=== PATIENT | female | born 1945 | race Caucasian/White ===

== ENCOUNTER 2023-05-03 13:41 | Outpatient (REF) | payer OTHER, SELFPAY ==
--- NOTE | ~2023-05-03 | XR_ITS ---
EXAMINATION: XR HIP, LEFT CLINICAL INFORMATION: Left hip osteoarthritis. COMPARISON: None available. TECHNIQUE: AP view of the lower pelvis as well as a frog-leg lateral view of the left hip. FINDINGS: Severe bilateral hip joint space narrowing with left femoral acetabular bony remodeling/flattening of the femoral head. Prominent left-sided subchondral sclerosis and subchondral cystic change. Large bilateral marginal osteophytes. No acute fracture or dislocation. No concerning lytic or blastic osseous lesion. Pelvic phleboliths. XR/XR hip LT min 2V IMPRESSION: Severe bilateral hip osteoarthritis, left greater than right with bony remodeling/flattening of the left femoral head.
== END 2023-05-03 13:42 | disposition home or self-care (01) ==
LOC: HO.HOSX 13:41
PROVIDERS: PCP Internal Medicine Pulmonary Disease; Visit Provider Orthopaedic Surgery
DX: M16.12 Unilateral primary osteoarthritis, left hip (principal)
CPT/HCPCS: 73502

== ENCOUNTER 2023-05-03 13:41 | Outpatient (AMB) | payer OTHER, SELFPAY ==
--- NOTE | 2023-05-03 14:10 | MHC.OFFVIS ---
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 Peres back in Sep 2022. Pt state her left hip is very painful. Pt states she was told she has a lot of arthritis in her left hip which is causing left leg pain. Pt states this pain started in Aug 2022. Pt denies any injury to her hip prior to her pain. Pt states she has tried OTC medications, ice,heat with no relief. Pt states she had 2 previous injections, one in her hip (Mar 2023) and one in her back (2021) which helped only for a few weeks. Pt denies any previous surgeries on her hip. The patient describes her pain as sharp and severe in nature, 05/22. Patient has difficulty walking even short distances because of her pain. At this point her left hip pain is interfering with her activities of daily living and her ability to sleep well through the night. The patient does walk with a cane. Allergies lisinopril Allergy (Intermediate, Verified 05/03/23 14:14) Muscle cramps pantoprazole Allergy (Intermediate, Verified 05/03/23 14:14) Rash pravastatin Allergy (Intermediate, Verified 05/03/23 14:14) Muscle Pain Medication List - Last Reconciled 05/03/23 by Jim Peres MD amlodipine 5 mg PO DAILY celecoxib 200 mg PO DAILY PFSH Surgical History (Updated 05/03/23 @ 14:19 by Zeina Ulrich MA) History of total right knee replacement (TKR) History of total left knee replacement (TKR) Family History (Updated 05/03/23 @ 14:16 by Zeina Ulrich MA) Mother Breast cancer Sister Dementia Leukemia Father Emphysema of lung Social History (Updated 05/03/23 @ 14:15 by Zeina Ulrich MA) Household Members: Significant Other Housing: Condominium Alcohol intake: current Alcohol intake frequency: holidays/special occasions only Patient Tobacco Use Status: Never used Tobacco Use of substances other than those prescribed or required for medical reasons: No Current occupational status: retired Physical Exam Const Other: Well-nourished well-developed very friendly female awake alert and oriented x3 in no acute distress Extrem Other: Bilateral lower extremity examination shows good capillary refill, no skin lesions noted, normal sensation light touch Left hip examination shows decreased range of motion when compared to her right hip, pain with range of motion, no tenderness over her bursa Results Reviewed Results Reviewed: X-rays of the patient's left hip show severe joint space narrowing with grade 4 [id number] arthritis, subchondral sclerosis, osteophyte formation, no acute bony abnormalities Assessment & Plan Assessment & Plan (1) Arthritis of left hip: Code(s): M16.12 - Unilateral primary osteoarthritis, left hip Plan: Ms. Cormier presents with progressively worsening left hip pain due to end-stage degenerative joint disease. I had a lengthy discussion with the patient regarding the treatment options. At this point she has failed continued non operative treatments. The risks and benefits of left total hip replacement surgery were discussed at length with the patient. The patient wishes to proceed. I will have my office contact the patient to pick a surgery date. I will see her back 1 week prior to her surgery to answer any final questions that she might have. Feel free to call me at any time should questions regarding her orthopedic management arise. Feel free to call me at any time should questions regarding her orthopedic management arise. I spent 22 minutes in reviewing the patient's records and imaging studies, seeing the patient and documenting in the medical record. Orders: Orders XR hip LT min 2V Today M16.12 - Unilateral primary osteoarthritis, left hip Coding Level of Care Code Est Pt Level 2 (10256) Diagnoses Arthritis of left hip M16.12
== END 2023-05-03 15:00 | disposition home or self-care (01) ==
PROVIDERS: PCP Internal Medicine Pulmonary Disease; Visit Provider Orthopaedic Surgery
DX: M16.12 Unilateral primary osteoarthritis, left hip (principal)
CPT/HCPCS: 99212

== ENCOUNTER → 2023-05-23 12:17 | Outpatient (BNVA) | payer OTHER, SELFPAY | PROVIDERS: PCP Internal Medicine Pulmonary Disease; Visit Provider Orthopaedic Surgery ==

== ENCOUNTER 2023-06-13 10:16 | Outpatient (AMB) | payer OTHER, SELFPAY ==
--- NOTE | 2023-06-13 10:35 | A.OFFVIS_ITS ---
Intake Intake Visit Reasons: Preop LT JERRY 06/18/23 NE Intake Note: Ms. Cormier presents with complaints of progressively worsening left hip pain. She describes her pain as sharp and severe in nature, 05/22. Her pain has gotten worse in spite of continued non operative treatments. Pt denies any injury to her hip prior to her pain. Pt states she has tried OTC medications, ice,heat with no relief. Pt states she had 2 previous injections, one in her hip (Mar 2023) and one in her back (2021) which helped only for a few weeks. Pt denies any previous surgeries on her hip. The patient describes her pain as sharp and severe in nature, 05/22. Patient has difficulty walking even short distances because of her pain. At this point her left hip pain is interfering with her activities of daily living and her ability to sleep well through the night. The patient does walk with a cane. The pain management agreement was reviewed with the patient. Allergies pantoprazole Allergy (Intermediate, Verified 06/13/23 10:53) Rash pravastatin Allergy (Intermediate, Verified 06/13/23 10:53) Muscle Pain Medication List - Last Reconciled 06/13/23 by Thania Terrazas RN amlodipine 5 mg PO DAILY celecoxib 200 mg PO BID hydroxyzine HCl 5 mg PO TID PRN walker Folding front wheeled walker [facility] Medical History (Updated 06/08/23 @ 12:18 by Krystina Zapata RN) Eczema HTN (hypertension) Osteoarthritis Surgical History (Updated 06/08/23 @ 12:13 by Krystina Zapata, BOBBY) History of Hx of colonoscopy History of back surgery History of total right knee replacement (TKR) History of total left knee replacement (TKR) Family History (Updated 05/03/23 @ 14:16 by Zeina Ulrich MA) Mother Breast cancer Sister Dementia Leukemia Father Emphysema of lung Social History (Updated 06/08/23 @ 12:16 by Krystina Zapata, BOBBY) Household Members: Spouse Housing: Condominium Are you a primary career development engineer to a significant other at home: No Do you presently have visiting nurse or other home services: No 75 years or older and lives alone: No Alcohol intake: current Alcohol intake frequency: holidays/special occasions only Patient Tobacco Use Status: Never used Tobacco Use of substances other than those prescribed or required for medical reasons: No Current occupational status: retired Physical Exam Const Other: Well-nourished well-developed very friendly female awake alert and oriented x3 in no acute distress Lungs - clear to auscultation bilaterally with symmetric expansion Cardiovascular exam - regular rate and rhythm Abdominal exam - soft nontender nondistended Extrem Other: Bilateral lower extremity examination shows good capillary refill, no skin lesions noted, normal sensation light touch Left hip examination shows decreased range of motion when compared to her right hip, pain with range of motion, no tenderness over her bursa Results Reviewed Results Reviewed: X-rays of the patient's left hip show end-stage degenerative joint disease with grade 4 xxts-le-vytl arthritis, subchondral sclerosis, osteophyte formation, no bony abnormalities Assessment & Plan Assessment & Plan (1) Arthritis of left hip: Code(s): M16.12 - Unilateral primary osteoarthritis, left hip Plan Ms. Cormier presents with progressively worsening left hip pain due to end-stage degenerative joint disease. I had a lengthy discussion with the patient regarding the treatment options. At this point she has failed continued non operative treatments. The risks and benefits of left total hip replacement surgery were discussed at length with the patient. The patient wishes to proceed with surgery. coordinator of rehabilitation services will the following her surgeries are for home physical therapy and nursing. I will see the patient back 2-3 weeks following her surgery for her 1st postoperative appointment. Patient will follow-up as instructed. Feel free to call me at any time should questions regarding her orthopedic management arise. I spent 22 minutes in reviewing the patient's records and imaging studies, seeing the patient and documenting in the medical record. Coding Level of Care Code Est Pt Level 2 (34814) Diagnoses Arthritis of left hip M16.12
== END 2023-06-13 11:31 | disposition home or self-care (01) ==
PROVIDERS: PCP Internal Medicine Pulmonary Disease; Visit Provider Orthopaedic Surgery
DX: M16.12 Unilateral primary osteoarthritis, left hip (principal)
CPT/HCPCS: 99212

== ENCOUNTER → 2023-06-13 10:16 | Outpatient (BNVA) | payer OTHER, SELFPAY | PROVIDERS: PCP Internal Medicine Pulmonary Disease; Visit Provider Orthopaedic Surgery ==

== ENCOUNTER 2023-06-18 06:34 | Inpatient (IN) | payer MEDICARE, SELFPAY ==
[2023-06-08 12:00] VITALS: BP 141/87; PULSE 79; RESP 16; O2SAT 99; BMI 31.9
[2023-06-08 14:19] LABS: MRSA Nasal PCR NEGATIVE (Negative); SA Nasal PCR NEGATIVE (Negative)
--- NOTE | 2023-06-12 12:48 | HO.ANESPROP2 ---
Documented by User: Concha Vidales NP 06/12/23 12:50 HPI - Anesthesia Eval Consult details Narrative: 78yo F for Left Hip Total Replacement PCP cleared PMFSH Active Problems Active Problems: All Active Problems (Updated 06/08/23 @ 12:18 by Krystina Zapata RN) Arthritis of left hip (Acute) Past Medical History Medical History (Updated 06/08/23 @ 12:18 by Krystina Zapata RN) Eczema HTN (hypertension) Osteoarthritis Family History Family History (Updated 05/03/23 @ 14:16 by Zeina Ulrich MA) Mother Breast cancer Sister Dementia Leukemia Father Emphysema of lung Surgical History Surgical History (Updated 06/08/23 @ 12:13 by Krystina Zapata, BOBBY) History of Hx of colonoscopy History of back surgery History of total right knee replacement (TKR) History of total left knee replacement (TKR) Social History Social History (Updated 06/08/23 @ 12:16 by Krystina Zapata RN) Household Members: Significant Other Housing: [facility] Are you a primary neonatal intensive care nurse to a significant other at home: No Do you presently have visiting nurse or other home services: No Alcohol intake: current Alcohol intake frequency: holidays/special occasions only Patient Tobacco Use Status: Never used Tobacco Use of substances other than those prescribed or required for medical reasons: No Have you been hit, kicked, punched, or otherwise hurt by someone within the past year? If so, by whom?: No Do you feel safe in your current relationship?: Yes Is there a partner from a previous relationship who is making you feel unsafe now?: No Are you made to feel afraid or neglected: No Are you DNR?: No Advance Directives: No Advance Directives Information Provided: Yes Advance Directives on File: No Do you have thoughts of harming others: None Do you have a plan to hurt others: No Plan Recently lost weight without trying: No How much weight loss: 2-13 pounds Eating poorly because of decreased appetite: No Nutrition screen score: 1 Nutrition Risks: No Nutritional Risk Patient : No Current occupational status: retired Meds Allergies Allergy/AdvReac Type Severity Reaction Status Date / Time pantoprazole Allergy Intermediate Rash Verified 06/13/23 10:53 pravastatin Allergy Intermediate Muscle Pain Verified 06/13/23 10:53 Home Medications Medication Instructions Recorded Confirmed Last Taken Type amlodipine 5 mg tablet 5 mg PO DAILY 05/03/23 06/13/23 06/18/23 History celecoxib 200 mg capsule 200 mg PO BID 05/03/23 06/13/23 Unknown History hydroxyzine HCl 10 mg tablet 5 mg PO TID PRN Itching 06/08/23 06/13/23 06/18/23 History Exam Exam Date and Time: June 12, 2023 1248 Height,Weight and Vital Signs: Height 5 ft 2 in Weight 79.2 kg Last Vital Signs Pulse 79 06/08/23 12:00 Resp 16 06/08/23 12:00 BP 141/87 H 06/08/23 12:00 Pulse Ox 99 06/08/23 12:00 O2 Del Method Room Air 06/08/23 12:00 Pertinent Lab Results Pertinent Lab Results: Laboratory Tests 06/08/23 06/08/23 12:30 13:08 Nasal Screen MRSA (PCR) NEGATIVE Nasal S. aureus Screen NEGATIVE Nasal MRSA/S.aureus Interp SEE NOTE Blood Type A Positive Antibody Screen NEGATIVE CBC and BMP from outside facility 05/2023 WNL Narrative Narrative: EKG 05/2023 SR @ 72 (WNL per PCP interpret) Assessment and Plan Assessment Anesthesia Assessment: Chart Reviewed Documented by User: Arpit Reilly MD 06/18/23 17:48 HPI - Anesthesia Eval Consult details Narrative: 78yo F for Left Hip Total Replacement PCP cleared Obesity , HTN PMFSH Past Medical History Medical History (Updated 06/08/23 @ 12:18 by Krystina Zapata, BOBBY) Eczema HTN (hypertension) Osteoarthritis Functional capacity: independent ambulation Family History Family History (Updated 05/03/23 @ 14:16 by Zeina Ulrich MA) Mother Breast cancer Sister Dementia Leukemia Father Emphysema of lung Family history of problems with anesthesia: No Surgical History Surgical History (Updated 06/08/23 @ 12:13 by Krystina Zapata, BOBBY) History of Hx of colonoscopy History of back surgery History of total right knee replacement (TKR) History of total left knee replacement (TKR) History of Problems with Anesthesia: No Social History Social History (Updated 06/08/23 @ 12:16 by Krystina Zapata RN) Household Members: Significant Other [facility] Are you a primary neonatal intensive care nurse to a significant other at home: No Do you presently have visiting nurse or other home services: No Alcohol intake: current Alcohol intake frequency: holidays/special occasions only Patient Tobacco Use Status: Never used Tobacco Use of substances other than those prescribed or required for medical reasons: No Have you been hit, kicked, punched, or otherwise hurt by someone within the past year? If so, by whom?: No Do you feel safe in your current relationship?: Yes Is there a partner from a previous relationship who is making you feel unsafe now?: No Are you made to feel afraid or neglected: No Are you DNR?: No Advance Directives: No Advance Directives Information Provided: Yes Advance Directives on File: No Do you have thoughts of harming others: None Do you have a plan to hurt others: No Plan Recently lost weight without trying: No How much weight loss: 2-13 pounds Eating poorly because of decreased appetite: No Nutrition screen score: 1 Nutrition Risks: No Nutritional Risk Patient : No Current occupational status: retired Meds Allergies Allergy/AdvReac Type Severity Reaction Status Date / Time pantoprazole Allergy Intermediate Rash Verified 06/13/23 10:53 pravastatin Allergy Intermediate Muscle Pain Verified 06/13/23 10:53 Home Medications Medication Instructions Recorded Confirmed Last Taken Type amlodipine 5 mg tablet 5 mg PO DAILY 05/03/23 06/13/23 06/18/23 History celecoxib 200 mg capsule 200 mg PO BID 05/03/23 06/13/23 Unknown History hydroxyzine HCl 10 mg tablet 5 mg PO TID PRN Itching 06/08/23 06/13/23 06/18/23 History Exam Airway Mallampati Class: III Partial: Upper Loose/Missing/Broken Teeth: Yes (chipped upper teeth . Poor dentition globally ) Assessment and Plan Assessment Anesthesia Assessment: Anesthesia Plan Discussed Final Anesthetic Review Family History of Problems with Anesthesia: No History of Problems with Anesthesia: No NPO: Yes ASA Class: III Final Preanesthetic Review: Meds/Allgs Chart Reviewed, Consent Obtained/Reviewed and Anes Risks/Benef Reviewed Patient Risk: Intermediate Procedure Risk: Intermediate Anesthetic Plan Anesthetic Plan: GA and Agree w/ Assess. and Plan Disposition: Standard PACU
[2023-06-18] VITALS (16 sets, daily range): BP systolic 121–173; BP diastolic 59–84; PULSE 66–88; RESP 14–24; TEMP 36.1–36.6; O2SAT 92–100; BMI 35.0
--- NOTE | ~2023-06-18 | XR_ITS ---
EXAMINATION: XR PELVIS CLINICAL INFORMATION: Post left hip replacement COMPARISON: Previous x-ray April 2023 TECHNIQUE: AP view of the pelvis. FINDINGS: There is a new left hip replacement in satisfactory position. No fracture or dislocation. There is arthritis at the right hip joint with joint space narrowing and osteophyte formation. Bones of the visualized pelvis are unremarkable. Soft tissues are unremarkable. XR/XR pelvis 1-2V IMPRESSION: Satisfactory appearance of left hip replacement.
--- OUTSIDE RECORDS SUMMARY | 2023-06-18 06:37 | XMS_ITS | Continuity of Care Document ---
Author Name Unknown Organization [facility] Adult Address [address] [place] [address]- Care Team Providers Care German Instructor Name Role Phone Rosalina COLEMAN, Brodie Liu Primary Care Physician [place] [facility] [place]18/19 [facility] [address] [place] [address]- [facility] Encounter Diagnosis Posterior left knee pain(Discharge Diagnosis) - 08/11/19 Hypertension(Discharge Diagnosis) - 08/11/19 Attending Physician: Rudolph COLEMAN, Rosibel Allergies, Adverse Reactions, Alerts Substance Reaction Severity Status pravastatin Myalgia, unspecified site Ac tive lisinopril Headache Active pantoprazole Rash Active Immunizations Given and Recorded Vaccine Date Status Refusal Reason influenza virus vaccine, inactivated 1 06/18/19 Gi teena influenza virus vaccine, inactivated 2 05/29/18 Gi teena influenza virus vaccine, inactivated 06/11/14 Give n influenza virus vaccine, inactivated 05/13/10 Give n pneumococcal 13-valent vaccine 05/17/15 Given tetanus/diphtheria/pertussis, acel(Tdap) 03/24/13 Given pneumococcal 23-valent vaccine 03/24/13 Given Diphth-Tetanus Toxoids Adsorbed(oldterm) 10/26/06 Given Not Given Vaccine Date Status Refusal Reason influenza virus vaccine, inactivated 09/13/13 Not Given Patient Refuses influenza virus vaccine, inactivated 3 09/09/13 No t Given Patient Refuses 1Result Comment: Flu High Dose [facility] [place] [id number] 2Result Comment: [facility] [place] [id number] 3Result Note: pt refused Medications amLODIPine 5 mg oral tablet 5 mg, 1, tablet, By Mouth, Daily, TAKE IN THE MORNING, # 90 tablet, Refills 1, Tot. Refills 1, Maintenance, 04/02/19 8:13:35 EDT, Route to Pharmacy Electronically, [id number], [id number] Start Date: 04/02/19 Stop Date: 09/29/19 Status: Ordered Calcium (as carbonate)-vitamin D 500 mg-400 intl units oral tablet, chewable 1 tablet, Chew, 3 times a day, # 60 tablet, 0 Refills, Maintenance, Chew Tablet Start Date: 11/09/09 Status: Ordered hydrOXYzine hydrochloride 10 mg oral tablet 1 tablet = 10 mg, By Mouth, 3 times a day, PRN as needed for itching, 0 Refills, Maintenance, 06/18/19 11:30:17 EST Start Date: 06/18/19 Status: Ordered MiraLax Powder = 17 Gm, By Mouth, Daily, PRN Constipation, 0 Refills, Maintenance, 09/13/13 11:08:13, Powder Start Date: 09/13/13 Status: Ordered Multivitamin Tablet 1 tablet, By Mouth, Daily, # 30, 0 Refills, Maintenance Start Date: 11/09/09 Status: Ordered Problem List Condition Effective Dates Status Health Status Inform ant Esophageal reflux(Confirmed) Active Hypertension(Confirmed) Active Hyperlipidemia(Confirmed) Active Itching(Confirmed) Active Low back pain(Confirmed) Active Lumbar disc prolapse with radiculopathy(Confirmed) Active Overweight(Confirmed) Active Spondylosis(Confirmed) 1 Active 1lumbar region Diagnosis Diagnosis Type Effective Dates Health Status Clinical Service Informant Posterior left knee pain Discharge Diagnosis 08/11/19 Hypertension Discharge Diagnosis 08/11/19 Vital Signs Most recent to oldest [Reference Range]: 1 2 Height 163 cm (08/11/19 2:00 PM) 163 cm (08/11/19 1:38 PM) Weight 78.3 kg (08/11/19 1:38 PM) Body Mass Index [18.5-24.99] 29.47 *H* (08/11/19 1:38 PM) Blood Pressure [90-138/55-84 mm Hg] 134/ 86mm Hg (08/11/19 2:00 PM) 142/92mm Hg *H* (08/11/19 1:38 PM) Temperature [96.8-100.4 DegF] 98.6 DegF (08/11/19 1:38 PM) Blood pressure sites Arm, left (08/11/19 1:38 PM) Temperature Route Oral (08/11/19 1:38 PM) Social History Social History Type Response Smoking Status Never smoker entered on: 05/17/15 Sex
--- OUTSIDE RECORDS SUMMARY | 2023-06-18 06:37 | XMS_ITS | Continuity of Care Document ---
Author Name Unknown Organization [facility] Adult Address [address] [place] [address]- Care Team Providers Care Railway Equipment Operator Name Role Phone Rosalina COLEMAN, Brodie Liu Primary Care Physician Encounter [facility] Date(s): 06/24/20 - 07/24/20 [facility] Adult [address] [place] [address]- Allergies, Adverse Reactions, Alerts Substance Reaction Severity Status pravastatin Myalgia, unspecified site Ac tive lisinopril Headache Active pantoprazole Rash Active Immunizations Given and Recorded Vaccine Date Status Refusal Reason Influenza Virus Vaccine (oldterm) 05/13/20 Recorde d influenza virus vaccine, inactivated 1 06/18/19 Gi [...] Patient Refuses 1Result Comment: Flu High Dose [facility] [id number] 2Result Comment: [facility] [id number] 3Result Note: pt refused Medications amLODIPine 5 mg oral tablet 5 mg, 1, tablet, By Mouth, Daily, TAKE IN THE MORNING, # 90 tablet, Refills 0, Tot. Refills 0, Maintenance, 06/23/20 13:30:00 EST, Route to Pharmacy Electronically, [id number], 163, cm, 06/23/20 13:27:00 EST, Height Start Date: 06/23/20 Stop Date: 09/21/20 Status: Ordered biotin 10 mg oral tablet 1 tablet = 10 mg, By Mouth, Daily, # 30 tablet, 0 Refills, Maintenance, 06/23/20 13:30:00 EST, Tablet Start Date: 06/23/20 Status: Ordered Calcium (as carbonate)-vitamin D 500 mg-400 intl units oral tablet, chewable 1 tablet, Chew, 3 times a day, # 60 tablet, 0 Refills, Maintenance, Chew Tablet Start Date: 11/09/09 Status: Ordered High Potency Probiotic By Mouth, Daily, 0 Refills, Maintenance, 06/23/20 13:31:00 EST Start Date: 06/23/20 Status: Ordered hydrOXYzine hydrochloride 10 mg oral tablet 1 tablet = 10 mg, By Mouth, 3 times a day, PRN as needed for itching, # 90 tablet, 3 Refills, Maintenance, 06/23/20 13:30:00 EST, Tablet, [facility][id number], 163, cm, 06/23/20 13:27:00 EST, Height Start Date: 06/23/20 Status: Ordered Metamucil 3.4 gm/5.2 gm oral powder for reconstitution = 1.7 Gm, By Mouth, 3 times a day, PRN as needed for constipation, # 283 Gm, 0 Refills, Maintenance, 06/23/20 13:31:00 EST, REC Powder Start Date: 06/23/20 Status: Ordered Multivitamin Tablet 1 tablet, By Mouth, Daily, # 30, 0 Refills, Maintenance Start Date: 11/09/09 Status: Ordered Problem List Condition Effective Dates Status Health Status Inform ant Esophageal reflux(Confirmed) Active Hypertension(Confirmed) Active Hyperlipidemia(Confirmed) Active Itching(Confirmed) Active Low back pain(Confirmed) Active Lumbar disc prolapse with radiculopathy(Confirmed) Active Overweight(Confirmed) Active Spondylosis(Confirmed) 1 Active 1lumbar region Social History Social History Type Response Smoking Status Never smoker entered on: 05/17/15 Sex
--- OUTSIDE RECORDS SUMMARY | 2023-06-18 06:37 | XMS_ITS | Continuity of Care Document ---
Author Name Unknown Organization [facility] Adult Address [address] [place] [address]- Care Team Providers Care Manager Wound Care Name Role Phone Yobany COLEMAN, Moses Hunt Primary Care Physician Encounter [facility] [place] Date(s): 10/06/20 - 11/05/20 [facility] Adult [address] [place] [address]- Allergies, Adverse Reactions, Alerts Substance Reaction Severity [...] Patient Refuses 1Result Comment: Flu High Dose [facility] [id number] 2Result Comment: [facility] [id number] 3Result Note: pt refused Medications amLODIPine 5 mg oral tablet 5 mg, 1, tablet, By Mouth, Daily, TAKE IN THE MORNING, # 90 tablet, Refills 1, Tot. Refills 1, Maintenance, 09/21/20 13:30:00 EST, Route to Pharmacy Electronically, [facility] #[id number], 163, cm, 06/23/20 13:27:00 EST, Height Start Date: 09/21/20 Stop Date: 03/20/21 Status: Ordered biotin 10 mg oral tablet [...] 3 Refills, Maintenance, 06/23/20 13:30:00 EST, Tablet, [facility]/pharm[facility] #[id number], 163, cm, 06/23/20 13:27:00 EST, Height [...]
--- OUTSIDE RECORDS SUMMARY | 2023-06-18 06:37 | XMS_ITS | Continuity of Care Document ---
Author Name Unknown Organization [facility] Adult Address [address] [place] [address]- Care Team Providers Care Pot Pusher Name Role Phone Yobany COLEMAN, Moses F Primary Care Physician Encounter [facility] Date(s): 06/27/21 - 07/27/21 [facility] Adult [address], [place] [address] Attending Physician: Admtr, Ar8 Allergies, Adverse Reactions, Alerts Substance Reaction Severity [...] Refuses 1Result Comment: Flu High Dose [facility] [id number] 2Result Comment: [facility] [phone] 3Result Note: pt refused Medications amLODIPine 5 mg oral tablet 5 mg, 1, tablet, By Mouth, Daily, TAKE IN THE MORNING, # 90 tablet, Refills 1, Tot. Refills 1, Maintenance, 09/21/20 13:30:00 EST, Route to Pharmacy Electronically, [facility]/pharmacy #[id number], 163, cm, 06/23/20 13:27:00 EST, Height [...] 3 Refills, Maintenance, 06/23/20 13:30:00 EST, Tablet, [facility]/pharmacy #[id number], 163, cm, 06/23/20 13:27:00 EST, Height [...]
--- OUTSIDE RECORDS SUMMARY | 2023-06-18 06:37 | XMS_ITS | Continuity of Care Document ---
Author Name Unknown Organization [facility] ter Address [address] [place] [address]- Care Team Providers Care Fur Finisher Name Role Phone Brodie Romano MD Primary Care Physician [id number] Date(s): 07/13/20 - 09/03/[address] [address] Attending Physician: Brodie Romano MD Admitting Physician: Brodie Romano MD Referring Physician: Brodie Romano MD Allergies, Adverse Reactions, Alerts Substance Reaction Severity [...] Patient Refuses 1Result Comment: Flu High Dose [facility] [phone] 2Result Comment: [facility] [phone] 3Result Note: pt refused Medications amLODIPine 5 mg oral tablet 5 mg, 1, tablet, By Mouth, Daily, TAKE IN THE MORNING, # 90 tablet, Refills 0, Tot. Refills 0, Maintenance, 06/23/20 13:30:00 EST, Route to Pharmacy Electronically, [facility]/pharmacy #[id number], 163, cm, 06/23/20 13:27:00 EST, Height [...] 3 Refills, Maintenance, 06/23/20 13:30:00 EST, Tablet, [facility]/pharmacy #[id number], 163, cm, 06/23/20 13:27:00 EST, Height [...]
--- OUTSIDE RECORDS SUMMARY | 2023-06-18 06:37 | XMS_ITS | Continuity of Care Document ---
Author Name Unknown Organization [facility] ter Address [address] [place] [address]- Care Team Providers Care Assistive Technology Trainer Name Role Phone Rosalina COLEMAN, Brodie Liu Primary Care Physician Encounter [facility] Date(s): 08/25/19 - 09/01/[address] [address]- [facility] Attending Physician: Cheikh Bhakta Allergies, Adverse Reactions, Alerts Substance Reaction Severity [...] Refuses 1Result Comment: Flu High Dose [facility] [phone] 2Result Comment: [facility] 44260-099-41 3Result Note: pt refused Medications amLODIPine 5 mg oral tablet 5 mg, 1, tablet, By Mouth, Daily, TAKE IN THE MORNING, # 90 tablet, Refills 1, Tot. Refills 1, Maintenance, 04/02/19 8:13:35 EDT, Route to Pharmacy Electronically, [id number], [facility] # [id number] Start Date: 04/02/19 Stop [...]
--- OUTSIDE RECORDS SUMMARY | 2023-06-18 06:37 | XMS_ITS | Continuity of Care Document ---
Author Name Unknown Organization [facility] Adult Address [address] [place] [address]- Care Team Providers Care Concrete Mixing Plant Superintendent Name Role Phone Rosalina COLEMAN, Brodie Liu Primary Care Physician [place] [facility] [place] 08/19/20 - 09/18/20 [facility] Adult [address] [place] [address]- Allergies, Adverse Reactions, Alerts Substance Reaction Severity [...] Patient Refuses 1Result Comment: Flu High Dose [facility] [phone] 2Result Comment: [facility] [phone] 3Result Note: pt refused Medications amLODIPine 5 mg oral tablet 5 mg, 1, tablet, By Mouth, Daily, TAKE IN THE MORNING, # 90 tablet, Refills 1, Tot. Refills 1, Maintenance, 09/21/20 13:30:00 EST, [id number], cm, 06/23/20 13:27:00 EST, Height Start Date: 09/21/20 Stop Date: 03/20/21 Status: Ordered amLODIPine 5 mg oral tablet 5 mg, 1, tablet, By Mouth, Daily, for 90 days, TAKE IN THE MORNING, # 90 tablet, Refills 0, Tot. Refills 0, Hard Stop 09/21/20 13:30:00 EST, 06/23/20 13:30:00 EST, [id number], cm, 06/23/20 13:27:00 EST, H... Start Date: 06/23/20 Stop Date: 09/21/20 Status: [...] 3 Refills, Maintenance, 06/23/20 13:30:00 EST, Tablet, [facility]/pharmacy #[id number], 163, cm, 06/23/20 13:27:00 [...]
--- OUTSIDE RECORDS SUMMARY | 2023-06-18 06:37 | XMS_ITS | Continuity of Care Document ---
Author Name Unknown Organization [facility] Adult Address [address] [place] [address]- Care Team Providers Care Fur Dresser Name Role Phone Yobany COLEMAN, Moses Hunt Primary Care Physician [place] [facility] [place] 03/29/21 - 07/27/21 [facility] Adult [address] [place] [address]- Attending Physician: Brodie Romano MD Allergies, Adverse Reactions, [...] Patient Refuses 1Result Comment: Flu High Dose [facility] [phone] 2Result Comment: [facility] [phone] 3Result Note: pt refused Medications amLODIPine 5 mg oral tablet 5 mg, 1, tablet, By Mouth, Daily, TAKE IN THE MORNING, # 90 tablet, Refills 1, Tot. Refills 1, Maintenance, 09/21/20 13:30:00 EST, Route to Pharmacy Electronically, [facility]/pharmacy #[id number], 163, cm, 06/23/20 13:27:00 EST, Height [...] 3 Refills, Maintenance, 06/23/20 13:30:00 EST, Tablet, [facility]/pharmacy #[id number], 163, cm, 06/23/20 13:27:00 EST, Height [...]
--- OUTSIDE RECORDS SUMMARY | 2023-06-18 06:37 | XMS_ITS | Continuity of Care Document ---
Author Name Unknown Organization [facility] Adult Address [address] [place] [address]- Care Team Providers Care Harp Action Assembler Name Role Phone Rosalina COLEMAN, Brodie Liu Primary Care Physician [place] [facility] [place] 03/29/20 - 05/06/20 [facility] Adult [address] [place] [address]- [facility] Attending Physician: Luís COLEMAN, [facility] Allergies, Adverse Reactions, Alerts Substance Reaction Severity [...] Patient Refuses 1Result Comment: Flu High Dose [facility] [phone] 2Result Comment: [facility] 93208-900-22 3Result Note: pt refused Medications amLODIPine 5 mg oral tablet 5 mg, 1, tablet, By Mouth, Daily, TAKE IN THE MORNING, # 90 tablet, Refills 0, Tot. Refills 0, Maintenance, 03/04/20 11:11:00 EDT, Route to Pharmacy Electronically, [facility] # [id number], 163, cm, 08/11/19 14:00:00 EST, Height Start Date: 03/04/20 Stop Date: 06/02/20 Status: Ordered Calcium (as carbonate)-vitamin D 500 [...]
--- OUTSIDE RECORDS SUMMARY | 2023-06-18 06:37 | XMS_ITS | Continuity of Care Document ---
Author Name Unknown Organization [facility] Adult Address [address] [place] [address]- Care Team Providers Care Business Executive Name Role Phone Rosalina COLEMAN, Brodie Liu Primary Care Physician Encounter [facility] Date(s): 06/24/20 - 07/24/20 [facility] Adult [address] [place] [address]- Allergies, Adverse Reactions, Alerts Substance Reaction Severity [...] Patient Refuses 1Result Comment: Flu High Dose [facility] [id number] 2Result Comment: [facility] [phone] 3Result Note: pt refused Medications amLODIPine 5 [...] 3 Refills, Maintenance, 06/23/20 13:30:00 EST, Tablet, [facility]/pharmacy #[id number], 163, cm, 06/23/20 13:27:00 EST, Height [...]
--- OUTSIDE RECORDS SUMMARY | 2023-06-18 06:37 | XMS_ITS | Continuity of Care Document ---
Author Name Unknown Organization [facility] Adult Address [address] [place] [address]- Care Team Providers Care Show Host/Hostess Name Role Phone Rosalina COLEMAN, Brodie Liu Primary Care Physician Encounter [facility] Date(s): 07/05/20 - 08/04/20 [facility] Adult [address] [place] [address]- Allergies, Adverse Reactions, Alerts Substance Reaction Severity [...] Patient Refuses 1Result Comment: Flu High Dose [facility] [id number] 2Result Comment: [facility] [phone] 3Result Note: pt refused Medications amLODIPine 5 [...] 3 Refills, Maintenance, 06/23/20 13:30:00 EST, Tablet, [facility]/pharmacy #[id number], 163, cm, 06/23/20 13:27:00 EST, Height [...]
--- OUTSIDE RECORDS SUMMARY | 2023-06-18 06:37 | XMS_ITS | Continuity of Care Document ---
Author Name Unknown Organization [facility] Adult Address [address] [place] [address]- Care Team Providers Care Physician Chief Of Pathology Name Role Phone Rosalina COLEMAN, Brodie Liu Primary Care Physician Encounter [facility] [place] Date(s): 08/11/19 - 08/21/19 [facility] Adult [address] [place] [address]- [facility] Attending Physician: Admtr, Ar8 Allergies, Adverse Reactions, [...] Patient Refuses 1Result Comment: Flu High Dose [facility] [phone] 2Result Comment: [facility] [phone] 3Result Note: pt refused Medications amLODIPine 5 mg oral tablet 5 mg, 1, tablet, By Mouth, Daily, TAKE IN THE MORNING, # 90 tablet, Refills 1, Tot. Refills 1, Maintenance, 04/02/19 8:13:35 EDT, Route to Pharmacy Electronically, [id number], [id number] Start Date: 04/02/19 Stop [...]
--- OUTSIDE RECORDS SUMMARY | 2023-06-18 06:37 | XMS_ITS | Continuity of Care Document ---
Author Name Unknown Organization [facility] Adult Address [address] [place] [address]- Care Team Providers Care Engineering Designer Name Role Phone Rosalina COLEMAN, Brodie Liu Primary Care Physician Encounter [facility] Date(s): 07/13/20 - 08/12/20 [facility] Adult [address] [place] [address]- Allergies, Adverse Reactions, Alerts Substance Reaction Severity [...] Patient Refuses 1Result Comment: Flu High Dose [facility] [phone] 2Result Comment: [facility] 96383-327-25 3Result Note: pt refused Medications amLODIPine 5 mg oral tablet 5 mg, 1, tablet, By Mouth, Daily, TAKE IN THE MORNING, # 90 tablet, Refills 0, Tot. Refills 0, Maintenance, 06/23/20 13:30:00 EST, Route to Pharmacy Electronically, [facility]/pharmacy #[id number], 163, cm, 06/23/20 13:27:00 [...] Refills, Maintenance, 06/23/20 13:30:00 EST, Tablet, [facility]/pharmacy #[id number], 163, cm, 06/23/20 13:27:00 [...]
--- OUTSIDE RECORDS SUMMARY | 2023-06-18 06:37 | XMS_ITS | Continuity of Care Document ---
Author Name Unknown Organization [facility] Adult Address [address] [place] [address]- Care Team Providers Care Marine Surveyor Name Role Phone Rosalina COLEMAN, Brodie Liu Primary Care Physician En[place] [facility] [place] Date(s): 03/04/20 - 04/03/20 [facility] Adult [address] [place] [address]- [facility] Allergies, Adverse Reactions, Alerts Substance Reaction Severity [...] Comment: Flu High Dose [facility] [phone] 2Result Comment: [facility] [phone] 3Result Note: pt refused Medications amLODIPine 5 mg oral tablet 5 mg, 1, tablet, By Mouth, Daily, TAKE IN THE MORNING, # 90 tablet, Refills 0, Tot. Refills 0, Maintenance, 03/04/20 11:11:00 EDT, Route to Pharmacy Electronically, [facility] # [id number], 163, cm, 08/11/19 14:00:00 [...]
[2023-06-18] MEDS: Lactated Ringers 1,000 ML 100 ML IVCONT ×2 (06:46→14:56)
[2023-06-18] MEDS: oxyCODONE HCl ER 10 MG TAB.ER.12H PO ×2 (06:46→19:31)
--- NOTE | 2023-06-18 10:25 | PM.OP ---
Brief Operative Note Date of Service: 06/18/23 Pre-op diagnosis: Left hip degenerative joint disease Post-op diagnosis: same Procedure: Left total hip arthroplasty Implants: Tyndall Triathlon press-fit total hip arthroplasty with an Accolade II femoral stem size 4 with a 127 degree neck-shaft angle, a Trident II Tritanium acetabular component with cluster hole size 50, a Biolox ceramic femoral head size 36 with a-5 mm neck, polyethylene liner size 36D with no lip, 1 Khadijah-Devin cable Surgeon: Jim Peres MD Anesthesia: GETA Was an Game Artist used for this Procedure?: Yes Game Artist: Lisbeth Thurston Estimated blood loss (mL): 200 Pathology: other (Left femoral head) Condition: stable Disposition: PACU
--- NOTE | 2023-06-18 10:28 | P.OP_ITS ---
Operative Note Operative Note Date of Service: 06/18/23 Narrative: After the patient was identified as Rosibel Cormier and their left hip was initialed by myself the patient was brought to the operating room where general anesthesia via endotracheal tube was induced by the anesthesiologist in routine fashion. The patient was given 2 g of IV Ancef for infection prophylaxis. The patient was then gently rolled into the lateral position. An axillary roll was put into place. All bony prominences were well padded. The patient's pelvis was held securely with hip bolsters. The patient's left hip region and lower extremity were prepped and draped in sterile fashion. A #10 scalpel blade was then used to make a curvilinear incision centered over the greater trochanter. The subcutaneous tissues were dissected using electrocautery down to the fascia pippa. The fascia pippa was then split in line with the skin incision using electrocautery. The split in the fascia pippa was curved posteriorly along its cephalad aspect to help prevent injury to the innervation of the tensor fascia pippa muscle. The patient's leg was gently externally rotated. A lateral Moser approach was then taken down to the anterior joint capsule. The anterior half of the vastus lateralis was split 1 cm from its insertion and tagged with #2 Ethibond suture. The anterior 1/3 of the gluteus medius incision was then split using electrocautery and tagged with #2 Ethibond suture. An anterior capsulectomy was then performed using electrocautery. The patient's femoral head was then dislocated anteriorly using a hook and gentle traction. Soft tissues were retracted around the femoral neck. The femoral neck cut was then made using a sagittal saw 1 cm proximal to the lesser trochanter. Our attention was then directed to the acetabulum. The labrum was removed using electrocautery. Soft tissue within the cotyloid notch was removed using electrocautery and a rongeur. The femoral head measured to be a size 44 mm. Thus, reaming was begun with a 44 mm reamer. Reaming was performed at 45 degrees of abduction and 20 degrees of anteversion. Reaming was increased incrementally up to a size 50 reamer. At this point we had reached the medial wall of the acetabulum. The acetabulum was irrigated with copious amounts of normal saline solution via pulse lavage. The final size 50 acetabular component was then impacted into place with 45 degrees of abduction and 20 degrees of anteversion. Two cancellous screws were then placed into the superior position. The anterior screw measured 25 mm in length and the posterior screw measured 20 mm in length. The acetabular component was irrigated with copious amounts of normal saline solution via pulse lavage. The polyethylene liner was then impacted into place with the lip in the posterior-superior position. A small sponge was placed into the acetabular component to protect it during preparation of the proximal femur. Our attention was then directed to the proximal femur. A Dall-Miles cable was placed just distal to the lesser trochanter to help prevent periprosthetic fracture. The patient's leg was then placed into a sterile pouch along the anterior aspect of the surgical suite table. Soft tissues were retracted around the proximal femur. A box cutting osteotome was used to make a groove in the medial aspect of the greater trochanter. Broaching was begun with a size 1 broach. Broaching was increased up to a size 4 broach. The size 4 broach fit well. There was both linear and rotational stability. The broach was removed. The intramedullary canal was irrigated with copious amounts of normal saline solution via pulse lavage. The final implant was impacted into place. There was both rotational and linear stability. The Dall- Miles cable was tightened and cut in routine fashion. A trial size 36 head with -5 mm neck was put into place. The hip was reduced. Leg lengths were clinically equal. The hip was taken through a full range of motion. There was no instability. The hip was once again dislocated and the patient's leg was placed into the sterile pouch. The trial head was removed. The wound was irrigated with copious amounts of normal saline solution via pulse lavage. The final head was impacted in the place. Leg lengths were clinically equal. Hip was taken through a full range of motion. There was no instability. The patient's leg was then placed onto a well-padded Duran stand. The wound was once again irrigated. The vastus lateralis and tensor fascia pippa tendons were repaired with #2 Ethibond [id number] interrupted suture. The wound was once again irrigated. The fascia pippa was closed with #2 Ethibond [id number] interrupted suture as well as #1 Vicryl [id number]-[id number]-uured interrupted suture. The wound was once again irrigated. The subcutaneous tissues were closed with 0 Vicryl and 2-0 Vicryl interrupted suture. The skin was closed with skin tank. Dry sterile dressing was placed over the incision. The patient was gently rolled into the supine position. The patient was awoken and extubated in the operating room. The patient was transferred to the recovery room in stable condition.
[2023-06-18] MEDS: oxyCODONE HCl Immed Release 5 MG TABLET PO (11:15)
[2023-06-18] MEDS: HYDROmorphone HCl 0.5 MG/0.5 ML SYRINGE 0.25 MG IVPUSH ×4 (11:15→11:40)
--- NOTE | 2023-06-18 12:54 | PHA.MEDREC ---
Pharmacy Consult ? Medication Reconciliation Pharmacy has completed the medication reconciliation. Reviewed med rec done by nursing
[2023-06-18] MEDS: oxyCODONE HCl Immed Release 5 MG TABLET 10 MG PO ×2 (14:55→19:31)
[2023-06-18] MEDS: ceFAZolin Sodium/Dextrose,Iso 2 GM/50 ML PIGGYBACK IV (14:56)
--- NOTE | 2023-06-18 16:54 | P.CONHOSP_ITS ---
History of Present Illness Data of Consult Service Date: 06/18/23 <Sapphire Buckley NP - Last Filed: 06/18/23 17:04> Primary Care Provider: Moses Haywood MD <Sapphire Buckley NP - Last Filed: 06/18/23 17:04> HPI 78-year-old woman with history of hypertension admitted for orthopedic surgery, total left hip arthroplasty. Surgery was unremarkable. Patient has been able to eat and drink without any nausea or vomiting. She does have a moderate amount of pain at this time. Her vital signs are stable and she is hemodynamically stable. She has no acute medical complaints at this time. < Sapphire Buckley NP - Last Filed: 06/18/23 17:04> 78-year-old woman with history of hypertension admitted for orthopedic surgery, total left hip arthroplasty. Surgery was unremarkable. Patient has been able to eat and drink without any nausea or vomiting. She does have a moderate amount of pain at this time. Her vital signs are stable and she is hemodynamically stable. She has no acute medical complaints at this time. < Chaz Márquez MD - Last Filed: 07/26/23 11:45> Review of Systems 2 Review of Systems: Denies any recent fever chills or decrease in appetite respiratory denies any shortness of breath coverage production cardiovascular is adjustment of any PND or edema gastrointestinal denies any dysphagia abdominal pain nausea vomiting or diarrhea genitourinary denies any dysuria frequency or hematuria musculoskeletal denies any joint pain or swelling neuropsych denies any weakness or seizures all other systems reviewed are negative <Sapphire Buckley NP - Last Filed: 06/18/23 17:04> [facility] Medical History: Medical History (Updated 06/21/23 @ 00:02 by Silke Vargas) Arthritis of left hip Eczema HTN (hypertension) Osteoarthritis <Sapphire Buckley NP - Last Filed: 06/18/23 17:04> Functional capacity: independent ambulation <Sapphire Buckley NP - Last Filed: 06/18/23 17:04> Family History: Family History (Updated 05/03/23 @ 14:16 by Zeina Ulrich MA) Mother Breast cancer Sister Dementia Leukemia Father Emphysema of lung <Sapphire Buckley NP - Last Filed: 06/18/23 17:04> Surgical History: Surgical History History of Hx of colonoscopy History of back surgery History of total right knee replacement (TKR) History of total left knee replacement (TKR) <Sapphire Buckley NP - Last Filed: 06/18/23 17:04> Social History: Social History Household Members: Significant [facility] Are you a primary manager care to a significant other at home: No Do you presently have visiting nurse or other home services: No 75 years or older and lives alone: No Alcohol intake: current Alcohol intake frequency: holidays/special occasions only Comment: all counts correct Patient Tobacco Use Status: Never used Tobacco service: No Current occupational status: retired <Sapphire Buckley NP - Last Filed: 06/18/23 17:04> Meds Allergies/Adverse reactions: Allergies Allergy/AdvReac Type Severity Reaction Status Date / Time pantoprazole Allergy Intermediate Rash Verified 07/04/23 11:44 pravastatin Allergy Intermediate Muscle Pain Verified 07/04/23 11:44 <Sapphire Buckley NP - Last Filed: 06/18/23 17:04> Active Medications: Current Medications Acetaminophen (Acetaminophen 325 Mg Tablet) 650 mg PO Q6H PRN PRN Reason: Pain, Mild (Pain Scale 1-3) Amlodipine Besylate (Amlodipine Besylate 5 Mg Tablet) 5 mg PO DAILY [facility]; Protocol Aspirin (Aspirin 325 Mg Tablet) 325 mg PO Q12H [facility] Celecoxib (Celecoxib 200 Mg Capsule) 200 mg PO BID [facility] Last Admin: 06/18/23 15:03 Dose: Not Given Docusate Sodium (Docusate Sodium 100 Mg Capsule) 100 mg PO BID [facility] Last Admin: 06/18/23 15:03 Dose: Not Given Hydromorphone HCl (Hydromorphone Hcl 0.5 Mg/0.5 Ml Syringe) 0.25 mg IVPUSH Q4H PRN; Protocol PRN Reason: Pain, Severe (Pain Scale 7-10) Hydromorphone HCl (Hydromorphone Hcl 0.5 Mg/0.5 Ml Syringe) 0.5 mg IVPUSH Q4H PRN; Protocol PRN Reason: Pain, Severe (Pain Scale 7-10) Hydroxyzine HCl (Hydroxyzine Hcl 10 Mg Tablet) 5 mg PO TID PRN PRN Reason: Itching Lactated Ringer's (Lr) 1,000 mls @ 100 mls/hr IVCONT .Q10H [facility] Last Admin: 06/18/23 14:56 Dose: 100 mls/hr Lactated Ringer's (Lr) 1,000 mls @ 100 mls/hr IVCONT .Q10H [facility] Promethazine HCl 6.25 mg/ (Sodium Chloride) 50.25 mls @ 201 mls/hr IV ONCE PRN PRN Reason: Nausea and Vomiting Ondansetron HCl (Ondansetron Hcl 4 Mg/2 Ml Vial) 4 mg IVPUSH Q8H PRN PRN Reason: Nausea and Vomiting Oxycodone HCl (Oxycodone Hcl Immed Release 5 Mg Tablet) 5 mg PO Q4H PRN PRN Reason: Pain, Moderate(Pain Scale 4-6) Last Admin: 06/18/23 11:15 Dose: 5 mg Oxycodone HCl (Oxycodone Hcl Er 10 Mg Tab.Er.12h) 10 mg PO BID [facility] Last Admin: 06/18/23 15:04 Dose: Not Given Oxycodone HCl (Oxycodone Hcl Immed Release 5 Mg Tablet) 10 mg PO Q4H PRN PRN Reason: Pain, Moderate(Pain Scale 4-6) Last Admin: 06/18/23 14:55 Dose: 10 mg Sodium Chloride (0.9 % Sodium Chloride Flush 3 Ml Syringe) 3 ml IVFLUSH QSHIFT [facility] Last Admin: 06/18/23 14:48 Dose: Not Given <Sapphire Buckley NP - Last Filed: 06/18/23 17:04> Home medications: Home Medications Medication Instructions Recorded Confirmed Last Taken Type amlodipine 5 mg tablet 5 mg PO DAILY 05/03/23 06/13/23 06/18/23 History celecoxib 200 mg capsule 200 mg PO BID 05/03/23 06/13/23 Unknown History hydroxyzine HCl 10 mg tablet 5 mg PO TID PRN Itching 06/08/23 06/13/23 06/18/23 History <Sapphire Buckley NP - Last Filed: 06/18/23 17:04> Physical Exam 2 Vital Signs and Narrative: Vital Signs: Last Vital Signs Temp 98 F 06/18/23 16:06 Pulse 85 06/18/23 16:06 Resp 20 06/18/23 16:06 BP 147/77 H 06/18/23 16:06 Pulse Ox 98 06/18/23 16:06 O2 Del Method Room Air 06/18/23 16:06 O2 Flow Rate 2 06/18/23 12:00 BMI result Body Mass Index 35.0 <Sapphire Buckley NP - Last Filed: 06/18/23 17:04> Appearing in no acute distress head is normocephalic atraumatic eyes pupils are PERRLA sclera is anicteric mouth throat mucous membranes are intact and moist neck is supple no lymphadenopathy, no JVD noted lung sounds are clear to auscultation heart regular rate rhythm, clear S1, S2 positive bowel sounds, abdomen is soft, nontender neuro patient is alert x3, no focal deficits <Sapphire Buckley NP - Last Filed: 06/18/23 17:04> Results Labs CBC and Chem 7: 06/20/23 05:20 06/20/23 05:20 <Sapphire Buckley NP - Last Filed: 06/18/23 17:04> Imaging Radiologist's Impressions: Impressions Pelvis X-Ray 06/18/23 15:24 IMPRESSION: Satisfactory appearance of left hip replacement. <Sapphire Buckley NP - Last Filed: 06/18/23 17:04> Assessment and Plan (1) Arthritis of left hip: Status: Inactive <Sapphire Buckley NP - Last Filed: 06/18/23 17:04> 78-year-old woman with history of hypertension status post total left knee arthroplasty Total left hip arthroplasty Management as per surgical team Pain management Hypertension stable blood pressure Continue amlodipine DVT prophylaxis with full-dose aspirin Full code Medical consultation complete. Please contact the hospitalist team further assistance with acute medical issues. Will sign off <Sapphire Buckley NP - Last Filed: 06/18/23 17:04>
[2023-06-18] MEDS: Acetaminophen 325 MG TABLET 650 MG PO (19:31)
[2023-06-18] MEDS: Aspirin 325 MG TABLET PO (19:31)
[2023-06-18] MEDS: Celecoxib 200 MG CAPSULE PO (19:32)
[2023-06-18] MEDS: Docusate Sodium 100 MG CAPSULE PO (19:32)
[2023-06-19] VITALS (7 sets, daily range): BP systolic 134–147; BP diastolic 70–83; PULSE 88–101; RESP 16–20; TEMP 36.4–36.8; O2SAT 94–99
[2023-06-19] MEDS: Lactated Ringers 1,000 ML 100 ML IVCONT (01:33)
[2023-06-19 05:35] LABS: MANUAL DIFF FLAG NO
[2023-06-19 05:45] LABS: Basophils Percent Auto 0.3 % (0-2); Eosinophils Percent Auto 0.1 % (0-4); Hematocrit 32.4 % (37.0-47.0); Hemoglobin 10.8 g/dl (12.0-16.0); Imm Gran Abs Auto 0.06 X10*3/uL (0.00-0.03); Imm Gran Pct Auto 0.4 % (0.0-0.4); Lymphocytes Percent Auto 21.6 % (20-40); Mean Corpuscular HGB Conc 33.3 g/dl (31.0-35.0); Mean Corpuscular Hemoglobin 30.2 pg (27.0-33.0); Mean Corpuscular Volume 90.5 fL (80.0-98.0); Mean Platelet Volume 9.7 fL (9.4-12.3); Monocytes Absolute Auto 0.9 X10*3/uL (0.1-1.2); Monocytes Percent Auto 6.4 % (2-11); Neutrophils Absolute Auto 9.8 x10*3/uL (2.0-8.3); Neutrophils Percent Auto 71.2 % (45-73); Platelet Count 227 X10*3/uL (160-400); Red Blood Count 3.58 X10*6/uL (4.20-5.50); Red Cell Distribution Width 12.9 % (11.0-16.0); White Blood Count 13.7 X10*3/uL (4.8-10.8)
[2023-06-19] MEDS: oxyCODONE HCl Immed Release 5 MG TABLET PO (05:50)
[2023-06-19 06:00] LABS: Anion Gap 11 (12-20); Blood Urea Nitrogen 15 mg/dL (9-16); Calcium 9.2 mg/dL (8.4-10.2); Carbon Dioxide 26 mmol/L (22-29); Chloride 106 mmol/L (96-108); Creatinine Clr Calc Pharmacy 71.9; Estimated Glomerular Filt Rate > 60; Glucose Fasting 127 mg/dL (60-99); Potassium 3.8 mmol/L (3.3-5.1); Sodium 139 mmol/L (135-145)
[2023-06-19] MEDS: Aspirin 325 MG TABLET PO ×2 (09:32→20:03)
[2023-06-19] MEDS: Docusate Sodium 100 MG CAPSULE PO ×2 (09:33→20:03)
[2023-06-19] MEDS: amLODIPine Besylate 5 MG TABLET PO (09:33)
[2023-06-19] MEDS: Celecoxib 200 MG CAPSULE PO ×2 (09:34→20:03)
[2023-06-19] MEDS: oxyCODONE HCl ER 10 MG TAB.ER.12H PO ×2 (09:36→20:04)
--- NOTE | 2023-06-19 09:49 | P.DS_ITS ---
DS: Providers Provider Date of Service: 06/20/23 Date of admission: 06/18/23 06:34 Primary care physician: Moses Haywood MD Consults: 06/18/23 07:24 Consult to Hospitalist Routine Comment: Consulting Provider: Hospitalist Reason For Exam: routine medical management DS: Diagnosis Discharge Diagnosis (1) Arthritis of left hip: Status: Acute DS: Summary Hospital Course Hospital Course: The patient underwent a successful left total hip arthroplasty, they were transferred to PACU and then to the floor to recover. During their stay, their vitals were stable, afebrile at 98.0. Labs were unremarkable, H/H 10.3/31.4. POD 1 they were started on Aspirin 325mg po bid for DVT ppx, they also received Physical Therapy services twice a day. Prior to discharge, their dressing was changed, incision clean dry and intact, new Aquacel dressing applied and the plan was to be discharged home with VNA services. Time Attestation Discharge coordination time: Less than 30 minutes Quality: Safe Use of Opioids Does Pt have an Active Cancer Diagnosis on the Problem List?: No Quality: Stroke Does the patient have a stroke diagnosis?: No Physical Exam Vital Signs: Vital Signs: Last Vital Signs Temp 97.6 F 06/19/23 08:00 Pulse 88 06/19/23 08:13 Resp 16 06/19/23 08:00 BP 147/70 H 06/19/23 08:13 Pulse Ox 97 06/19/23 08:13 O2 Del Method Room Air 06/19/23 08:00 O2 Flow Rate 2 06/18/23 12:00 BMI result Body Mass Index 35.0 Extrem: Other: Left hip dressing is c/d/i. Able to dorsi/plantar flex. Calf is supple and nontender. Sensation intact. Pedal pulse intact. DS: Data Data Completed and Pending Pending studies at discharge: Pending at discharge 06/18/23 08:41 Surgical [PTH] Routine Labs on day of discharge: Laboratory Results - last 24 hr 06/19/23 05:05 WBC 13.7 H RBC 3.58 L Hgb 10.8 L Hct 32.4 L MCV 90.5 MCH 30.2 MCHC 33.3 RDW 12.9 Plt Count 227 MPV 9.7 Immature Gran % (Auto) 0.4 Neut % (Auto) 71.2 Lymph % (Auto) 21.6 Cherry % (Auto) 6.4 Eos % (Auto) 0.1 Baso % (Auto) 0.3 Lymph # (Auto) 3.0 Cherry # (Auto) 0.9 Eos # (Auto) 0.0 Baso # (Auto) 0.0 Abs Immat Gran (auto) 0.06 H Absolute Neuts (auto) 9.8 H Absolute Nucleated RBC 0.000 Nucleated RBC % (auto) 0.0 Sodium 139 Potassium 3.8 Chloride 106 Carbon Dioxide 26 Anion Gap 11 L BUN 15 Creatinine 0.67 Estim Creat Clear Calc 71.9 Estimated GFR > 60 Fasting Glucose 127 H Calcium 9.2 Discharge Plan Discharge Anticipated Discharge Date/Time: 06/20/23 15:00 Patient Disposition: Home Health Service Discharge Diagnosis: s/p LTHA Referrals: Lisbeth Thurston PA-C [Physician [employer]] - 1 Week Lisha Ko PA-C [Physician [employer]] - 07/04/23 11:30 am Discharge Medications: New acetaminophen 325 mg Tablet 650 mg PO Q6H PRN (Reason: Pain, Mild (Pain Scale 1-3)) 30 Days Qty: 240 0RF aspirin 325 mg Tablet 325 mg PO Q12H 30 Days Qty: 60 0RF celecoxib 200 mg Capsule 200 mg PO BID 30 Days Qty: 60 0RF docusate sodium 100 mg Capsule 100 mg PO BID 30 Days Qty: 60 0RF oxycodone 5 mg Tablet 5 mg PO Q4H PRN (Reason: Pain, Moderate(Pain Scale 4-6)) 7 Days Qty: 42 0RF Rx Instructions: Partial Fill upon patient request. Continued (DME) walker Misc See Rx Instructions .ROUTE .MEDSUPPLY Qty: 1 0RF Rx Instructions: Folding front wheeled walker hydroxyzine HCl 10 mg Tablet 5 mg PO TID PRN (Reason: Itching) amlodipine 5 mg tablet 5 mg PO DAILY celecoxib 200 mg capsule 200 mg PO BID Discharge Orders: Discharge Order (Routine); Ordered 06/20/23 Ordered By: Lisbeth Thurston Diet: Advance to usual diet Activity on Discharge: Use cane or walker Stand Alone Forms: Patient Portal Discharge page Care Plan Goals: Restore fxn to left hip Health Concerns: None Plan of Treatment: Physical Therapy for total hip arthroplasty: no precautions, gait training, ROM, strength Limit stair climbing No showering, no tub bath-keep dressing clean, dry and intact No driving x6 weeks Continue Aspirin 325mg tabs twice a day x 4 weeks Follow up with [facility] Orthopedics in 2 weeks Assessment: Stable for d/c
--- NOTE | 2023-06-19 09:50 | P.F2F_ITS ---
Service Date Service Date: 06/19/23 Encounter Date of encounter: 06/19/23 Reasons for Services Signs and symptoms assessed: s/p LTHA. Pt. is considered homebound due to recent surgery. Unable to drive, poor balance, poor gait mechanics. Reason for physical therapy: home safety and mobility, therapeutic exercises, restore joint function, gait/transfer training, assess need for DME and ADL training Reason for occupational therapy: home safety and mobility, therapeutic exercises, restore joint function, gait/transfer training, assess need for DME and ADL training Homebound: Leaving the home is medically contraindicated at this time without the asist of a device and/or another person due th the listed conditions above and below. Reason homebound: unsteady gait / fall risk, leg weakness, pain with ambulation, pain with transfers, poor balance / fall risk and unable to drive Certification: Based on the above findings, I certify that this patient is confined to the home and needs intermittent penitentiary care, physical therapy and/or speech therapy, or continues to need occupational therapy. The patient is under my care, and I have initiated the establishment of the plan of care. The patient will be followed by a physician who will periodically review the plan of care. Time Spent With Patient Time: Total time managing care of this patient today ____ minutes.
--- NOTE | 2023-06-19 10:21 | MHC.CM.PN ---
Addendum entered by Joanna Arevalo 06/19/23 10:29: [employer]ILY [employer] PROVIDED TO THE PATIENT. sHE DECLINED A REFERRAL TO [facility]. Original Note: IMM 06/19/23 s/p LTHA. She lives with her S.O. She used a cane prior to admit. PT recommends home with services. Preferences obtained. A referral has been sent to [facility]. DP NA S.O. will transport home.
--- NOTE | 2023-06-19 12:57 | HO.POSTANES ---
Post Anesthesia Evaluation Post Anesthesia Evaluation Date of Service: 06/19/23 Vital Signs: Vital Signs Temp Pulse Resp BP Pulse Ox O2 Del Method 06/19/23 10:44 96 Room Air 06/19/23 08:13 88 147/70 H 97 06/19/23 08:00 97.6 F 88 16 147/70 H 97 Room Air 06/19/23 03:25 98.1 F 89 18 147/83 H 97 Room Air Anesthesia: General Mental Status: Awake Pain Control: Satisfactory Nausea/Vomiting: None Hydration: Adequate Anesthesia-Related Issues: No Anes. Related Issues
--- NOTE | 2023-06-19 14:27 | P.PNOP_ITS ---
Subjective Subjective Date of Service: 06/19/23 Interval history: POD 1 s/p LT JERRY no overnight events resting in bed Physical Exam Vital Signs: Vital Signs: Last Vital Signs Temp 97.6 F 06/19/23 08:00 Pulse 88 06/19/23 08:13 Resp 16 06/19/23 08:00 BP 147/70 H 06/19/23 08:13 Pulse Ox 96 06/19/23 13:28 O2 Del Method Room Air 06/19/23 10:44 O2 Flow Rate 2 06/18/23 12:00 BMI result Body Mass Index 35.0 Const: General: cooperative, healthy appearing and no acute distress Resp: Effort & Inspection: normal respiratory effort and able to speak in complete sentences Cardio: Rate: regular rate Peripheral pulses: Peripheral pulses 2+ throughout GI: Palpation (GI): Soft to palpation Skin: General skin exam: no rashes or lesions noted Extrem: Other: bandage clean dry and intact. [place] intact. No erythema or effusion. Calf supple nontender. Neurovascularly intact. Procedures Date of Service Date of Service: 06/19/23 Progress Note: A&P Assessment and plan (1) History of total left hip arthroplasty: Status: Acute Assessment and Plan: * Continue pain mgmnt * Begin Aspirin for dvt ppx * begin PT/ OT for LT JERRY * Dispo planning-Pending PT eval, pain mgmnt Need for continued inpatient stay: uncontrolled pain, need for therapy Time Spent With Patient Time: Total time managing care of this patient today ____ minutes. Quality Stroke Does the patient have a stroke diagnosis?: No VTE Prior VTE?: No VTE Risk Level:: Surgical - very high VTE Device Contraindication: N/A - Device Ordered VTE Drug Contraindication: N/A - Med Ordered
[2023-06-19] MEDS: 0.9 % Sodium Chloride Flush 3 ML SYRINGE IVFLUSH (20:04)
[2023-06-20 03:43] VITALS: BP 125/70; PULSE 90; RESP 18; TEMP 36.7; O2SAT 96
[2023-06-20 06:25] LABS: MANUAL DIFF FLAG NO
[2023-06-20 06:37] LABS: Basophils Percent Auto 0.2 % (0-2); Eosinophils Absolute Auto 0.1 X10*3/uL (0.0-0.4); Eosinophils Percent Auto 0.7 % (0-4); Hematocrit 31.4 % (37.0-47.0); Hemoglobin 10.3 g/dl (12.0-16.0); Imm Gran Abs Auto 0.11 X10*3/uL (0.00-0.03); Imm Gran Pct Auto 0.8 % (0.0-0.4); Lymphocytes Absolute Auto 2.5 X10*3/uL (1.2-4.9); Lymphocytes Percent Auto 18.4 % (20-40); Mean Corpuscular HGB Conc 32.8 g/dl (31.0-35.0); Mean Corpuscular Hemoglobin 29.8 pg (27.0-33.0); Mean Corpuscular Volume 90.8 fL (80.0-98.0); Mean Platelet Volume 9.8 fL (9.4-12.3); Monocytes Absolute Auto 0.9 X10*3/uL (0.1-1.2); Monocytes Percent Auto 6.9 % (2-11); Neutrophils Absolute Auto 9.9 x10*3/uL (2.0-8.3); Platelet Count 191 X10*3/uL (160-400); Red Blood Count 3.46 X10*6/uL (4.20-5.50); Red Cell Distribution Width 13.1 % (11.0-16.0); White Blood Count 13.6 X10*3/uL (4.8-10.8)
[2023-06-20 06:53] LABS: Anion Gap 11 (12-20); Blood Urea Nitrogen 12 mg/dL (9-16); Carbon Dioxide 28 mmol/L (22-29); Chloride 104 mmol/L (96-108); Creatinine Clr Calc Pharmacy 80.3; Estimated Glomerular Filt Rate > 60; Glucose Fasting 99 mg/dL (60-99); Potassium 3.9 mmol/L (3.3-5.1); Sodium 139 mmol/L (135-145)
[2023-06-20 07:08] VITALS: BP 122/67; PULSE 85; RESP 18; TEMP 36.6; O2SAT 96
[2023-06-20] MEDS: oxyCODONE HCl Immed Release 5 MG TABLET PO (07:15)
[2023-06-20] MEDS: Acetaminophen 325 MG TABLET 650 MG PO (07:15)
[2023-06-20 07:41] VITALS: BP 122/67; PULSE 85; O2SAT 96
[2023-06-20] MEDS: Aspirin 325 MG TABLET PO (08:35)
[2023-06-20] MEDS: oxyCODONE HCl ER 10 MG TAB.ER.12H PO (08:35)
[2023-06-20] MEDS: amLODIPine Besylate 5 MG TABLET PO (08:36)
[2023-06-20] MEDS: Docusate Sodium 100 MG CAPSULE PO (08:36)
[2023-06-20] MEDS: Celecoxib 200 MG CAPSULE PO (08:36)
[2023-06-20] MEDS: 0.9 % Sodium Chloride Flush 3 ML SYRINGE IVFLUSH (08:37)
[2023-06-20 10:00] VITALS: O2SAT 96
== END 2023-06-20 11:45 | disposition home health service (06) | DRG 470 ==
LOC: HO.SSSA 06:36 → HO.S3 09:42
PROVIDERS: Physician Assistant; Admitting Provider Orthopaedic Surgery; PCP Internal Medicine Pulmonary Disease; Visit Provider Orthopaedic Surgery
PROC: 0SRB049 Replacement of Left Hip Joint with Ceramic on Polyethylene Synthetic Substitute, Cemented, Open Approach (ICD-10-PCS; CPT 27130; principal; 2023-06-18 07:30)
DX: M16.12 Unilateral primary osteoarthritis, left hip (principal); Z23 Encounter for immunization; I10 Essential (primary) hypertension; Z79.899 Other long term (current) drug therapy
CPT/HCPCS: 36415; 72170; 80048; 85025; 86850; 86900; 86901; 87640; 87641; 88305; 88311; 90686; 97110; 97116; 97162; 97165; 97535; C1713; C1776; J0131; J0690; J1100; J1170; J2250; J2405; J3010; J3370

== ENCOUNTER → 2023-06-18 06:34 | Outpatient (BNV) | payer OTHER, SELFPAY | PROVIDERS: Admitting Provider Orthopaedic Surgery; PCP Internal Medicine Pulmonary Disease; Visit Provider Orthopaedic Surgery | DX: Z96.642 Presence of left artificial hip joint (principal) | CPT/HCPCS: 27130; 99024 ==

== ENCOUNTER → 2023-06-18 06:34 | Outpatient (BNV) | payer MEDICARE, SELFPAY | PROVIDERS: Admitting Provider Orthopaedic Surgery; PCP Internal Medicine Pulmonary Disease; Visit Provider Nurse Practitioner Acute Care | DX: M16.12 Unilateral primary osteoarthritis, left hip (principal); I10 Essential (primary) hypertension | CPT/HCPCS: 99222 ==

== ENCOUNTER 2023-07-04 11:17 | Outpatient (AMB) | payer OTHER, SELFPAY ==
--- NOTE | 2023-07-04 11:36 | A.OFFVIS_ITS ---
Intake Intake Visit Reasons: PO-LT JERRY 06/18/23 Intake Note: Rosibel agarwal 78 year old male presents today for a post operative left JERRY, 06/18/23 Patient reports she is doing well, states some soreness which is expected. She has finished at home therapy and would like an order for outpatient therapy. Allergies pantoprazole Allergy (Intermediate, Verified 07/04/23 11:44) Rash pravastatin Allergy (Intermediate, Verified 07/04/23 11:44) Muscle Pain HPI PO-LT JERRY 06/18/23 HPI Details 78-year-old female who returns to the [facility] today for post-op left JERRY, 06/18/[address] Peres. She states she has some soreness but is doing well overall. She completed home therapy and would like to have an order for outpatient therapy. She has no other concerns today. [facility] Medical History (Updated 06/21/23 @ 00:02 by Silke Vargas) Arthritis of left hip Eczema HTN (hypertension) Osteoarthritis Surgical History History of Hx of colonoscopy History of back surgery History of total right knee replacement (TKR) History of total left knee replacement (TKR) Family History (Updated 05/03/23 @ 14:16 by Zeina Ulrich MA) Mother Breast cancer Sister Dementia Leukemia Father Emphysema of lung Household Members: Significant Other [facility] Are you a primary care management associate to a significant other at home: No Do you presently have visiting nurse or other home services: No 75 years or older and lives alone: No Alcohol intake: current Alcohol intake frequency: holidays/special occasions only Patient Tobacco Use Status: Never used Tobacco service: No Current occupational status: retired Review of Systems Const All systems reviewed & are unremarkable except as noted in HPI and below Physical Exam Extrem Other: Left hip: Clean, dry and intact. No erythema or swelling. No pain with hip flexion or ROM. NVI. Assessment & Plan Assessment & Plan (1) History of total left hip arthroplasty: Code(s): Z96.642 - Presence of left artificial hip joint Plan [place] removed, steri strips applied. She will begin to transition to Outpatient PT to continue working on Gait training, ROM and strength. No driving for another 4 weeks. She will require ppx abx for dental procedures. She will f/u in 4 weeks, sooner if needed. Orders: Orders PT Evaluation and Treatment 07/04/23 Z96.642 - Presence of left artificial hip joint Medications: Changed From oxycodone Partial Fill upon patient request. 5 mg PO Q4H 7 days PRN 42 tabs 0RF Pain, Moderate(Pain Scale 4-6) To oxycodone Partial Fill upon patient request. 5 mg PO Q8H PRN 21 tabs 0RF Pain, Moderate(Pain Scale 4-6) 7 days Patient Instructions: Scribed for Lisha Ko PA-C, by Arnoldo Shelby medical dermatologist, on 07/04/2023 at 11:30 AM EST. ILisha PA-C, have personally reviewed and agree w ith the information entered by the scribe. Coding Level of Care Code Global (08734) Diagnoses History of total left hip arthroplasty Z96.642
== END 2023-07-04 12:52 | disposition home or self-care (01) ==
PROVIDERS: PCP Internal Medicine Pulmonary Disease; Visit Provider Physician Assistant
DX: Z96.642 Presence of left artificial hip joint (principal)
CPT/HCPCS: 99024

== ENCOUNTER → 2023-07-04 11:17 | Outpatient (BNVA) | payer OTHER, SELFPAY | PROVIDERS: PCP Internal Medicine Pulmonary Disease; Visit Provider Physician Assistant ==

== ENCOUNTER 2023-08-02 13:59 | Outpatient (AMB) | payer OTHER, SELFPAY ==
--- NOTE | 2023-08-02 14:05 | MHC.OFFVIS ---
Intake Intake Visit Reasons: PO-LT JERRY 06/18/23 Intake Note: The patient presents with complaints of mild intermittent discomfort in her left hip after undergoing left total hip replacement surgery on 06/18/2023. She continues going to physical therapy at [facility] in [facility]. She does walk with a cane when she is out of her home. She denies any fevers or chills. She has no longer taking narcotics for discomfort. Allergies pantoprazole Allergy (Intermediate, Verified 08/02/23 14:05) Rash pravastatin Allergy (Intermediate, Verified 08/02/23 14:05) Muscle Pain Medication List - Last Reconciled 08/03/23 by Jim Peres MD acetaminophen 650 mg (2 x 325 mg) PO Q6H PRN 30 days amlodipine 5 mg PO DAILY celecoxib 200 mg PO BID 30 days celecoxib 200 mg PO BID docusate sodium 100 mg PO BID 30 days hydroxyzine HCl 5 mg PO TID PRN walker Folding front wheeled walker [facility] Medical History Arthritis of left hip Eczema HTN (hypertension) Osteoarthritis Surgical History History of total left hip arthroplasty (06/18/23) History of Hx of colonoscopy History of back surgery History of total right knee replacement (TKR) History of total left knee replacement (TKR) Family History Mother Breast cancer Sister Dementia Leukemia Father Emphysema of lung Social History Household Members: Significant [facility] Are you a primary complex care nurse practitioner to a significant other at home: No Do you presently have visiting nurse or other home services: No 75 years or older and lives alone: No Alcohol intake: current Alcohol intake frequency: holidays/special occasions only Comment: all counts correct Patient Tobacco Use Status: Never used Tobacco service: No Current occupational status: retired Physical Exam Extrem Other: Left hip examination shows that the surgical incision is well healed, no erythema, minimal discomfort with range of motion Assessment & Plan Assessment & Plan (1) History of total left hip arthroplasty: Onset Date: 06/18/23 Code(s): Z96.642 - Presence of left artificial hip joint Plan Ms. Cormier continues to do very well after undergoing left total hip replacement surgery on 06/18/2023. She will continue going to formal physical therapy for now. She will gradually transition to a home exercise program. She does know to take antibiotics before any dental work. She will contact me prior to her follow-up appointment in 2 months should any questions or concerns arise. Feel free to call me at any time should questions regarding her orthopedic management arise. Medications: New amoxicillin Take four capsules (2,000 mg) one hour before any dental work 2,000 mg (4 x 500 mg) PO ONCE 20 caps 2RF Coding Level of Care Code Global (78047) Diagnoses History of total left hip arthroplasty Z96.642
== END 2023-08-02 14:41 | disposition home or self-care (01) ==
PROVIDERS: PCP Internal Medicine Pulmonary Disease; Visit Provider Orthopaedic Surgery
DX: Z96.642 Presence of left artificial hip joint (principal)
CPT/HCPCS: 99024

== ENCOUNTER → 2023-08-02 13:59 | Outpatient (BNVA) | payer OTHER, SELFPAY | PROVIDERS: PCP Internal Medicine Pulmonary Disease; Visit Provider Orthopaedic Surgery ==

== ENCOUNTER 2023-08-23 11:06 | Emergency (ER) | payer OTHER, SELFPAY ==
--- NOTE | ~2023-08-23 | CT_ITS ---
CT HEAD WITHOUT IV CONTRAST CT CERVICAL SPINE WITHOUT IV CONTRAST INDICATION: Fall with head strike. COMPARISON: None available. TECHNIQUE: Multidetector CT acquisitions of the head and cervical spine were obtained without IV contrast. Multiplanar reformats were acquired and utilized for image interpretation. This CT examination was performed using dose optimization techniques as appropriate, variously including the following: *Automated exposure control *Adjustment of mA and/or kV according to patient size (this includes techniques or standardized protocols for targeted exams where dose is matched to indication/reason for exam; i.e. 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 There is no intracranial hemorrhage, hydrocephalus, extra-axial surface collection, midline shift, or other herniation pattern. Guerrero to white matter differentiation is diffusely maintained without evidence of an evolved acute territorial infarct. The basilar cisterns are preserved. No significant soft tissue abnormality. No acute osseous abnormality. The paranasal sinuses and the mastoid air cells are well aerated. CERVICAL SPINE: No acute fractures and no acute subluxations. There is diffuse osteopenia. There is mild anterior subluxation of C6 on C7 and C7 on T1. Hypertrophic degenerative changes involving the atlantodental interval. There is advanced multilevel hypertrophic facet arthropathy. There is vacuum phenomenon associated with the severely degenerative left C2-C3 and C3-C4 facets. There is multilevel degenerative disc disease. There is no prevertebral soft tissue swelling. Atherosclerotic calcification involving the carotid bifurcations bilaterally. Imaged lung apices are clear. CT/CT cervical spine wo IV con IMPRESSION: - No acute intracranial abnormality. 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 - No acute osseous abnormality within the cervical spine. Cervical spondylosis.
--- NOTE | ~2023-08-23 | XR_ITS ---
EXAMINATION: XR HIP, LEFT CLINICAL INFORMATION: Pain fall COMPARISON: Pelvis radiograph from 06/18/2023 TECHNIQUE: Single view the pelvis 3 views of the left hip FINDINGS: Mildly displaced fracture involving the medial aspect of the left superior pubic ramus. Status post left hip arthroplasty, grossly intact. 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 Degenerative changes of the lumbosacral spine. Joint spaces and alignment are otherwise maintained. Phleboliths are noted. Soft tissues are unremarkable. XR/XR hip LT w PEL1V IMPRESSION: 1. Mildly displaced fracture involving the medial aspect of the left superior pubic ramus. 2. Status post left hip arthroplasty, grossly intact. 3. 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
--- NOTE | ~2023-08-23 | XR_ITS ---
EXAMINATION: XR ELBOW, LEFT CLINICAL INFORMATION: Pain COMPARISON: None available. TECHNIQUE: Four views of the left elbow. FINDINGS: No acute visible fracture or dislocation. Joint spaces and alignment are maintained. No large elbow joint effusion. Slight soft tissue prominence along the olecranon. XR/XR elbow LT min 3V IMPRESSION: 1. No acute visible fracture or dislocation. 2. Slight soft tissue prominence along the olecranon.
--- NOTE | 2023-08-23 11:08 | ED_ITS ---
HPI - General Adult General Chief complaint: Fall Stated complaint: L HIP PAIN S/P FALL LAST NIGHT,HIP REPL IN NOV Time Seen by Provider: 08/23/23 11:08 Source: patient, family (Patient's son) and EMS Mode of arrival: EMS Limitations: no limitations History of Present Illness HPI narrative: 78 year-old female with a history of hypertension and total left hip arthroplasty on 06/18/2023 arrives to the emergency department via EMS after a fall on the left hip the night of 08/22/2023. She states she was trying to plug in her phone last night when she lost her balance and fell on her left elbow and left hip. The patient reports that she was down for 15 minutes while her assisted her off the ground. The patient states she has left hip pain and left groin pain that worsens with ambulation. The patient endorses 9/10 pain. The patient denies fever, chills, night sweats, chest pain, palpitations, shortness of breath, dyspnea, lightheadedness, dizziness, changes in vision, loss of vision, double vision, abdominal pain, nausea, vomiting, changes in bowel movements, and changes in urination. Onset (ago): day(s) (1) Location: upper extremity (left elbow) and lower extremity (left hip) Severity scale (1-10): 2 (at rest) Pain Consistency: intermittent (worsens with ambulation) Relieving factors: immobilization and rest Exacerbating factors: movement Associated symptoms: denies other symptoms Treatments prior to arrival: NSAID (600 mg ibuprofen via EMS) Related Data Home Medications Medication Instructions Recorded Confirmed amlodipine 5 mg tablet 5 mg PO DAILY 05/03/23 08/03/23 celecoxib 200 mg capsule 200 mg PO BID 05/03/23 08/03/23 hydroxyzine HCl 10 mg tablet 5 mg PO TID PRN Itching 06/08/23 08/03/23 Previous Rx's Medication Instructions Recorded walker #1 ea 05/29/23 acetaminophen 325 mg tablet 650 mg (2 x 325 mg) PO Q6H PRN 06/19/23 Pain, Mild (Pain Scale 1-3) 30 days #240 tabs celecoxib 200 mg capsule 200 mg PO BID 30 days #60 caps 06/19/23 docusate sodium 100 mg capsule 100 mg PO BID 30 days #60 caps 11/07/23 amoxicillin 500 mg capsule 2,000 mg (4 x 500 mg) PO ONCE #20 08/03/23 caps Allergies Allergy/AdvReac Type Severity Reaction Status Date / Time pantoprazole Allergy Intermediate Rash Verified 08/02/23 14:05 pravastatin Allergy Intermediate Muscle Pain Verified 08/02/23 14:05 Review of Systems Constitutional: Constitutional: Reports no additional constitutional complaints, Denies chills, Denies fever(s) and Denies night sweats Eyes: Eyes: Reports no additional eye complaints, Denies blurry vision, Denies change in vision, Denies diplopia, Denies eye discharge, Denies loss of vision and Denies eye pain ENT: Denies dizziness Cardiovascular: Cardiovascular: Reports no additional cardiovascular complaints, Denies chest pain, Denies lightheadedness, Denies Loss of Consciousness and Denies dyspnea Respiratory: Respiratory: Reports no additional respiratory complaints and Denies dyspnea Gastrointestinal: Gastrointestinal: Reports no additional gastrointestinal complaints, Denies abdominal pain, Denies melena, Denies hematochezia, Denies change in bowel habits and Denies change in stool character Genitourinary: Genitourinary: Denies hematuria, Denies urinary frequency, Denies dysuria, Denies urinary incontinence, Denies urinary hesitancy and Denies urinary urgency Musculoskeletal: Musculoskeletal: Reports no additional musculoskeletal complaints, Denies numbness and Denies tingling Comments: left hip and left elbow pain Neurologic: Denies dizziness, Denies loss of vision, Denies numbness and Denies tingling Psychiatric: Psychiatric: Reports no additional psychiatric complaints Endocrine: Endocrine: Reports no additional endocrine complaints Hematologic/Lymphatic: Hematologic/Lymphatic: Reports no additional hematologic/lymphatic complaints Allergic/Immunologic: Allergic/Immunologic: Reports no additional allergic/immunologic complaints [facility] Past Medical History Attestation statement: The following information was validated with the patient. (patient's son validated all information) Source: old records reviewed, obtained from family (patient's son provided additional history and confirmed the history provided by the patient.) and [facility] notes reviewed Onset Date is defined in the Problem List Problems that require an onset date and time if occurred within 24 hrs of arrival to the ED Aortic Dissection and Rupture; Neurologic impairment; Cardiopulmonary Arrest; Endotracheal Intubation; Insertion or Replacement of Mechanical Circulatory Assist Device Medical History Arthritis of left hip Eczema HTN (hypertension) Osteoarthritis Surgical History History of total left hip arthroplasty (06/18/23) History of Hx of colonoscopy History of back surgery History of total right knee replacement (TKR) History of total left knee replacement (TKR) Family History Family History Mother Breast cancer Sister Dementia Leukemia Father Emphysema of lung Social History Social History Household Members: Significant Other Housing: Condominium Are you a primary animal caretaker to a significant other at home: No Do you presently have visiting nurse or other home services: No Alcohol intake: current Alcohol intake frequency: holidays/special occasions only Comment: all counts correct Patient Tobacco Use Status: Never used Tobacco Advance Directives: No Advance Directives Information Provided: Yes service: No Current occupational status: retired Physical Exam ED Vital Signs: Vital Signs - 24 hr 08/23/23 11:14 08/23/23 13:20 Temperature 98.3 F 98.3 F Pulse Rate 75 77 Respiratory Rate 18 16 Blood Pressure 153/82 H 146/71 H Pulse Oximetry 100 96 Oxygen Delivery Method Room Air Room Air BMI result Body Mass Index 31.1 Const General: cooperative, no acute distress, alert and awake Nutritional Appearance: well nourished Orientation/consciousness: patient oriented x3 Limitations: no limitations HENMT Head: Yes normal to inspection and Yes atraumatic Ears: hearing grossly normal bilaterally and external ears normal General nose exam: Normal external nose present, no nasal discharge noted and no epistaxis Face and sinus: Yes normal facial exam, No abrasion and No laceration Mouth: Normal oral and palatal mucosa present, no drooling and no muffled voice Eyes General: appearance normal, both eyes and all related structures Periorbital: periorbital findings normal Eyelids: Yes eyelids normal Conjunctivae: conjunctivae normal Pupils: Equal, round and reactive pupils present EOM: EOMs intact bilaterally Neck Neck: Yes normal visual inspection, Yes full ROM and Yes no lymphadenopathy Chest Chest palpation & inspection: normal inspection of the chest Resp Effort & Inspection: normal respiratory effort and able to speak in complete sentences GI Inspection: Yes normal to inspection General: Yes no CVA tenderness Back/Spine/Pelvis Back: no CVA tenderness Cervical Spine: normal cervical lordosis and cervical ROM normal Thoracic/Lumbar Spine: thoracic and lumbar spine normal to inspection and thoraco-lumbar ROM normal Pelvis: Other pelvic findings (pain on the left with lateral compression and AP compression) Coccyx: Other pelvic findings (pain on the left with lateral compression and AP compression) Neuro General: patient oriented x3 and moves all extremities Cranial nerves: Yes Equal, round and reactive pupils present Cognition (Neuro): normal cognition Motor exam (neuro): 5/5 motor strength present throughout Sensory Exam: Normal double simultaneous stimulation for sensation Coordination: [id number] test normal Extrem Other: pain with left hip ROM General: Yes normal to inspection and Yes capillary refill normal Psych Appearance: grossly normal Mental Status: mental status grossly normal Affect: normal affect Attitude: cooperative Thought process: Normal thought process present Thought content: Normal thought content present Insight: Good insight present (Psych) Medical Decision Making Medical Decision Making MDM Narrative: Patient is a 78 year old assigned female at with a history of HTN and left hip replacement presenting to the emergency department today with left hip and elbow pain after a fall. Patient's physical exam was as noted in the physical exam portion of this note. Patient's hip / pelvis x-ray showed a mildly displaced fracture involving the medial aspect of the left superior pubic ramus. Patient's left elbow x-ray showed no acute process. Patient's head and c-spine CTs were negative. I spoke to the orthopedist who recommended 50% weight bearing with a walker and follow up in the office. I explained my physical exam findings as well as all test results to the patient and the patient's son. I answered all questions asked by the patient and the patient's son. I stressed the importance of the patient taking her medication as prescribed. I stressed the importance of the patient following up with her primary care provider and an orthopedic provider. I stressed the importance of the patient returning to the emergency department immediately if her symptoms were to worsen or if she were to develop any dizziness, shortness of breath, difficulty breathing, chest pain, blurry vision, loss of vision, nausea, vomiting, abdominal pain, fever, chills, back pain, or any other complaints. Patient and the patient's son verbalized agreement and understanding with this treatment plan and discharge. Differential Diagnosis Differential Diagnoses: The differential diagnosis associated with the presentation includes Hip pain Elbow pain Hip injury Pelvic fracture Hip fracture Admission/Observation Consideration of admission/observation: Escalation of care including admission/observation considered Patient would have been admitted to the hospital had his work up had any findings where hospital admission was appropriate and his clinical presentation warranted hospital admission. Independent Interpretation I performed an independent interpretation of an: Plain X-Ray and CT Scan Interpretation: My interpretation is in agreement with the radiologist's impression of these imaging studies. EXAMINATION: XR ELBOW, LEFT CLINICAL INFORMATION: Pain COMPARISON: None available. TECHNIQUE: Four views of the left elbow. FINDINGS: No acute visible fracture or dislocation. Joint spaces and alignment are maintained. No large elbow joint effusion. Slight soft tissue prominence along the olecranon. XR/XR elbow LT min 3V IMPRESSION: 1. No acute visible fracture or dislocation. 2. Slight soft tissue prominence along the olecranon. Dictated By: Carin Moreno MD Signed By: Electronically signed by Carin Moreno MD 08/23/23 1336 EXAMINATION: XR HIP, LEFT CLINICAL INFORMATION: Pain fall COMPARISON: Pelvis radiograph from 06/18/2023 TECHNIQUE: Single view the pelvis 3 views of the left hip FINDINGS: Mildly displaced fracture involving the medial aspect of the left superior pubic ramus. Status post left hip arthroplasty, grossly intact. 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 Degenerative changes of the lumbosacral spine. Joint spaces and alignment are otherwise maintained. Phleboliths are noted. Soft tissues are unremarkable. XR/XR hip LT w PEL1V IMPRESSION: 1. Mildly displaced fracture involving the medial aspect of the left superior pubic ramus. 2. Status post left hip arthroplasty, grossly intact. 3. 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 Dictated By: Carin Moreno MD Signed By: Electronically signed by Carin Moreno MD 08/23/[address] HEAD WITHOUT IV CONTRAST CT CERVICAL SPINE WITHOUT IV CONTRAST INDICATION: Fall with head strike. COMPARISON: None available. TECHNIQUE: Multidetector CT acquisitions of the head and cervical spine were obtained without IV contrast. Multiplanar reformats were acquired and utilized for image interpretation. This CT examination was performed using dose optimization techniques as appropriate, variously including the following: *Automated exposure control *Adjustment of mA and/or kV according to patient size (this includes techniques or standardized protocols for targeted exams where dose is matched to indication/reason for exam; i.e. 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 There is no intracranial hemorrhage, hydrocephalus, extra-axial surface collection, midline shift, or other herniation pattern. Guerrero to white matter differentiation is diffusely maintained without evidence of an evolved acute territorial infarct. The basilar cisterns are preserved. No significant soft tissue abnormality. No acute osseous abnormality. The paranasal sinuses and the mastoid air cells are well aerated. CERVICAL SPINE: No acute fractures and no acute subluxations. There is diffuse osteopenia. There is mild anterior subluxation of C6 on C7 and C7 on T1. Hypertrophic degenerative changes involving the atlantodental interval. There is advanced multilevel hypertrophic facet arthropathy. There is vacuum phenomenon associated with the severely degenerative left C2-C3 and C3-C4 facets. There is multilevel degenerative disc disease. There is no prevertebral soft tissue swelling. Atherosclerotic calcification involving the carotid bifurcations bilaterally. Imaged lung apices are clear. CT/CT cervical spine wo IV con IMPRESSION: - No acute intracranial abnormality. 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 - No acute osseous abnormality within the cervical spine. Cervical spondylosis. Dictated By: Randolph Medina MD Signed By: Electronically signed by Randolph Medina MD 08/23/23 1313 Radiology Impression Discussion of test interpretation with radiology: I have reviewed the radiologist's reading. Independent Historian Clinical information obtained from an independent historian. History obtained from or confirmed by: EMS (EMS provided additional history and confirmed the history provided by the patient.) and Other (patient's son provided additional history and confirmed the history provided by the patient.) Critical Care Time Critical Care Time Critical Care Time: Yes Total Critical Care Time: 35 Attestation: I spent 35 minutes of Critical Care Time with this patient. This does not include time spent on separately reported billable procedures. Discharge Plan Discharge Clinical Impression: Fractured pelvis Patient Disposition: Home, Self-Care Instructions: Pelvic Fracture (ED) Additional Instructions: You are only to apply 50% weight to the LEFT side and use a walker when ambulating. Follow up with your primary care provider and your orthopedic provider. Return to the emergency department immediately if your symptoms worsen or if you develop any dizziness, shortness of breath, difficulty breathing, chest pain, blurry vision, loss of vision, nausea, vomiting, abdominal pain, fever, chills, back pain, or any other complaints. Prescriptions: No Action (DME) walker Misc See Rx Instructions .ROUTE .MEDSUPPLY Qty: 1 0RF Rx Instructions: Folding front wheeled walker hydroxyzine HCl 10 mg Tablet 5 mg PO TID PRN (Reason: Itching) acetaminophen 325 mg Tablet 650 mg PO Q6H PRN (Reason: Pain, Mild (Pain Scale 1-3)) 30 Days Qty: 240 0RF celecoxib 200 mg Capsule 200 mg PO BID 30 Days Qty: 60 0RF docusate sodium 100 mg Capsule 100 mg PO BID 30 Days Qty: 60 0RF amlodipine 5 mg tablet 5 mg PO DAILY celecoxib 200 mg capsule 200 mg PO BID amoxicillin 500 mg capsule 2,000 mg PO ONCE Qty: 20 2RF Rx Instructions: Take four capsules (2,000 mg) one hour before any dental work Referrals: [facility] Family Medicine [Provider Group] (Call to establish and follow up with a primary care provider. If you already have a primary care provider, please follow up with them.) [facility] Primary Care, [place] [Provider Group] (Call to establish and follow up with a primary care provider. If you already have a primary care provider, please follow up with them.) [facility] Primary Care,[facility] [Provider Group] (Call to establish and follow up with a primary care provider. If you already have a primary care provider, please follow up with them.) [facility] [Provider Group] (Follow up with your orthopedist.) Print Language: Kosovan
[2023-08-23 11:14] VITALS: BP 153/82; PULSE 75; RESP 18; TEMP 36.8; O2SAT 100; BMI 31.1
[2023-08-23 13:20] VITALS: BP 146/71; PULSE 77; RESP 16; TEMP 36.8; O2SAT 96
[2023-08-23 14:09] VITALS: BP 164/92; PULSE 79; RESP 16; O2SAT 96
--- NOTE | 2023-08-23 14:41 | PC.NURSE ---
ambulated to bathroom utilizing walker independently with strong, steady gait.
== END 2023-08-23 19:14 | disposition home or self-care (01) ==
PROVIDERS: Emergency Provider Emergency Medicine
DX: S32.592A Other specified fracture of left pubis, initial encounter for closed fracture (principal); W18.39XA Other fall on same level, initial encounter; Z96.642 Presence of left artificial hip joint; Y93.89 Activity, other specified; Y92.003 Bedroom of unspecified non-institutional (private) residence as the place of occurrence of the external cause; Y99.9 Unspecified external cause status
CPT/HCPCS: 70450; 72125; 73080; 73502; 99283; 99284

== ENCOUNTER 2023-09-20 08:37 | Outpatient (AMB) | payer OTHER, SELFPAY ==
--- NOTE | 2023-09-20 08:40 | A.OFFVIS_ITS ---
Intake Vital Signs 09/20/23 08:43 Height 5 ft 2 in Weight 170 lb BMI 31.1 Intake Visit Reasons: FC - left hip fx, DOI 08/22/23 Intake Note: Rosibel is a 78 year old female who presents today for a evaluation for her left hip fx, DOI 06/18/24. She states she was trying to plug in her phone last night when she lost her balance and fell on her left elbow and left hip. Patient reports she is doing well, however she states that her pelvis feels a bit sore. Her pain is more focused near her groin area per patient. Allergies pantoprazole Allergy (Intermediate, Verified 09/20/23 08:42) Rash pravastatin Allergy (Intermediate, Verified 09/20/23 08:42) Muscle Pain HPI FC - left hip fx, DOI 08/22/23 HPI Details 78-year-old female who presents in the o ffice today for an evaluation of left hip pain. The patient presented to the ED on 08/23/2023 via EMS status post a fall that occurred the night of 08/22/2023. The patient was instructed to remain 50% weight bearing with the assistance of a walker until she follows up with Orthopedics. While in the office the patient reports she was trying to plug her phone in on 08/22/2023 when she lost her balance and fell on her left elbow and left hip. She states she is doing well, however she states her pelvis feels a bit sore. She states the pain is in the groin area. Patient has a history of left hip arthroplasty, which was performed on 06/18/[address] Peres. [facility] Medical History Arthritis of left hip Eczema HTN (hypertension) Osteoarthritis Surgical History History of total left hip arthroplasty (06/18/23) History of Hx of colonoscopy History of back surgery History of total right knee replacement (TKR) History of total left knee replacement (TKR) Family History Mother Breast cancer Sister Dementia Leukemia Father Emphysema of lung Social History Household Members: Significant Other Housing: [facility] Are you a primary care management coordinator to a significant other at home: No Do you presently have visiting nurse or other home services: No 75 years or older and lives alone: No Alcohol intake: current Alcohol intake frequency: holidays/special occasions only Comment: all counts correct Patient Tobacco Use Status: Never used Tobacco service: No Current occupational status: retired Review of Systems Const All systems reviewed & are unremarkable except as noted in HPI and below Physical Exam Vital Signs: BMI result Body Mass Index 31.1 Const General: cooperative, healthy appearing and no acute distress Resp Effort & Inspection: normal respiratory effort and able to speak in complete sentences Cardio Rate: regular rate Peripheral pulses: Peripheral pulses 2+ throughout GI Palpation (GI): Soft to palpation Skin Lesions: no lesions Rashes: no rashes Extrem Other: Left hip pain with passive ROM in the groin. Able to perform flexion, extension with mild pain. NVI. Office Procedures Fracture Care Fracture Billing Code: Fracture Billing Code Assessment & Plan Assessment & Plan (1) History of total left hip arthroplasty: Onset Date: 06/18/23 Comment: Dr. Jim Peres Code(s): Z96.642 - Presence of left artificial hip joint (2) Fracture of left superior pubic ramus: Onset Date: ~08/22/23 Code(s): S32.512A - Fracture of superior rim of left pubis, initial encounter for closed fracture Qualifiers: Encounter type: initial encounter Fracture type: closed Qualified Code(s): S32.512A - Fracture of superior rim of left pubis, initial encounter for closed fracture (3) Fracture of left inferior pubic ramus: Onset Date: ~08/22/23 Code(s): S32.592A - Other specified fracture of left pubis, initial encounter for closed fracture Qualifiers: Encounter type: initial encounter Fracture type: closed Qualified Code(s): S32.592A - Other specified fracture of left pubis, initial encounter for closed fracture Plan Ms. Cormier is a 78-year-old female who presents in the office today for an evaluation of left hip pain. The patient presented to the ED on 08/23/2023 via EMS status post a fall that occurred the night of 08/22/2023. The patient was instructed to remain 50% weight bearing with the assistance of a walker until she follows up with Orthopedics. While in the office the patient reports she was trying to plug her phone in on 08/22/2023 when she lost her balance and fell on her left elbow and left hip. She states she is doing well, however she states her pelvis feels a bit sore. She states the pain is in the groin area. Patient has a history of left hip arthroplasty, which was performed on 06/18/[address] Peres. The patient will continue to toe touch weight bear with a walker. Follow up will be in 3 weeks with repeat x-rays, or sooner if needed. X-rays of the pelvis which were obtained while in the office today and were reviewed by me, Lisbeth Thurston PA-C, redemonstrated superior and inferior pubic rami fractures. X-rays of the left pelvis, obtained on 08/23/2023, revealed: 1. Mildly displaced fracture involving the medial aspect of the left superior pubic ramus. 2. Status post left hip arthroplasty, grossly intact. 3. 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 Orders: Orders XR hip LT w PEL1V Today M25.559 - Pain in unspecified hip Patient Instructions: Scribed by Palmira Yap medical office secretary, for Lisbeth Thurston PA-C on 09/20/2023 at 8:40 am, EST. Coding Level of Care Code Est Pt Level 4 (35160) Diagnoses History of total left hip arthroplasty Z96.642 Closed fracture of superior ramus of left pubis, initial encounter S32.512A Encounter type: initial encounter Fracture type: closed Closed fracture of left inferior pubic ramus, initial encounter S32.592A Encounter type: initial encounter Fracture type: closed CPT Codes Fracture Care - Fracture Billing Code: Fracture Billing Code ([id number])
[2023-09-20 08:43] VITALS: BMI 31.1
== END 2023-09-20 09:19 | disposition home or self-care (01) ==
PROVIDERS: Visit Provider Physician Assistant
DX: S32.512A Fracture of superior rim of left pubis, initial encounter for closed fracture (principal); S32.592A Other specified fracture of left pubis, initial encounter for closed fracture; Z96.642 Presence of left artificial hip joint
CPT/HCPCS: 99213

== ENCOUNTER 2023-09-20 08:37 | Outpatient (REF) | payer OTHER, SELFPAY ==
--- NOTE | ~2023-09-20 | XR_ITS ---
EXAMINATION: XR HIP, LEFT CLINICAL INFORMATION: Pain COMPARISON: Previous x-ray August 2023 TECHNIQUE: Two views of the left hip. One view of the lower pelvis FINDINGS: Fractures of the left superior and inferior pubic rami. Superior pubic rami fracture appears slightly more displaced than August 2023 exam. Left hip replacement with cerclage wire unchanged. Severe arthritis at the right hip joint. Soft tissues are unremarkable. XR/XR hip LT w PEL1V IMPRESSION: Increasing displacement of left superior pubic ramus fracture.
== END 2023-09-20 08:38 | disposition home or self-care (01) ==
LOC: HO.HOSX 08:37
PROVIDERS: Visit Provider Physician Assistant
DX: Z96.642 Presence of left artificial hip joint (principal)
CPT/HCPCS: 73502

== ENCOUNTER 2023-10-19 09:35 | Outpatient (REF) | payer OTHER, SELFPAY ==
--- NOTE | ~2023-10-19 | XR_ITS ---
EXAMINATION: XR PELVIS CLINICAL INFORMATION: Pain COMPARISON: 09/20/2023 TECHNIQUE: 09/20/2023 FINDINGS: No acute fracture or dislocation. Status post left total hip arthroplasty without evidence of hardware complication. Severe degenerative changes of the right hip joint visualized. Redemonstration of displaced left superior pubic ramus fracture. Nondisplaced inferior left pubic ramus fracture with surrounding calcification suggestive of interval healing. XR/XR pelvis 1-2V IMPRESSION: * Redemonstration of displaced left superior pubic ramus fracture. Nondisplaced inferior left pubic ramus fracture with surrounding calcification suggestive of interval healing. * No acute fracture or dislocation.
== END 2023-10-19 09:36 | disposition home or self-care (01) ==
LOC: HO.HOSX 09:35
PROVIDERS: Visit Provider Physician Assistant
DX: Z96.642 Presence of left artificial hip joint (principal)
CPT/HCPCS: 72170

== ENCOUNTER 2023-10-19 13:15 | Outpatient (AMB) | payer OTHER, SELFPAY ==
--- NOTE | 2023-10-19 13:47 | A.OFFVIS_ITS ---
Intake Intake Visit Reasons: OV-LT superior & inferior pubic Jesus FX Intake Note: Rosibel is a 78 year old female who presents today for a follow up for her left inferior pubic ramus fx, DOI 06/18/24. She states most of her pain is in her groin. She states that she has little trouble walking. No other concerns Allergies pantoprazole Allergy (Intermediate, Verified 10/19/23 13:48) Rash pravastatin Allergy (Intermediate, Verified 10/19/23 13:48) Muscle Pain HPI OV-LT superior & inferior pubic Jesus FX HPI Details 78-year-old female who [facility] for a follow up of a left superior and inferior pubic ramus fractures, which occurred on 08/22/2023 status post a fall. I last saw the patient in the office on 09/20/2023 at which time she was instructed to toe touch weight bear with a walker. While in the office today the patient reports pain in her groin. She states she is having a little trouble walking. She reports no other concerns. Patient has a history of left hip arthroplasty, which was performed on 06/18/[address] Peres. [facility] Medical History Arthritis of left hip Eczema HTN (hypertension) Osteoarthritis Surgical History History of total left hip arthroplasty (06/18/23) History of Hx of colonoscopy History of back surgery History of total right knee replacement (TKR) History of total left knee replacement (TKR) Family History Mother Breast cancer Sister Dementia Leukemia Father Emphysema of lung Social History Household Members: Significant Other Housing: Condominium Are you a primary long term care phlebotomist to a significant other at home: No Do you presently have visiting nurse or other home services: No 75 years or older and lives alone: No Alcohol intake: current Alcohol intake frequency: holidays/special occasions only Comment: all counts correct Patient Tobacco Use Status: Never used Tobacco service: No Current occupational status: retired Review of Systems Const All systems reviewed & are unremarkable except as noted in HPI and below Physical Exam Const General: cooperative, healthy appearing and no acute distress Resp Effort & Inspection: normal respiratory effort and able to speak in complete sentences Cardio Rate: regular rate Peripheral pulses: Peripheral pulses 2+ throughout GI Palpation (GI): Soft to palpation Skin Lesions: no lesions Rashes: no rashes Extrem Other: Left hip pain with passive ROM in the groin. Able to perform flexion, extension with mild pain. NVI. Assessment & Plan Assessment & Plan (1) History of total left hip arthroplasty: Onset Date: 06/18/23 Comment: Dr. Jim Peres Code(s): Z96.642 - Presence of left artificial hip joint (2) Fracture of left superior pubic ramus: Onset Date: ~08/22/23 Code(s): S32.512A - Fracture of superior rim of left pubis, initial encounter for closed fracture Qualifiers: Encounter type: initial encounter Fracture type: closed Qualified Code(s): S32.512A - Fracture of superior rim of left pubis, initial encounter for closed fracture (3) Fracture of left inferior pubic ramus: Onset Date: ~08/22/23 Code(s): S32.592A - Other specified fracture of left pubis, initial encounter for closed fracture Qualifiers: Encounter type: initial encounter Fracture type: closed Qualified Code(s): S32.592A - Other specified fracture of left pubis, initial encounter for closed fracture Plan Ms. Cormier is a 78-year-old female who presents in the office today for a follow up of a left superior and inferior pubic ramus fractures, which occurred on 08/22/2023 status post a fall. I last saw the patient in the office on 09/20/2023 at which time she was instructed to toe touch weight bear with a walker. While in the office today the patient reports pain in her groin. She states she is having a little trouble walking. She reports no other concerns. Patient has a history of left hip arthroplasty, which was performed on 06/18/[address] Peres. Patient is going to continue to weight bear as tolerated with the use of a cane. An order of physical therapy was placed while in the office today with instructions to work on glute, quad, and core strengthening, as well as gait training. Follow up will be in 6 weeks with repeat x-rays, or sooner if needed. X-rays of the pelvis which were obtained while in the office today and were reviewed by me, Lisbeth Thurston PA-C, revealed routine healing of a superior and inferior pubic ramus fracture. Orders: Orders PT Evaluation and Treatment Today S32.512A - Fracture of superior rim of left pubis, initial encounter for closed fracture, S32.592A - Other specified fracture of left pubis, initial encounter for closed fracture, Z96.642 - P resence of left artificial hip joint XR pelvis 1-2V Today M25.559 - Pain in unspecified hip Patient Instructions: Scribed by Palmira Yap, medical radiation dosimetrist, for Lisbeth Thurston PA-C on 10/19/2023 at 1:18 pm, EST. Coding Level of Care Code Global (98350) Diagnoses History of total left hip arthroplasty Z96.642 Closed fracture of superior ramus of left pubis, initial encounter S32.512A Encounter type: initial encounter Fracture type: closed Closed fracture of left inferior pubic ramus, initial encounter S32.592A Encounter type: initial encounter Fracture type: closed
== END 2023-10-19 14:03 | disposition home or self-care (01) ==
PROVIDERS: Visit Provider Physician Assistant
DX: S32.512A Fracture of superior rim of left pubis, initial encounter for closed fracture (principal); S32.592A Other specified fracture of left pubis, initial encounter for closed fracture; Z96.642 Presence of left artificial hip joint
CPT/HCPCS: 99213

== ENCOUNTER 2023-10-25 09:02 | Outpatient (AMB) | payer OTHER, SELFPAY ==
[2023-10-25 09:06] VITALS: BMI 26.6
--- NOTE | 2023-10-25 09:06 | MHC.OFFVIS ---
Intake Vital Signs 10/25/23 09:06 Height 5 ft 7 in Weight 170 lb BMI 26.6 Intake Visit Reasons: PO-LT JERRY 06/18/23 , Arthritis of right hip Intake Note: Rosibel is a 78 year old female who presents for a post operative appointment s/p Left JERRY on 06/18/2023 Patient reports she is doing great. She has been doing home exercises and will start physical therapy next week. She state that she is experiencing intermittent pain in her right hip. Most of the pain is in her right groin. She has been taking Tylenol which gives her mild relief. She would also like another prescription for Celebrex. She wishes hold off on right total hip replacement surgery for as long as possible. Allergies pantoprazole Allergy (Intermediate, Verified 10/25/23 09:13) Rash pravastatin Allergy (Intermediate, Verified 10/25/23 09:13) Muscle Pain Medication List - Last Reconciled 10/25/23 by Jim Peres MD acetaminophen 650 mg (2 x 325 mg) PO Q6H PRN 30 days amlodipine 5 mg PO DAILY amoxicillin 2,000 mg (4 x 500 mg) PO ONCE celecoxib 200 mg PO BID 30 days celecoxib (Celebrex) 200 mg PO DAILY PRN celecoxib 200 mg PO BID docusate sodium 100 mg PO BID 30 days hydroxyzine HCl 5 mg PO TID PRN walker Folding front wheeled walker [facility] Medical History Arthritis of left hip Eczema HTN (hypertension) Osteoarthritis Surgical History History of total left hip arthroplasty (06/18/23) History of Hx of colonoscopy History of back surgery History of total right knee replacement (TKR) History of total left knee replacement (TKR) Family History Mother Breast cancer Sister Dementia Leukemia Father Emphysema of lung Social History Household Members: Significant Other Housing: Condominium Are you a primary primary care sales representative to a significant other at home: No Do you presently have visiting nurse or other home services: No 75 years or older and lives alone: No Alcohol intake: current Alcohol intake frequency: holidays/special occasions only Comment: all counts correct Patient Tobacco Use Status: Never used Tobacco service: No Current occupational status: retired Physical Exam Vital Signs: BMI result Body Mass Index 26.6 Const Other: Well-nourished well-developed very friendly female awake alert and oriented x3 in no acute distress Extrem Other: Bilateral lower extremity examination shows good capillary refill, no skin lesions noted, normal sensation light touch Right hip examination shows decreased range of motion when compared to her left hip, pain with range of motion, no tenderness over her bursa Left hip examination shows that the surgical incision is well healed, no erythema, minimal discomfort with range of motion, no tenderness over her bursa Results Reviewed Results Reviewed: X-rays of the patient's right hip taken previously show severe joint space narrowing, subchondral sclerosis, no acute bony abnormalities Assessment & Plan Assessment & Plan (1) Arthritis of right hip: Code(s): M16.11 - Unilateral primary osteoarthritis, right hip Plan Ms. Cormier continues to do very well after undergoing left total hip replacement surgery on 06/18/2023. She will continue with her physical therapy exercises. She does know to take antibiotics before any dental work. The patient does have right hip pain due to degenerative joint disease. At this point her right hip pain is tolerable to her. She wishes to hold off on right total hip replacement surgery for as long as possible. I agree with this plan. The patient will contact me prior to her follow-up appointment this summer should her symptoms worsen in any way. Feel free to call me at any time should questions regarding her orthopedic management arise. I spent 22 minutes in reviewing the patient's records and imaging studies, seeing the patient and documenting in the medical record. Medications: New celecoxib (Celebrex) 200 mg PO DAILY PRN 30 caps 3RF pain Coding Level of Care Code Est Pt Level 2 (64446) Diagnoses Arthritis of right hip M16.11
== END 2023-10-25 09:36 | disposition home or self-care (01) ==
PROVIDERS: PCP Internal Medicine Pulmonary Disease; Visit Provider Orthopaedic Surgery
DX: M16.11 Unilateral primary osteoarthritis, right hip (principal); Z96.642 Presence of left artificial hip joint
CPT/HCPCS: 99213

== ENCOUNTER → 2023-10-25 09:02 | Outpatient (BNVA) | payer OTHER, SELFPAY | PROVIDERS: PCP Internal Medicine Pulmonary Disease; Visit Provider Orthopaedic Surgery ==

== ENCOUNTER 2023-12-07 08:48 | Outpatient (REF) | payer MEDICARE, SELFPAY ==
--- NOTE | ~2023-12-07 | XR_ITS ---
EXAMINATION: XR PELVIS CLINICAL INFORMATION: Pain in the hip. COMPARISON: Prior x-ray of the pelvis October 2023. TECHNIQUE: AP view of the pelvis. FINDINGS: Left total hip arthroplasty is noted with the components in the usual position. Cerclage wires noted in the subtrochanteric region, unchanged. No fracture line identified there. There is a mildly displaced left superior rami fracture redemonstrated with minimal callus formation. There is a fracture of the left inferior ramus with callus formation, unchanged. There is severe osteoarthritis of the right hip. 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 The partially visualized pelvis is otherwise unremarkable. XR/XR pelvis 1-2V IMPRESSION: 1. Left total hip arthroplasty without complication by x-ray. 2. Left superior and inferior rami fractures unchanged. 3. Severe osteoarthritis of the right hip.
== END 2023-12-07 08:49 | disposition home or self-care (01) ==
LOC: HO.HOSX 08:48
PROVIDERS: Visit Provider Physician Assistant
DX: S32.512D Fracture of superior rim of left pubis, subsequent encounter for fracture with routine healing (principal); S32.592D Other specified fracture of left pubis, subsequent encounter for fracture with routine healing; Z96.642 Presence of left artificial hip joint
CPT/HCPCS: 72170

== ENCOUNTER 2023-12-07 09:35 | Outpatient (AMB) | payer OTHER, SELFPAY ==
--- NOTE | 2023-12-07 09:59 | A.OFFVIS_ITS ---
Vital Signs 12/07/23 10:03 Height 5 ft 7 in Weight 170 lb BMI 26.6 Intake Visit Reasons: OV-LT superior & inferior pubic Jesus FX-xray Intake Note: Rosibel is a 78 year old female who presents today for a follow up for her left inferior pubic ramus fx, DOI 06/18/24. She states having shock waves behind her legs for about a couple weeks. Patient reports her hip feels better, and she has been doing her at home exercises which help a little bit. Allergies pantoprazole Allergy (Intermediate, Verified 12/07/23 10:02) Rash pravastatin Allergy (Intermediate, Verified 12/07/23 10:02) Muscle Pain HPI HPI OV-LT superior & inferior pubic Jesus FX-xray: Details: 78-year-old female who presents in the office today for a follow up of a left superior and inferior pubic ramus fractures, which occurred on 08/22/2023 status post a fall. I last saw the patient in the office on 10/19/2023 when she was to continue to weight bear as tolerated with the use of a cane. A referral to PT was made with instructions to work on glute, quad, and core strengthening, as well as gait training. While in the office today the patient reports having ?shock waves? behind her bilateral lower extremities for a couple of weeks. She reports having pain radiating from her lower back down her buttocks to the entire left lower extremity. Reports a history of multiple back fractures. Reports her left hip feels better and she has been doing home exercises which have helped a small amount. [facility] Medical History Arthritis of left hip Eczema HTN (hypertension) Osteoarthritis Surgical History History of total left hip arthroplasty (06/18/23) History of Hx of colonoscopy History of back surgery History of total right knee replacement (TKR) History of total left knee replacement (TKR) Family History Mother Breast cancer Sister Dementia Leukemia Father Emphysema of lung Social History Household Members: Significant Other Housing: Condominium Are you a primary urgent care to a significant other at home: No Do you presently have visiting nurse or other home services: No 75 years or older and lives alone: No Alcohol intake: current Alcohol intake frequency: holidays/special occasions only Comment: all counts correct Patient Tobacco Use Status: Never used Tobacco service: No Current occupational status: retired Review of Systems Const All systems reviewed & are unremarkable except as noted in HPI and below Physical Exam Vital Signs: BMI result Body Mass Index 26.6 Const General: cooperative, healthy appearing and no acute distress Resp Effort & Inspection: normal respiratory effort and able to speak in complete sentences Cardio Rate: regular rate Peripheral pulses: Peripheral pulses 2+ throughout GI Palpation (GI): Soft to palpation Skin Lesions: no lesions Rashes: no rashes Extrem Other: Left hip pain with passive ROM in the groin. Able to perform flexion, extension with mild pain. NVI. Assessment & Plan Assessment & Plan (1) History of total left hip arthroplasty: Onset Date: 06/18/23 Comment: Dr. Jim Peres Code(s): Z96.642 - Presence of left artificial hip joint Category: Surgical (2) Fracture of left superior pubic ramus: Onset Date: ~08/22/23 Code(s): S32.512A - Fracture of superior rim of left pubis, initial encounter for closed fracture Category: Medical Qualifiers: Encounter type: initial encounter Fracture type: closed Qualified Code(s): S32.512A - Fracture of superior rim of left pubis, initial encounter for closed fracture (3) Fracture of left inferior pubic ramus: Onset Date: ~08/22/23 Code(s): S32.592A - Other specified fracture of left pubis, initial encounter for closed fracture Category: Medical Qualifiers: Encounter type: initial encounter Fracture type: closed Qualified Code(s): S32.592A - Other specified fracture of left pubis, initial encounter for closed fracture Plan Ms. Cormier is a 78-year-old female who presents in the office today for a follow up of a left superior and inferior pubic ramus fractures, which occurred on 08/22/2023 status post a fall. I last saw the patient in the office on 10/19/2023 when she was to continue to weight bear as tolerated with the use of a cane. A referral to PT was made with instructions to work on glute, quad, and core strengthening, as well as gait training. While in the office today the patient reports having ?shock waves? behind her bi lateral lower extremities for a couple of weeks. Reports her left hip feels better and she has been doing home exercises which have helped a small amount. Patient will be referred to Physiatry for further evaluation and treatment of her pain radiation from her back down her left leg. As for the left hip she will continue to return to normal activities. Follow up will be PRN, or sooner if needed. Patient will also follow up at her regularly scheduled follow appointment for her left total hip arthroplasty. X-rays of the left hip which were obtained while in the office today and were reviewed by me, Lisbeth Thurston PA-C, revealed routine healing of a pubic ramus fracture. Orders: Orders XR pelvis 1-2V Today M25.559 - Pain in unspecified hip Patient Instructions: Scribed by Palmira Yap medical laboratory technical officer, for Lisbeth Thurston PA-C on 12/07/2023 at 10:09 am, EST. Coding Level of Care Code Global (91125) Diagnoses History of total left hip arthroplasty Z96.642 Closed fracture of superior ramus of left pubis, initial encounter S32.512A Encounter type: initial encounter Fracture type: closed Closed fracture of left inferior pubic ramus, initial encounter S32.592A Encounter type: initial encounter Fracture type: closed
[2023-12-07 10:03] VITALS: BMI 26.6
== END 2023-12-07 10:27 | disposition home or self-care (01) ==
PROVIDERS: Visit Provider Physician Assistant
DX: S32.512A Fracture of superior rim of left pubis, initial encounter for closed fracture (principal); Z96.642 Presence of left artificial hip joint; S32.592A Other specified fracture of left pubis, initial encounter for closed fracture
CPT/HCPCS: 99213

== ENCOUNTER 2024-01-09 12:24 | Outpatient (REF) | payer MEDICARE, SELFPAY | END 2024-01-09 12:25 | disposition home or self-care (01) | LOC: HO.HOSX 12:24 | PROVIDERS: Visit Provider Physical Medicine & Rehabilitation | DX: Z13.89 Encounter for screening for other disorder (principal) ==

== ENCOUNTER 2024-01-24 11:10 | Outpatient (AMB) | payer OTHER, SELFPAY ==
--- NOTE | 2024-01-24 11:15 | MHC.OFFVIS ---
Intake Visit Reasons: OV-LT JERRY 06/18/23 DR-Follow up Intake Note: Rosibel is a 78 year old female who presents to the office today for LT JERRY 06/18/23 follow up. Pt states her hip is doing well. She continues with her home exercise program. She does have intermittent pain in her right hip. She wishes to hold off on right total hip replacement surgery for as long as possible. Allergies pantoprazole Allergy (Intermediate, Verified 01/24/24 11:15) Rash pravastatin Allergy (Intermediate, Verified 01/24/24 11:15) Muscle Pain Medication List - Last Reconciled 01/24/24 by Jim Peres MD acetaminophen 650 mg (2 x 325 mg) PO Q6H PRN 30 days amlodipine 5 mg PO DAILY amoxicillin 2,000 mg (4 x 500 mg) PO ONCE celecoxib (Celebrex) 200 mg PO DAILY PRN docusate sodium 100 mg PO BID 30 days hydroxyzine HCl 5 mg PO TID PRN walker Folding front wheeled walker [facility] Medical History Arthritis of left hip Eczema HTN (hypertension) Osteoarthritis Surgical History History of total left hip arthroplasty (06/18/23) History of Hx of colonoscopy History of back surgery History of total right knee replacement (TKR) History of total left knee replacement (TKR) Family History Mother Breast cancer Sister Dementia Leukemia Father Emphysema of lung Social History Household Members: Significant Other [facility] Are you a primary long term care pharmacist to a significant other at home: No Do you presently have visiting nurse or other home services: No 75 years or older and lives alone: No Alcohol intake: current Alcohol intake frequency: holidays/special occasions only Comment: all counts correct Patient Tobacco Use Status: Never used Tobacco service: No Current occupational status: retired Physical Exam Const Other: Well-nourished well-developed very friendly female awake alert and oriented x3 in no acute distress Extrem Other: Bilateral lower extremity examination shows good capillary refill, no skin lesions noted, normal sensation light touch Left hip examination shows that the surgical incision is well healed, no erythema, minimal discomfort with range of motion, no tenderness over her bursa Assessment & Plan Assessment & Plan (1) Left hip pain: Code(s): M25.552 - Pain in left hip Category: Medical Plan Ms. Cormier continues to do well after undergoing left total hip replacement surgery on 06/18/2023. She will continue with her home exercise program. She does know to take antibiotics before any dental work. I did refill her prescription for Celebrex. She will contact me prior to her follow-up appointment in 3 months questions concerns arise. Feel free to call me at any time should questions regarding her orthopedic management arise. I spent 20 minutes in reviewing the patient's records and imaging studies, seeing the patient and documenting in the medical record. Medications: Refilled celecoxib (Celebrex) 200 mg PO DAILY PRN 30 caps 3RF pain Coding Level of Care Code Est Pt Level 3 (69709) Diagnoses Left hip pain M25.552
== END 2024-01-24 11:47 | disposition home or self-care (01) ==
PROVIDERS: PCP Internal Medicine Pulmonary Disease; Visit Provider Orthopaedic Surgery
DX: M25.552 Pain in left hip (principal); Z96.642 Presence of left artificial hip joint
CPT/HCPCS: 99214

== ENCOUNTER → 2024-01-24 11:10 | Outpatient (BNVA) | payer OTHER, SELFPAY | PROVIDERS: PCP Internal Medicine Pulmonary Disease; Visit Provider Orthopaedic Surgery ==

== ENCOUNTER 2024-02-07 09:13 | Outpatient (AMB) | payer OTHER, SELFPAY ==
--- NOTE | 2024-02-07 09:18 | MHC.OFFVIS ---
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 She was referred by Lisbeth Thurston for pain radiation from her back down her left and left leg. Patient reports when she is sitting for a prolonged period of time and stands for gait initiation she gets a sharp shooting pain down her left and right leg that stops her in place. She expresses this began 3 to 4 months ago. She had a fall in August of 2023 which resulted in a fracture pelvis. She also says she has 4 fractured vertebrae. She has tried PT but resulted in no pain relief. Hx of cortisone injections in her back and her hips. Hx of Left JERRY in June of 2023 Hx of left inferior pubic ramus fx, DOI 08/18/23 Allergies pantoprazole Allergy (Intermediate, Verified 02/07/24 09:25) Rash pravastatin Allergy (Intermediate, Verified 02/07/24 09:25) Muscle Pain Medication List - Last Reconciled 02/07/24 by Zuly Mullins MD acetaminophen 650 mg (2 x 325 mg) PO Q6H PRN 30 days amlodipine 5 mg PO DAILY celecoxib (Celebrex) 200 mg PO DAILY PRN docusate sodium 100 mg PO BID 30 days hydroxyzine HCl 5 mg PO TID PRN walker Folding front wheeled walker HPI Comments Details: LT JERRY 06/18/23, doing well in that aspect, has followed with Dr. Peres recently. Fall mechanical last August, sustaining displaced left superior and inferior pubic ramus fractures, 08/22/2023. Been following Lisbeth Thurston for that. Non surgical, advised that it would eventually heal. Over the years, she's had vertebral fractures, from a bad fall at age 31s and another fall 6 years ago. Remembers L4?L5? levels, no intervention/kyphoplasty. Rested, eventually healed. Also had disc herniation in . Always had back pain that would be across the waist line. New-loreta back pain in the sacrum area, just in the middle, non radicular. No pain higher than that. No numbness No new weakness, but does need cane for prolonged walking. Denies lumbar pain unless she stands for a long time, gets tired . Treatment done so far: finished PT 2 months at least, ended November Celebrex [facility] Medical History (Updated 02/07/24 @ 10:02 by Zuly Mullins MD) History of vertebral fracture Arthritis of left hip Eczema HTN (hypertension) Osteoarthritis Surgical History History of total left hip arthroplasty (06/18/23) History of Hx of colonoscopy History of back surgery History of total right knee replacement (TKR) History of total left knee replacement (TKR) Family History Mother Breast cancer Sister Dementia Leukemia Father Emphysema of lung Social History Household Members: Significant Other [facility] Are you a primary intensive care unit nurse to a significant other at home: No Do you presently have visiting nurse or other home services: No 75 years or older and lives alone: No Alcohol intake: current Alcohol intake frequency: holidays/special occasions only Comment: all counts correct Patient Tobacco Use Status: Never used Tobacco service: No Current occupational status: retired Review of Systems Const All systems reviewed & are unremarkable except as noted in HPI and below Physical Exam Vital Signs: BMI result Body Mass Index 30.2 Constitutional: Patient appears to be in no acute distress, well nourished and well developed. Patient was appropriately conversant and oriented. Good historian. MSK: No specific abnormalities found on inspection of the spine and all extremities. No pain with palpation over the lumbar area. No tenderness on spinous processes or facets. No tenderness on SI joint or GT. Patient indicated that tenderness is over the sacrum. Lumbar ROM was full. Straight-leg raising test deferred but negative slump test. FABERE test deferred. Strength is 5/5 in all muscle groups tested while seated. No increased tone noted. Neurological: No focal weakness. Reflexes symmetric. Salazar?s negative bilaterally. Babinski was down going bilaterally. Clonus was negative. Gait is antalgic without loss of balance, using cane. Results Reviewed Results Reviewed: I independently reviewed the results of the following: Pelvis x-rays from August to November reviewed, displaced left pubic rami fractures. Images shown to patient. Lumbar x-rays done in the office today shows wedging at L1, minimal listhesis L4-5, anterior endplate spurs. Ordering Physician: Lisbeth Thurston PA-C Date of Service: 12/07/23 Procedure(s): XR pelvis 1-2V Accession Number(s): [id number] cc: Lisbeth Thurston PA-C~ EXAMINATION: XR PELVIS CLINICAL INFORMATION: Pain in the hip. COMPARISON: Prior x-ray of the pelvis October 2023. TECHNIQUE: AP view of the pelvis. FINDINGS: Left total hip arthroplasty is noted with the components in the usual position. Cerclage wires noted in the subtrochanteric region, unchanged. No fracture line identified there. There is a mildly displaced left superior rami fracture redemonstrated with minimal callus formation. There is a fracture of the left inferior ramus with callus formation, unchanged. There is severe osteoarthritis of the right hip. 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 The partially visualized pelvis is otherwise unremarkable. XR/XR pelvis 1-2V IMPRESSION: 1. Left total hip arthroplasty without complication by x-ray. 2. Left superior and inferior rami fractures unchanged. 3. Severe osteoarthritis of the right hip. I reviewed records from the following: Reviewed notes from Dr. Oviedo and Lisbeth Thurston, spoke to them about patient's history Assessment & Plan Assessment & Plan (1) Fracture of left inferior pubic ramus: Onset Date: ~08/22/23 Code(s): S32.592A - Other specified fracture of left pubis, initial encounter for closed fracture Category: Medical Qualifiers: Encounter type: initial encounter Fracture type: closed Qualified Code(s): S32.592A - Other specified fracture of left pubis, initial encounter for closed fracture (2) Fracture of left superior pubic ramus: Onset Date: ~08/22/23 Code(s): S32.512A - Fracture of superior rim of left pubis, initial encounter for closed fracture Category: Medical Qualifiers: Encounter type: initial encounter Fracture type: closed Qualified Code(s): S32.512A - Fracture of superior rim of left pubis, initial encounter for closed fracture (3) History of total left hip arthroplasty: Onset Date: 06/18/23 Comment: Dr. Jim Peres Code(s): Z96.642 - Presence of left artificial hip joint Category: Surgical (4) History of vertebral fracture: Code(s): Z87.81 - Personal history of (healed) traumatic fracture Category: Medical Plan Her main complaint is pelvic pain/sacral pain, nonradicular, since the fall. Denies any lumbar pain. No tenderness on spinous processes on exam. Suspect pain is still from the pubic rami fractures. Lumbar x-rays done today did show signs of wedge L1 which could be chronic. Await final reading, if there is any suspicion that this is acute, then we will need an MRI to further investigate. Again she has no tenderness in that level and no complaints of lumbar pain. Patient understands. Discussed that she needs to rest the fracture to heal, do not push through pain, take Tylenol if she has pain, do not scream. This will heal but may take time. Patient reassured. Discussed red flags to watch out for. Patient to call if any red flags. Assessment and plan discussed with patient, and patient was agreeable. All questions were answered thoroughly. Follow up in 3 months. Zuly Mullins MD, JUAN Board Certified, [place] Board of [employer] Medicine and Rehabilitation (ABPMR) Board Certified, [place] Board of Electrodiagnostic Medicine (ABEM) Orders: Orders XR lumbar spine 2-3V Today M54.9 - Dorsalgia, unspecified Coding Level of Care Code New Pt Level 4 (56264) Diagnoses Closed fracture of left inferior pubic ramus, initial encounter S32.592A Encounter type: initial encounter Fracture type: closed Closed fracture of superior ramus of left pubis, initial encounter S32.512A Encounter type: initial encounter Fracture type: closed History of total left hip arthroplasty Z96.642 History of vertebral fracture Z87.81
[2024-02-07 09:23] VITALS: BMI 30.2
== END 2024-02-07 10:03 | disposition home or self-care (01) ==
LOC: HO.HOS 09:13
PROVIDERS: PCP Internal Medicine Pulmonary Disease; Visit Provider Physical Medicine & Rehabilitation
DX: S32.592A Other specified fracture of left pubis, initial encounter for closed fracture (principal); S32.512A Fracture of superior rim of left pubis, initial encounter for closed fracture; Z96.642 Presence of left artificial hip joint; Z87.81 Personal history of (healed) traumatic fracture
CPT/HCPCS: 99203

== ENCOUNTER 2024-02-07 10:04 | Outpatient (REF) | payer OTHER, SELFPAY ==
--- NOTE | ~2024-02-07 | XR_ITS ---
EXAMINATION: XR LUMBOSACRAL SPINE CLINICAL INFORMATION: Dorsalgia COMPARISON: None available. TECHNIQUE: Three views of the lumbosacral spine. FINDINGS: Bones are osteopenic. Mild leftward curvature of the spine. There is severe compression deformity of L1 vertebral body. This of indeterminate age. Grade 1 anterolisthesis of L4 on L5. Multilevel disc degenerative changes, with disc height loss, endplate osteophytes in the visualized lower thoracic and the lumbar spine. Bilateral SI joint arthritis. Left hip arthroplasty is partially imaged. Prominent vascular calcification. Nonobstructive bowel gas pattern. Study is assigned for dictation on February 22, 2024 XR/XR lumbar spine 2-3V IMPRESSION: Severe compression deformity/fracture of the L1 vertebral body. This of indeterminate age. Clinically correlate, correlate with prior imaging. Further evaluation with MRI as clinically indicated. Grade 1 anterolisthesis of L4 on L5. Multilevel moderate spondylosis in the visualized spine. The report will be called to the ordering clinician by a [facility] Physician Laser/Electro Optics Technician.
== END 2024-02-07 10:05 | disposition home or self-care (01) ==
LOC: HO.HOSX 10:04
PROVIDERS: Visit Provider Physical Medicine & Rehabilitation
DX: M54.50 Low back pain, unspecified (principal); M48.56XA Collapsed vertebra, not elsewhere classified, lumbar region, initial encounter for fracture; M46.1 Sacroiliitis, not elsewhere classified; M47.896 Other spondylosis, lumbar region; Z96.642 Presence of left artificial hip joint
CPT/HCPCS: 72100

== ENCOUNTER 2024-03-20 10:19 | Outpatient (AMB) | payer OTHER, SELFPAY ==
--- NOTE | 2024-03-20 10:20 | A.OFFVIS_ITS ---
Intake Visit Reasons: OV - new problem RT Hip Pain Intake Note: Rosibel is a 78 yo female who presents with complaints of progressively worsening right hip pain. She has undergone left total hip replacement surgery in the past. She denies any pain in her left hip. She describes her right hip pain as sharp in nature. Most of the pain is located within her right groin. She has done physical therapy exercises which aggravated her pain. She has also tried Tylenol and Celebrex which gave her minimal relief. She wishes to hold off on right total hip replacement surgery if possible. She has had cortisone injections given into her low back which gave her mild relief of her back pain. Allergies pantoprazole Allergy (Intermediate, Verified 03/20/24 10:21) Rash pravastatin Allergy (Intermediate, Verified 03/20/24 10:21) Muscle Pain Medication List - Last Reconciled 03/20/24 by Jim Peres MD acetaminophen 650 mg (2 x 325 mg) PO Q6H PRN 30 days amlodipine 5 mg PO DAILY celecoxib (Celebrex) 200 mg PO DAILY PRN docusate sodium 100 mg PO BID 30 days hydroxyzine HCl 5 mg PO TID PRN walker Folding front wheeled walker COUNTS INCLUDE 234 BEDS AT THE [facility] Medical History (Updated 03/20/24 @ 10:54 by Jim Peres MD) L1 vertebral fracture History of vertebral fracture Arthritis of left hip Eczema HTN (hypertension) Osteoarthritis Surgical History History of total left hip arthroplasty (06/18/23) History of Hx of colonoscopy History of back surgery History of total right knee replacement (TKR) History of total left knee replacement (TKR) Family History Mother Breast cancer Sister Dementia Leukemia Father Emphysema of lung Social History Household Members: Significant Other Housing: Condominium Are you a primary primary care coordinator to a significant other at home: No Do you presently have visiting nurse or other home services: No 75 years or older and lives alone: No Alcohol intake: current Alcohol intake frequency: holidays/special occasions only Comment: all counts correct Patient Tobacco Use Status: Never used Tobacco service: No Current occupational status: retired Physical Exam Const Other: Well-nourished well-developed very friendly female awake alert and oriented x3 in no acute distress Extrem Other: Bilateral lower extremity examination shows good capillary refill, no skin lesions noted, normal sensation light touch Right hip examination shows decreased range of motion when compared to her left hip, pain with range of motion, no tenderness over her bursa Results Reviewed Results Reviewed: X-rays of the patient's right hip taken previously show joint space narrowing, subchondral sclerosis, osteophyte formation, no acute bony abnormalities Assessment & Plan Assessment & Plan (1) Arthritis of right hip: Code(s): M16.11 - Unilateral primary osteoarthritis, right hip Category: Medical Plan Ms. Cormier presents with right hip pain due to degenerative joint disease. I had a lengthy discussion with the patient regarding the treatment options. She wishes to hold off on right total hip replacement surgery if at all possible. Thus, I will arrange for the patient to have an intra-articular right hip cortisone injection in our pain management clinic here at [facility]. The patient will follow-up as instructed. Feel free to call me at any time should questions regarding her orthopedic management arise. I spent 21 minutes in reviewing the patient's records and imaging studies, seeing the patient and documenting in the medical record. Orders: Referrals Pain Management Referral M16.11 - Unilateral primary osteoarthritis, right hip Coding Level of Care Code Est Pt Level 3 (54921) Diagnoses Arthritis of right hip M16.11
== END 2024-03-20 10:55 | disposition home or self-care (01) ==
PROVIDERS: PCP Internal Medicine Pulmonary Disease; Visit Provider Orthopaedic Surgery
DX: M16.11 Unilateral primary osteoarthritis, right hip (principal)
CPT/HCPCS: 99213

== ENCOUNTER → 2024-03-20 10:19 | Outpatient (BNVA) | payer OTHER, SELFPAY | PROVIDERS: PCP Internal Medicine Pulmonary Disease; Visit Provider Orthopaedic Surgery ==

== ENCOUNTER 2024-04-01 12:44 | Outpatient (AMB) | payer OTHER, SELFPAY ==
--- NOTE | 2024-04-01 13:04 | HO.SPINEOV ---
Intake Visit Reasons: chronic L1 fracture with retropulsion Intake Note: Ms. Cormier is here today c/o right sided back and leg pain. Outside Salesperson Required: No Allergies pantoprazole Allergy (Intermediate, Verified 03/20/24 10:21) Rash pravastatin Allergy (Intermediate, Verified 03/20/24 10:21) Muscle Pain Assessment & Plan Assessment & Plan (1) Lumbar spinal stenosis: Code(s): M48.061 - Spinal stenosis, lumbar region without neurogenic claudication Category: Medical Plan Dear Dr. Hamilton, Thank you for referring Rosibel to our office today. She is a pleasant 78-year-old female who comes in today with a chief complaint of pain in her legs and low back. She reports that she fell 4-5 months ago and fractured 2 spots in her pelvis. She had x-ray imaging completed here at [facility] that showed a chronic L1 burst fracture, prompting an MRI. When discussing her back pain she states it feels the same as it was prior to her fall. She denies any radicular pain down her bilateral legs. She denies any numbness/tingling/burning sensations. She states that she previously had a left-sided hip replacement in 2022, and is due for a right-sided hip replacement this fall. When discussing her ambulation she says she is still able to walk well with the assistance of a cane, but does need to stop and rest after about 10-15 minutes. She is able to continue after a short period of rest. She has been to physical therapy for this issue, but has not attempted any other conservative measures other than Tylenol, Celebrex, and a back brace. PMH: Hypertension, osteoarthritis, osteoporosis. History of 3 previously fractured vertebral bodies when sledding in her mid 20s (unsure which levels). History of previous compression fracture in lumbar spine roughly 7 years ago (unsure of exact level). Social hx: The patient does not smoke, reports no substance use. Medications: Tylenol, amlodipine, Celebrex, docusate, hydroxyzine. Allergies: NKDA. Physical exam: The patient has 5/5 strength in her upper and lower extremities. She has no significant sensational deficits. Her reflexes are 1+ hypoactive diffusely. She is able to climb up to the examination table without issue and rises from a seated position by bracing herself on the chair. She ambulates with the assistance of a cane. (-) Salazar's, (-) clonus, (-) bilateral straight leg raise. Imaging review: MRI of the lumbar spine completed at [place] shows L1 compression fracture with slight retropulsion, causing mild central canal stenosis and mild-moderate bilateral foraminal stenosis at this level. There is complete loss of disc height between T12-L1, with evidence of autofusion between these levels. There varying levels of stenosis seen diffusely throughout the rest of the lumbar spine. Most severe at L3-4, L4-5 where there is severe central canal and bilateral foraminal stenosis. In addition to this there appears to be a slight grade 1 listhesis between L4-5. Impression: Rosibel is a pleasant 78-year-old female who comes in today with a chief complaint of low back pain with some bilateral pains in her legs. She largely attributes the pain in her legs to her continued issues with her hips. She is scheduled to undergo a right-sided total hip replacement this fall. We discussed how she does have a couple of levels of likely chronic degenerative stenosis in her lumbar spine. Her L1 compression fracture appears to be chronic and is auto fused to T12. There is only mild stenosis seen as a result of the retropulsion noted at this level. The severe stenosis seen at L3-4, L4-5 is certainly something that is operable; however the patient would have to be much less functional and ideally would treat the confounding factors (hip) before we attempted a surgical intervention. The patient will reach back out to us in the future if her symptoms worsen, or continue despite treatment of other physical health issues. Thank you for allowing us to care for your patient. The total time spent with this visit with this patient was 45 minutes reviewing history, physical exam, MRI imaging review, and implementation of treatment plan or further diagnostic testing Karl Celaya MD,PhD [facility] Coding Level of Care Code New Pt Level 4 (98608) Diagnoses Lumbar spinal stenosis M48.061
== END 2024-04-01 13:38 | disposition home or self-care (01) ==
PROVIDERS: PCP Internal Medicine Pulmonary Disease; Referring Provider Physical Medicine & Rehabilitation; Visit Provider Physician Assistant
DX: M48.061 Spinal stenosis, lumbar region without neurogenic claudication (principal)
CPT/HCPCS: 99204; 99214

== ENCOUNTER → 2024-04-01 12:44 | Outpatient (BNVA) | payer OTHER, SELFPAY | PROVIDERS: PCP Internal Medicine Pulmonary Disease; Visit Provider Physician Assistant ==

== ENCOUNTER 2024-04-02 07:53 | Outpatient (AMB) | payer OTHER, SELFPAY ==
--- NOTE | 2024-04-02 07:56 | MHC.OFFVIS ---
Vital Signs 04/02/24 07:59 Height 5 ft 2 in Weight 173 lb BMI 31.6 BP 161/69 H Blood Pressure Location Rt brachial Position Sitting Respiration 14 Pulse 70 Pulse Source Pulse Oximeter Pulse Oximetry (%) 99 Oxygen Delivery Method Room Air Intake Visit Reasons: Osteoarthritis of Right Hip/Injection Allergies No Known Allergies Allergy (Verified 04/02/24 08:01) Medication List - Last Reconciled 04/02/24 by Fatoumata Lara LPN acetaminophen 650 mg (2 x 325 mg) PO Q6H PRN 30 days amlodipine 5 mg PO DAILY celecoxib (Celebrex) 200 mg PO DAILY PRN docusate sodium 100 mg PO BID 30 days walker Folding front wheeled walker HPI HPI Osteoarthritis of Right Hip/Injection: Details: 78 year old female presents today for evaluation of osteoarthritis of right hip. She has been having worsening right hip pain with radiating pain down to her legs. She occasionally experiences pain in the hip and legs with movement. She recalls that she had a fall 4-5 months ago, and fractured 2 spots in her pelvis. Previously underwent left total hip replacement surgery in 2022, and currently denies left hip pain. She describes her right hip pain as sharp in nature. She has tried physical therapy but it seemed to be aggravated her pain. She states she is able to walk with the help of a cane, but she needs to stop and rest for 10-15 minutes, and is able to continue after that. She has also tried Tylenol and Celebrex with minimal relief. She has had cortisone injection for low back pain which provided mild relief. Her x-ray imaging at [facility] showed a chronic L1 burst fracture. She had an MRI done. She denies any radicular pain down her bilateral legs or numbness/tingling/burning sensations. She was seen by Dr. Peres on 03/20/24, who recommended right total hip replacement surgery as a possible treatment option. Patient deferred surgery at this time, and would like to proceed with intra-articular right hip cortisone injection. She is due for a right-sided hip replacement this fall. She was seen by human resources benefits specialist on 04/01/24, and was discussed MRI results in detail as well as possible surgery. Denies any recent cough, cold, infection, fever or other significant changes in medical history since last office visit. PFSH Medical History (Updated 03/20/24 @ 10:54 by Jim Peres MD) L1 vertebral fracture History of vertebral fracture Arthritis of left hip Eczema HTN (hypertension) Osteoarthritis Surgical History History of total left hip arthroplasty (06/18/23) History of Hx of colonoscopy History of back surgery History of total right knee replacement (TKR) History of total left knee replacement (TKR) Family History Mother Breast cancer Sister Dementia Leukemia Father Emphysema of lung Social History Household Members: Significant Other Housing: Condominium Are you a primary critical care cns to a significant other at home: No Do you presently have visiting nurse or other home services: No 75 years or older and lives alone: No Alcohol intake: current Alcohol intake frequency: holidays/special occasions only Comment: all counts correct Patient Tobacco Use Status: Never used Tobacco service: No Current occupational status: retired Physical Exam Vital Signs: Last Vital Signs Pulse 70 04/02/24 07:59 Resp 14 04/02/24 07:59 BP 161/69 H 04/02/24 07:59 Pulse Ox 99 04/02/24 07:59 Oxygen Delivery Method Room Air 04/02/24 07:59 BMI result Body Mass Index 31.6 General: Appears afebrile. Alert and oriented. Mood and affect appropriate. Follows and participates in conversation appropriately. Respiratory effort is unlabored. Able to transition from sit to stand unassisted. Ambulates with bilaterally normal heel strike and toe off. Office Procedures Joint Injection/Aspiration Joint Injection/Aspiration Details: Intra-articular hip injection, right, US-guided Prep: site was prepped using sterile technique Injected: 40 mg of, Kenalog and with 1 mL of (ropivacaine 0.5%) Approach Used: anterior Procedure: The patient tolerated the procedure well Coding 15444 - Large joint Procedure code (CPT) selection complete Results Reviewed Results Reviewed: Date: 02/07/24 EXAMINATION: XR LUMBOSACRAL SPINE FINDINGS: Bones are osteopenic. Mild leftward curvature of the spine. There is severe compression deformity of L1 vertebral body. This of indeterminate age. Grade 1 anterolisthesis of L4 on L5. Multilevel disc degenerative changes, with disc height loss, endplate osteophytes in the visualized lower thoracic and the lumbar spine. Bilateral SI joint arthritis. Left hip arthroplasty is partially imaged. Prominent vascular calcification. Nonobstructive bowel gas pattern. Study is assigned for dictation on February 22, 2024 IMPRESSION: Severe compression deformity/fracture of the L1 vertebral body. This of indeterminate age. Clinically correlate, correlate with prior imaging. Further evaluation with MRI as clinically indicated. Grade 1 anterolisthesis of L4 on L5. Multilevel moderate spondylosis in the visualized spine. Assessment & Plan Assessment & Plan (1) Lumbar spinal stenosis: Code(s): M48.061 - Spinal stenosis, lumbar region without neurogenic claudication Category: Medical (2) Arthritis of right hip: Code(s): M16.11 - Unilateral primary osteoarthritis, right hip Category: Medical Plan Patient is status post right hip intra-articular injection, US guidance. Patient tolerated procedure well and was discharged home in stable condition with discharge instructions. All questions were answered. Discussed the multifactorial nature of her symptoms, a lot of which seem to be stemming from her lumbar spine degenerative disc and joint disease. She also has a significant radicular component and I think if the hip injection is not helpful, she may want to reconsider undergoing right hip replacement and instead focus on optimization of her spine issues to help with her radicular symptoms. Patient expressed understanding. Scribed for Dr. Fam by Manuel medical field representative, on 04/02/2024. I, Dr. Fam, have personally reviewed and agree with the information entered by the scribe. Coding Level of Care Code New Pt Level 4 (84527) Diagnoses Lumbar spinal stenosis M48.061 Arthritis of right hip M16.11 CPT Codes Coding - Large joint: 72705 - Large joint ([id number])
[2024-04-02 07:59] VITALS: BP 161/69; PULSE 70; RESP 14; O2SAT 99; BMI 31.6
== END 2024-04-02 08:37 | disposition home or self-care (01) ==
PROVIDERS: PCP Internal Medicine Pulmonary Disease; Visit Provider Internal Medicine
DX: M25.551 Pain in right hip (principal)
CPT/HCPCS: 20611; 99204

== ENCOUNTER → 2024-04-02 07:53 | Outpatient (BNVA) | payer OTHER, SELFPAY | PROVIDERS: PCP Internal Medicine Pulmonary Disease; Visit Provider Internal Medicine | DX: M16.11 Unilateral primary osteoarthritis, right hip (principal); M48.061 Spinal stenosis, lumbar region without neurogenic claudication | CPT/HCPCS: 20611; J2795; J3301 ==

== ENCOUNTER 2024-04-29 10:28 | Outpatient (REF) | payer OTHER, SELFPAY ==
--- NOTE | ~2024-04-29 | XR_ITS ---
EXAMINATION: XR HIP, LEFT CLINICAL INFORMATION: M25.552 - Pain in left hip COMPARISON: 12/07/2023, 10/19/2023, dating back to 05/03/2023. TECHNIQUE: AP and frog-leg lateral views of the left hip. FINDINGS: There is diffuse osteopenia. No acute fracture, dislocation or suspicious focal bone lesion. Old healed fractures of the pubic rami on the left. Total left hip arthroplasty in place, with acetabular femoral components intact and well-positioned anatomically. No periprosthetic lucencies, subsidence, or other abnormalities. Solitary cerclage wire in place. Severe arthritis with complete loss of superior joint space right hip. Degenerative changes lower lumbar spine and bilateral SI joints. No discrete soft tissue abnormalities. XR/XR hip LT min 2V IMPRESSION: 1. No acute findings in the pelvis or left hip. 2. Left total hip arthroplasty in place without complication seen. Stable exam without changes. 3. Severe osteoarthrosis right hip joint. 4. Osteopenia. Electronically signed by: Iván Guardado MD 07/08/2024 12:14 PM JAYA CARRASCO
== END 2024-04-29 10:29 | disposition home or self-care (01) ==
LOC: HO.HOSX 10:28
PROVIDERS: PCP Internal Medicine Pulmonary Disease; Visit Provider Orthopaedic Surgery
DX: M25.552 Pain in left hip (principal)
CPT/HCPCS: 73502

== ENCOUNTER → 2024-04-29 10:35 | Outpatient (BNV) | payer OTHER, SELFPAY | PROVIDERS: PCP Internal Medicine Pulmonary Disease; Visit Provider Radiology Diagnostic Radiology | DX: Z96.642 Presence of left artificial hip joint (principal) | CPT/HCPCS: 73502 ==

== ENCOUNTER 2024-04-29 11:17 | Outpatient (AMB) | payer OTHER, SELFPAY ==
--- NOTE | 2024-04-29 11:18 | A.OFFVIS_ITS ---
Intake Visit Reasons: right hip pain Intake Note: Rosibel is a 79 year old female who presents with complaints of progressively worsening right hip pain. The patient has undergone left total hip replacement surgery in the past. She reports minimal discomfort in her left hip. She describes her right hip pain as sharp and severe in nature. At this point her right hip pain is interfering with her activities of daily living and her ability to sleep well through the night. Allergies No Known Allergies Allergy (Verified 04/29/24 11:25) Medication List - Last Reconciled 04/29/24 by Jim Peres MD acetaminophen 650 mg (2 x 325 mg) PO Q6H PRN 30 days amlodipine 5 mg PO DAILY celecoxib (Celebrex) 200 mg PO DAILY PRN docusate sodium 100 mg PO BID 30 days walker Folding front wheeled walker [facility] Medical History (Updated 03/20/24 @ 10:54 by Jim Peres MD) L1 vertebral fracture History of vertebral fracture Arthritis of left hip Eczema HTN (hypertension) Osteoarthritis Surgical History History of total left hip arthroplasty (06/18/23) History of Hx of colonoscopy History of back surgery History of total right knee replacement (TKR) History of total left knee replacement (TKR) Family History Mother Breast cancer Sister Dementia Leukemia Father Emphysema of lung Social History Household Members: Significant Other Housing: [facility] Are you a primary geriatric care manager to a significant other at home: No Do you presently have visiting nurse or other home services: No 75 years or older and lives alone: No Alcohol intake: current Alcohol intake frequency: holidays/special occasions only Comment: all counts correct Patient Tobacco Use Status: Never used Tobacco service: No Current occupational status: retired Physical Exam Const Other: Well-nourished well-developed very friendly female awake alert and oriented x3 in no acute distress Extrem Other: Bilateral lower extremity examination shows good capillary refill, no skin lesions noted, normal sensation light touch Right hip examination shows decreased range of motion when compared to her left hip, pain with range of motion, no tenderness over her bursa, no overlying Results Reviewed Results Reviewed: X-rays of the patient's right hip show end-stage degenerative joint disease with grade 4 [id number] arthritis, subchondral sclerosis, no acute bony abnormalities Assessment & Plan Assessment & Plan (1) Arthritis of right hip: Code(s): M16.11 - Unilateral primary osteoarthritis, right hip Category: Medical Plan Ms. Cormier presents with right hip pain due to end-stage degenerative joint disease. At this point she has failed continued non operative treatments. She is interested in undergoing right total hip replacement surgery. Thus, I will arrange for her to have an appointment with Dr. Christopher for further information regarding surgery. She will follow-up as instructed. I spent 20 minutes in reviewing the patient's records and imaging studies, seeing the patient and documenting in the medical record. Orders: Orders XR hip LT min 2V Today M25.552 - Pain in left hip Coding Level of Care Code Est Pt Level 3 (95967) Complex EM visit Add On G2211 Diagnoses Arthritis of right hip M16.11
== END 2024-04-29 11:41 | disposition home or self-care (01) ==
PROVIDERS: PCP Internal Medicine Pulmonary Disease; Visit Provider Orthopaedic Surgery
DX: M16.11 Unilateral primary osteoarthritis, right hip (principal); Z96.642 Presence of left artificial hip joint
CPT/HCPCS: 99213

== ENCOUNTER 2024-05-08 10:58 | Outpatient (AMB) | payer OTHER, SELFPAY ==
--- NOTE | 2024-05-08 11:04 | A.OFFVIS_ITS ---
Vital Signs 05/08/24 11:05 Height 5 ft 2 in Weight 173 lb BMI 31.6 Intake Visit Reasons: OV-Lower back pain-follow up Intake Note: Rosibel is a 79 year old female who presents to the office today for Lower back pain-follow up. Lumbar X-ray done 02/07/24. Pt states her right hip pain has not improved since the last visit. She does not think her pain is related to her yoan k but her right hip. She continues to take Tylenol and Celebrex with minimal relief. Allergies No Known Allergies Allergy (Verified 05/08/24 11:05) HPI Comments Details: LT JERRY 06/18/23 with good results/recovery, follows with Dr. Peres recently, being considered for right JERRY. Over the years, she's had vertebral fractures, from a bad fall at age 31s and another fall 6 years ago. Remembers L4?L5? levels, no intervention/kyphoplasty. Rested, eventually healed. Also had disc herniation in . Always had back pain that would be across the waist line. Fall mechanical last August, sustaining displaced left superior and inferior pubic ramus fractures, 08/22/2023. Xray done after I saw her showed possible L1 fracture. MRI done, confirmed severe L1 compression deformity, but without cord compression. I referred her to [facility], seen by them : Her L1 compression fracture appears to be chronic and is auto fused to T12. There is only mild stenosis seen as a result of the retropulsion noted at this level. The severe stenosis seen at L3-4, L4-5 is certainly something that is operable; however the patient would have to be much less functional and ideally would treat the confounding factors (hip) before we attempted a surgical intervention. Treatment done so far: finished PT 2 months at least, ended November Celebrex, tylenol She says to me today that her main complaint is right hip, it does seem to come from right lower back and down to right leg. Hard to walk and get out of bed. Uses cane. Seeing Dr. Christopher 05/23 for consideration of right JERRY. She did have right intraarticular injection by Dr. Fam, which unfortunately did not help. She is aware that neurospine recommends management of the right hip first before considering lumbar surgery for the stenosis. [facility] Medical History (Updated 05/08/24 @ 11:59 by Zuly Mullins MD) L1 vertebral fracture History of vertebral fracture Arthritis of left hip Eczema HTN (hypertension) Osteoarthritis Surgical History History of total left hip arthroplasty (06/18/23) History of Hx of colonoscopy History of back surgery History of total right knee replacement (TKR) History of total left knee replacement (TKR) Family History Mother Breast cancer Sister Dementia Leukemia Father Emphysema of lung Social History Household Members: Significant Other Housing: Condominium Are you a primary customer care professional to a significant other at home: No Do you presently have visiting nurse or other home services: No 75 years or older and lives alone: No Alcohol intake: current Alcohol intake frequency: holidays/special occasions o nly Comment: all counts correct Patient Tobacco Use Status: Never used Tobacco service: No Current occupational status: retired Physical Exam Vital Signs: BMI result Body Mass Index 31.6 Constitutional: Patient appears to be in no acute distress, well nourished and well developed. Patient was appropriately conversant and oriented. Good historian. MSK/Neurological: Give-way weakness bilateral hip flexion due to pain. Reflexes symmetric. Salazar?s negative bilaterally. Babinski was down going bilaterally. Clonus was negative. Gait is antalgic without loss of balance, using cane. Results Reviewed Results Reviewed: EXAMINATION: XR LUMBOSACRAL SPINE CLINICAL INFORMATION: Dorsalgia COMPARISON: None available. TECHNIQUE: Three views of the lumbosacral spine. FINDINGS: Bones are osteopenic. Mild leftward curvature of the spine. There is severe compression deformity of L1 vertebral body. This of indeterminate age. Grade 1 anterolisthesis of L4 on L5. Multilevel disc degenerative changes, with disc height loss, endplate osteophytes in the visualized lower thoracic and the lumbar spine. Bilateral SI joint arthritis. Left hip arthroplasty is partially imaged. Prominent vascular calcification. Nonobstructive bowel gas pattern. Study is assigned for dictation on February 22, 2024 XR/XR lumbar spine 2-3V IMPRESSION: Severe compression deformity/fracture of the L1 vertebral body. This of indeterminate age. Clinically correlate, correlate with prior imaging. Further evaluation with MRI as clinically indicated. Grade 1 anterolisthesis of L4 on L5. Multilevel moderate spondylosis in the visualized spine. The report will be called to the ordering clinician by a [place] Radiology Physician Grinding Mill Operator. Assessment & Plan Assessment & Plan (1) Arthritis of right hip: Code(s): M16.11 - Unilateral primary osteoarthritis, right hip Category: Medical (2) L1 vertebral fracture: Code(s): S32.019A - Unspecified fracture of first lumbar vertebra, initial encounter for closed fracture Category: Medical Qualifiers: Encounter type: subsequent encounter Fracture type: closed Fracture morphology: wedge compression Fracture healing: with routine healing Qualified Code(s): S32.010D - Wedge compression fracture of first lumbar vertebra, subsequent encounter for fracture with routine healing (3) Lumbar spinal stenosis: Code(s): M48.061 - Spinal stenosis, lumbar region without neurogenic claudication Category: Medical Qualifiers: Neurogenic claudication status: with neurogenic claudication Qualified Code(s): M48.062 - Spinal stenosis, lumbar region with neurogenic claudication Plan Anticipating right hip replacement, to see Dr. Christopher in couple of weeks. Please see neurospine note regarding back pain, fracture and spinal stenosis. Patient denies any pinpoint tenderness over T12 or L1. Assessment and plan discussed with patient, and patient was agreeable. All questions were answered thoroughly. Follow up with physiatry as needed. Zuly Mullins MD, JUAN Board Certified, [place] Board [employer] and Rehabilitation (ABPMR) Board Certified, [place] Board [employer] Electrodiagnostic Medicine (ABEM) Coding Level of Care Code Est Pt Level 3 (34472) Diagnoses Arthritis of right hip M16.11 Closed wedge compression fracture of L1 vertebra with routine healing, subsequent encounter S32.010D Encounter type: subsequent encounter Fracture type: closed Fracture morphology: wedge compression Fracture healing: with routine healing Spinal stenosis of lumbar region with neurogenic claudication M48.062 Neurogenic claudication status: with neurogenic claudication
[2024-05-08 11:05] VITALS: BMI 31.6
== END 2024-05-08 11:26 | disposition home or self-care (01) ==
PROVIDERS: PCP Internal Medicine Pulmonary Disease; Visit Provider Physical Medicine & Rehabilitation
DX: M16.11 Unilateral primary osteoarthritis, right hip (principal); S32.010D Wedge compression fracture of first lumbar vertebra, subsequent encounter for fracture with routine healing; M48.062 Spinal stenosis, lumbar region with neurogenic claudication
CPT/HCPCS: 99213

== ENCOUNTER → 2024-05-08 10:58 | Outpatient (BNVA) | payer OTHER, SELFPAY | PROVIDERS: PCP Internal Medicine Pulmonary Disease; Visit Provider Physical Medicine & Rehabilitation ==

== ENCOUNTER 2024-05-23 11:15 | Outpatient (AMB) | payer OTHER, SELFPAY ==
[2024-05-23 11:18] VITALS: BMI 31.6
--- NOTE | 2024-05-23 11:18 | A.OFFVIS_ITS ---
Vital Signs 05/23/24 11:18 Height 5 ft 2 in Weight 173 lb BMI 31.6 Intake Visit Reasons: OV- Discuss Right Hip Replacement Intake Note: Rosibel is a 79 year old female who presents today as she was referred by Dr. Peres to discuss possible Right JERRY. She has had previous Left JERRY at an outside facility. Patient states that she has pain from her hip down to her leg. She has trouble with ambulation. Patient has been taking over the counter pain meds for the pain. Allergies No Known Allergies Allergy (Verified 05/23/24 11:19) HPI HPI OV- Discuss Right Hip Replacement: Details: Rosibel is a 79 year old female who presents today as she was referred by Dr. Peres to discuss possible Right JERRY. She has had previous Left JERRY at an outside facility. Patient states that she has pain from her hip down to her leg. She has trouble with ambulation. Patient has been taking over the counter pain meds for the pain. She limps and feels like the quality of her life is severely compromised. She feels similar to when she had a prior hip arthritis and a left hip replacement. [facility] Medical History (Updated 05/08/24 @ 11:59 by Zuly Mullins MD) L1 vertebral fracture History of vertebral fracture Arthritis of left hip Eczema HTN (hypertension) Osteoarthritis Surgical History History of total left hip arthroplasty (06/18/23) History of Hx of colonoscopy History of back surgery History of total right knee replacement (TKR) History of total left knee replacement (TKR) Family History Mother Breast cancer Sister Dementia Leukemia Father Emphysema of lung Social History Household Members: Significant Other Housing: Condominium Are you a primary managed care provider to a significant other at home: No Do you presently have visiting nurse or other home services: No 75 years or older and lives alone: No Alcohol intake: current Alcohol intake frequency: holidays/special occasions only Comment: all counts correct Patient Tobacco Use Status: Never used Tobacco service: No Current occupational status: retired Physical Exam Vital Signs: BMI result Body Mass Index 31.6 Extrem Other: Right hip with positive impingement test and antalgic gait. Results Reviewed Results Reviewed: I personally reviewed relevant radiographs. Severe right hip osteoarthritis Left total hip in appropriate postoperative position with no hardware complications. Assessment & Plan Assessment & Plan (1) Arthritis of right hip: Code(s): M16.11 - Unilateral primary osteoarthritis, right hip Category: Medical Plan: This is a very pleasant 71-year-old woman with right hip osteoarthritis. She had a left hip replacement several years ago and did very well. Her signs and symptoms of arthritis are similar in her right hip and the quality of her life is diminished. I recommend right hip arthroplasty. I discussed this with her in detail and explained the risks, benefits and alternatives including, but not limited to, the risk of infection, dislocation, fracture, need for additional surgery. She expressed understanding and we will proceed forward accordingly. Coding Level of Care Code Est Pt Level 4 (88821) Diagnoses Arthritis of right hip M16.11
== END 2024-05-23 11:57 | disposition home or self-care (01) ==
PROVIDERS: PCP Internal Medicine Pulmonary Disease; Visit Provider Orthopaedic Surgery
DX: M16.11 Unilateral primary osteoarthritis, right hip (principal)
CPT/HCPCS: 99214

== ENCOUNTER → 2024-05-23 11:15 | Outpatient (BNVA) | payer OTHER, SELFPAY | PROVIDERS: PCP Internal Medicine Pulmonary Disease; Visit Provider Orthopaedic Surgery ==

== ENCOUNTER → 2024-06-30 10:41 | Outpatient (BNVA) | payer OTHER, SELFPAY | PROVIDERS: PCP Internal Medicine Pulmonary Disease | DX: Z01.818 Encounter for other preprocedural examination (principal) ==

== ENCOUNTER 2024-07-08 14:05 | Outpatient (AMB) | payer OTHER, SELFPAY ==
[2024-07-08 14:26] VITALS: BP 146/78; PULSE 71; BMI 30.9
--- NOTE | 2024-07-08 14:26 | A.OFFVIS_ITS ---
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/ nguyen/Jose G pcp refer- abn ekg Aoc Operations Intelligence Chief Required: No Accompanied by: Self / Same As Patient Allergies No Known Allergies Allergy (Verified 06/30/24 11:06) Medication List - Last Reconciled 07/08/24 by Layton Jimenez MD acetaminophen 650 mg (2 x 325 mg) PO Q6H PRN 30 days amlodipine 5 mg PO DAILY celecoxib (Celebrex) 200 mg PO DAILY docusate sodium 100 mg PO Q OTHER DAY polyethylene glycol 3350 (Miralax) 17 grams PO 3XW tramadol 50 mg PO Q8-10H walker Folding front wheeled walker HPI Comments Details: Rosibel is here for consultation regarding preoperative risk stratification for hip surgery. It appears that she had an EKG that was thought to be abnormal and hence she has been referred here. Last year, she had left hip arthroplasty with out any issues. Patient states that she has never had any cardiac issues whatsoever. No history of any coronary disease or myocardial infarction or cardiomyopathy or in fact anything cardiac sounding. She was extremely active apparently. Even this past summer, she states she was doing a lot of yd work without any issues. Prior to that, she could do as much as 2-3 flights of stairs without any cardiac symptoms. [facility] Medical History (Updated 07/08/24 @ 15:02 by Layton Jimenez MD) Bronchitis L1 vertebral fracture History of vertebral fracture Eczema HTN (hypertension) Osteoarthritis Arthritis of left hip Surgical History History of total left hip arthroplasty (06/18/23) History of Hx of colonoscopy History of back surgery History of total right knee replacement (TKR) History of total left knee replacement (TKR) Family History Mother Breast cancer Sister Dementia Leukemia Father Emphysema of lung Social History Household Members: Significant Other Housing: Condominium Are you a primary healthcare project manager to a significant other at home: No Do you presently have visiting nurse or other home services: No 75 years or older and lives alone: No Alcohol intake: current Alcohol intake frequency: holidays/special occasions only Comment: all counts correct Patient Tobacco Use Status: Never used Tobacco service: No Current occupational status: retired Review of Systems Const Denies chills, Denies fatigue, Denies fever(s), Denies weight gain and Denies weight loss Eyes Denies loss of vision ENT Denies dizziness Card Denies chest pain, Denies leg edema, Denies lightheadedness, Denies palpitations, Denies dyspnea on exertion, Denies orthopnea and Denies other Resp Denies cough, Denies dyspnea on exertion and Denies wheezing GI Denies hematochezia and Denies change in stool character Denies urinary frequency and Denies dysuria Musc Denies abnormal gait, Denies muscle weakness, Denies numbness, Denies radiating pain into limb and Denies tingling Skin/Breast Denies nail changes and Denies rash Neuro Denies Abnormal speech present, Denies abnormal gait, Denies dizziness, Denies loss of vision, Denies memory loss, Denies numbness and Denies tingling Psych Denies depression and Denies memory loss Endo Denies fatigue and Denies palpitations Gene/Lymph Denies easy bruising Aller/Immun Denies wheezing Physical Exam Vital Signs: Last Vital Signs Pulse 71 07/08/24 14:26 BP 146/78 H 07/08/24 14:26 BMI result Body Mass Index 30.9 Const General: comfortable and no acute distress Orientation/consciousness: patient oriented x3 HEENT Other: Unremarkable Head: Yes normal to inspection Neck Neck: Yes normal visual inspection Chest Chest palpation & inspection: normal inspection of the chest Resp Auscultation: clear to auscultation bilaterally Cardio Palpation: normal PMI Heart sounds: S1 normal heart sound present, S2 normal heart sound present, no gallops, no murmurs and no rubs GI Palpation (GI): Soft to palpation Back/Spine/Pelvis Other: unremarkable Skin General skin exam: no rashes or lesions noted Neuro General: patient oriented x3 Speech: No Abnormal speech present Extrem General: Yes normal to inspection Psych Mental Status: mental status grossly normal Office Procedures EKG Details: EKG with underlying sinus rhythm at 71/Min; low-voltage QRS complexes; nonspecific ST-T changes in the anterior leads as well as inferior [place] [id number], Complete Assessment & Plan Assessment & Plan (1) Preoperative cardiovascular examination: Code(s): Z01.810 - Encounter for preprocedural cardiovascular examination Category: Medical (2) Abnormal EKG: Code(s): R94.31 - Abnormal electrocardiogram [ECG] [EKG] Category: Medical Plan EKG essentially shows nonspecific changes. Compared with prior studies from 2012 and 2008 and do not see any obvious change. Overall, chronic nonspecific ST-T changes, but with no cardiac symptoms and previously uneventful orthopedic surgeries. Plan to get a transthoracic echocardiogram. If that is unremarkable, may proceed as planned. Low cardiac risk. If any abnormal findings, then we can reassess. Orders: Orders CA echo transthoracic complete Today R94.31 - Abnormal electrocardiogram [ECG] [EKG], Z01.810 - Encounter for preprocedural cardiovascular examination Coding Level of Care Code New Pt Level 3 (71938) Diagnoses Preoperative cardiovascular examination Z01.810 Abnormal EKG R94.31 CPT Codes EKG - CPT: 77379-[id number], Complete ([id number])
== END 2024-07-08 15:10 | disposition home or self-care (01) ==
PROVIDERS: PCP Internal Medicine Pulmonary Disease; Visit Provider Internal Medicine
DX: Z01.810 Encounter for preprocedural cardiovascular examination (principal); R94.31 Abnormal electrocardiogram [ECG] [EKG]
CPT/HCPCS: 93010; 99203

== ENCOUNTER → 2024-07-08 14:05 | Outpatient (BNVA) | payer OTHER, SELFPAY | PROVIDERS: PCP Internal Medicine Pulmonary Disease; Visit Provider Internal Medicine | DX: Z01.810 Encounter for preprocedural cardiovascular examination (principal); R94.31 Abnormal electrocardiogram [ECG] [EKG] | CPT/HCPCS: 93005 ==

== ENCOUNTER → 2024-07-14 07:57 | Outpatient (REF) | payer OTHER, SELFPAY ==
--- NOTE | 2024-07-14 08:00 | CA_ITS ---
Transthoracic Echocardiogram Patient (Last, First, Middle): Rosibel Cormier, Gender: Female Date of : 1945 Age: 79 Procedure Date: 07/14/2024 Procedure Type: Transthoracic Echocardiogram Location: OP Height: 157.48 cm Weight: 74.84 kg BSA: 1.76 m2 Heart Rate: bpm BP: 124 / 80 mmHg Front Attendant: Referring MD: Layton Jimenez MD Symptoms: Z01.810 - Encounter for preprocedural cardiovascular examination Study Quality: Good ECG Rhythm: Sinus Conclusions: - The left ventricular systolic function is normal. The calculated ejection fraction is 59% by biplane method. - No obvious valvular pathology seen on this study. Findings Left Ventricle Normal left ventricular cavity size. The left ventricular systolic function is normal. The calculated ejection fraction is 59% by biplane method. There is no evidence of regional wall motion abnormalities. Evidence suggests grade I (mild) diastolic dysfunction. Severe focal hypertrophy of the basal septum. Right Ventricle Normal right ventricular cavity size and systolic function. Atria The left atrium is moderately dilated. The right atrium is normal in size. Aortic Valve There is a normal trileaflet aortic valve. There is no aortic valve stenosis. There is no aortic valve regurgitation. Mitral Valve The mitral valve appears normal. There is trace mitral valve regurgitation. There is no mitral valve stenosis. Pulmonic Valve The pulmonic valve is likely normal. Tricuspid Valve Normal tricuspid valve structure. There is trace tricuspid valve regurgitation. There is no evidence of pulmonary hypertension. Great Vessels The sinuses of valsalva and asc aorta are normal in size. Venous The inferior vena cava is normal in size and collapses less than 50% with inspiration. Pericardium/Pleural There is no evidence of pericardial effusion. Prior Study Comparison No prior study available for comparison. Recommendations, Care & Conclusions No obvious valvular pathology seen on this study. Measurements 2D Linear Measurements IVSd: 1.11 0.6-0.9/0.6-1.0 cm LVIDd: 4.77 3.9-5.3/4.2-5.9 cm LVIDd Index: 2.71 2.4-3.2/2.2-3.1 cm/m2 LVIDs: 2.77 2.0-3.6 cm LVPWd: 1.03 0.7-1.1 cm Ao Root: 3.00 2.1-3.5 cm LA Diam: 4.60 2.7-3.8/3.0-4.0 cm LAIDs Index: 2.61 1.5-2.3 cm/m2 LV Mass: 230.26 67-162/88-224 g LV Mass Index: 130.83 43-95/49-115 g/m2 LVOT Diam: 2.20 3.0+(-)1.3 cm 2D Systolic Function EF 4C: 55.70 >55% EF 2C: 62.60 >55% EF BiP: 59.00 >55% Mitral Valve MV Pk E: 0.67 MV PK A: 0.78 MV Decel Time: 174.00 E/A: 0.90 E'Lateral: 5.11 E'Medial: 4.57 E/E' Med: 14.70 E/E' Lat: 13.20 PHT: 51.00 MVA PHT: 4.31 Decel [place]: 3.87 Aortic Valve AoV Pk Niranjan: 1.27 AoV Mn Niranjan: 0.83 AoV VTI: 0.33 AoV Pk Grad: 6.00 Aov Mn Grad: 3.00 STEFANY Cont.VTI: 2.65 LVOT LVOT Pk Niranjan: 0.86 LVOT Mn Niranjan: 0.58 LVOT VTI: 0.23 LVOT Pk Grad: 3.00 LVOT Mn Grad: 2.00 LVOT Diam: 2.20 LVOT Area: 3.80 Diastolic Function MV Pk E: 0.67 MV Pk A: 0.78 E/A: 0.90 E'Medial: 4.57 E/E' Med: 14.70 E' Laterial: 5.11 E/E' Lat: 13.20 Right Ventricle TAPSE (mm): 25.00 TVS' Niranjan: 16.00 Tricuspid Valve TR Pk Niranjan: 2.06 TR Pk Grad: 17.00 RA Press: 3.00 RVSP: 20.00 Great Vessels Aorta Ao Root-2D: 3.00 2.0-3.7 cm Ao Asc: 3.00 2.1-3.4 cm Pulmonary Valve PV Pk Niranjan: 0.84 Peak PV Grad: 3.00 Updated in Other Vendor System with Status of Final Layton Jimenez MD electronically signed on 07/15/2024 1:13:38 PM with status of Final
== END ==
LOC: HO.CARD 07:57
PROVIDERS: PCP Internal Medicine Pulmonary Disease; Visit Provider Internal Medicine
DX: Z01.810 Encounter for preprocedural cardiovascular examination (principal); R94.31 Abnormal electrocardiogram [ECG] [EKG]
CPT/HCPCS: 93306

== ENCOUNTER → 2024-07-14 08:00 | Outpatient (BNV) | payer OTHER, SELFPAY | PROVIDERS: PCP Internal Medicine Pulmonary Disease; Visit Provider Internal Medicine | DX: I42.2 Other hypertrophic cardiomyopathy (principal) | CPT/HCPCS: 93306 ==

== ENCOUNTER 2024-07-24 10:02 | Outpatient (REF) | payer MEDICARE, SELFPAY | END 2024-07-24 10:03 | disposition home or self-care (01) | LOC: HO.HOSX 10:02 | PROVIDERS: Visit Provider Physician Assistant | DX: M25.551 Pain in right hip (principal); Z96.641 Presence of right artificial hip joint | CPT/HCPCS: 73502; 99212 ==

== ENCOUNTER 2024-07-24 10:31 | Outpatient (AMB) | payer MEDICARE, SELFPAY ==
--- NOTE | 2024-07-24 10:57 | MHC.OFFVIS ---
Vital Signs 07/24/24 11:01 Height 5 ft 2 in Weight 168 lb BMI 30.7 Intake Visit Reasons: TM CHAYA: Pre-Op:R JERRY w/NE 07/29/24 Intake Note: Rosibel a 79 year old female who presents today for a preoperative right JERRY on 07/29/24 NE. Pain management agreement reviewed and signed. Allergies No Known Allergies Allergy (Verified 07/24/24 11:01) Medication List - Last Reconciled 07/24/24 by Lisha Ko PA-C acetaminophen 650 mg (2 x 325 mg) PO Q6H PRN 30 days amlodipine 5 mg PO DAILY celecoxib (Celebrex) 200 mg PO DAILY docusate sodium 100 mg PO Q OTHER DAY polyethylene glycol 3350 (Miralax) 17 grams PO 3XW tramadol 50 mg PO Q8-10H walker Folding front wheeled walker HPI Comments Details: Ms Cormier presents to the office today for preop visit. She is scheduled for right total hip arthroplasty with Dr. Christopher. She continues to have ongoing pain and difficulty with ambulation in the right hip, which is affecting her quality of life; therefore, she has elected to move forward with surgery. [facility] Medical History (Updated 07/24/24 @ 11:07 by Lisha Ko PA-C) Bronchitis L1 vertebral fracture History of vertebral fracture Eczema HTN (hypertension) Osteoarthritis Arthritis of left hip Surgical History History of total left hip arthroplasty (06/18/23) History of Hx of colonoscopy History of back surgery History of total right knee replacement (TKR) History of total left knee replacement (TKR) Family History Mother Breast cancer Sister Dementia Leukemia Father Emphysema of lung Social History Household Members: Significant Other Housing: Condominium Are you a primary hospice care transitions coordinator to a significant other at home: No Do you presently have visiting nurse or other home services: No 75 years or older and lives alone: No Alcohol intake: current Alcohol intake frequency: holidays/special occasions only Comment: all counts correct Patient Tobacco Use Status: Never used Tobacco service: No Current occupational status: retired Review of Systems Const All systems reviewed & are unremarkable except as noted in HPI and below Physical Exam Vital Signs: BMI result Body Mass Index 30.7 Extrem Other: Right hip with positive impingement test and antalgic gait. Assessment & Plan Assessment & Plan (1) Primary osteoarthritis of right hip: Code(s): M16.11 - Unilateral primary osteoarthritis, right hip Category: Medical Plan: I discussed in detail the procedure and what to expect pre and post operatively. We discussed the risks, benefits and alternatives to the surgery as well as the rehabilitation course. The risks; which include, but are not limited to infection, bleeding, nerve injury, ongoing pain, swelling, and stiffness, perioperative risk of injury to bones and soft tissues, and blood clots. I?ve answered all questions and with their understanding they have consented to move forward with Right total hip arthroplasty with Dr. Candi CANALES for PT Orders: Orders XR hip RT min 2V Today M25.551 - Pain in right hip Coding Level of Care Code Est Pt Level 3 (20791) Complex EM visit Add On G2211 Diagnoses Primary osteoarthritis of right hip M16.11
[2024-07-24 11:01] VITALS: BMI 30.7
== END 2024-07-24 11:27 | disposition home or self-care (01) ==
PROVIDERS: PCP Internal Medicine Pulmonary Disease; Visit Provider Physician Assistant
DX: M16.11 Unilateral primary osteoarthritis, right hip (principal)
CPT/HCPCS: 99213; G2211

== ENCOUNTER 2024-07-29 06:48 | Day surgery (SDC) | payer MEDICARE, SELFPAY ==
[2024-06-30 12:18] VITALS: BP 130/64; PULSE 65; RESP 20; O2SAT 98; BMI 31.1
[2024-06-30 15:48] LABS: MRSA Nasal PCR NEGATIVE (Negative); SA Nasal PCR NEGATIVE (Negative)
--- NOTE | 2024-07-28 12:20 | HO.ANESPROP2 ---
Documented by User: Concha Vidales NP 07/28/24 12:57 HPI - Anesthesia Eval Consult details Narrative: 79yo F for Right Hip Total Replacement Medically optimized Cardiac optimized s/p Left JERRY 06/2023 without issues per patient, GA-ETT 7 PMFSH Active Problems Active Problems: All Active Problems (Updated 09/20/23 @ 08:47 by Palmira Yap) Primary osteoarthritis of right hip (Acute) Abnormal EKG (Acute) Preoperative cardiovascular examination (Acute) Arthritis of right hip (Acute) Lumbar spinal stenosis (Acute) Left hip pain (Acute) Fracture of left inferior pubic ramus (Acute ~08/22/23) Fracture of left superior pubic ramus (Acute ~08/22/23) L1 vertebral fracture (Acute) History of vertebral fracture (Acute) History of total left hip arthroplasty (Acute 06/18/23) Past Medical History Medical History Bronchitis L1 vertebral fracture History of vertebral fracture Eczema HTN (hypertension) Osteoarthritis Arthritis of left hip Family History Family History Mother Breast cancer Sister Dementia Leukemia Father Emphysema of lung Family history of problems with anesthesia: No Surgical History Surgical History History of total left hip arthroplasty (06/18/23) History of Hx of colonoscopy History of back surgery History of total right knee replacement (TKR) History of total left knee replacement (TKR) History of Problems with Anesthesia: No Social History Social History Household Members: Significant Other Housing: Condominium Are you a primary team primary care physician to a significant other at home: No Do you presently have visiting nurse or other home services: No Alcohol intake: current Alcohol intake frequency: holidays/special occasions only Comment: all counts correct Patient Tobacco Use Status: Never used Tobacco Use of substances other than those prescribed or required for medical reasons: No Have you been hit, kicked, punched, or otherwise hurt by someone within the past year? If so, by whom?: No Are you DNR?: No Advance Directives: No Advance Directives Information Provided: Yes Advance Directives on File: No Recently lost weight without trying: No Eating poorly because of decreased appetite: No Nutrition Risks: No Nutritional Risk Patient : No : No Poor oral hygiene: Yes (upper partial denture) service: No Current occupational status: retired [employer] Allergies Allergy/AdvReac Type Severity Reaction Status Date / Time No Known Allergies Allergy Verified 07/29/24 07:04 Home Medications ?Medication ?Instructions ?Recorded ?Confirmed ?Last Taken ?Type amlodipine 5 mg tablet 5 mg PO DAILY 05/03/23 07/29/24 07/29/24 History celecoxib 200 mg capsule (Celebrex) 200 mg PO DAILY pain 06/30/24 07/29/24 07/28/24 History docusate sodium 100 mg capsule 100 mg PO Q OTHER DAY 06/30/24 07/29/24 07/28/24 History polyethylene glycol 3350 17 17 g PO 3XW 06/30/24 07/29/24 07/28/24 History gram/dose oral powder (Miralax) tramadol 50 mg tablet 50 mg PO Q8-10H 06/30/24 07/29/24 07/22/24 History Exam Height,Weight and Vital Signs: Height 5 ft 2 in Weight 77.111 kg Last Vital Signs Pulse 65 06/30/24 12:18 Resp 20 06/30/24 12:18 BP 130/64 06/30/24 12:18 Pulse Ox 98 06/30/24 12:18 O2 Del Method Room Air 06/30/24 12:18 Pertinent Lab Results Pertinent Lab Results: Laboratory Tests 06/30/24 07/24/24 12:30 11:45 Nasal Screen MRSA (PCR) NEGATIVE Nasal S. aureus Screen NEGATIVE Nasal MRSA/S.aureus Interp SEE NOTE Blood Type A Positive Antibody Screen NEGATIVE CBC and BMP 06/2024 from outside facility WNL Narrative Narrative: EKG 06/2024 Details: EKG with underlying sinus rhythm at 71/Min; low-voltage QRS complexes; nonspecific ST-T changes in the anterior leads as well as inferior leads. Normal IN and corrected QT. ECHO 07/2024 Conclusions: - The left ventricular systolic function is normal. The calculated ejection fraction is 59% by biplane method. - No obvious valvular pathology seen on this study. Assessment and Plan Final Anesthetic Review Family History of Problems with Anesthesia: No History of Problems with Anesthesia: No Documented by User: Selina Chauhan MD 07/29/24 08:40 PMFSH Past Medical History Medical History Bronchitis L1 vertebral fracture History of vertebral fracture Eczema HTN (hypertension) Osteoarthritis Arthritis of left hip Family History Family History Mother Breast cancer Sister Dementia Leukemia Father Emphysema of lung Surgical History Surgical History History of total left hip arthroplasty (06/18/23) History of Hx of colonoscopy History of back surgery History of total right knee replacement (TKR) History of total left knee replacement (TKR) Social History Social History Household Members: Significant Other Housing: [facility] Are you a primary team primary care physician to a significant other at home: No Do you presently have visiting nurse or other home services: No Alcohol intake: current Alcohol intake frequency: holidays/special occasions only Comment: all counts correct Patient Tobacco Use Status: Never used Tobacco Use of substances other than those prescribed or required for medical reasons: No Have you been hit, kicked, punched, or otherwise hurt by someone within the past year? If so, by whom?: No Are you DNR?: No Advance Directives: No Advance Directives Information Provided: Yes Advance Directives on File: No Recently lost weight without trying: No Eating poorly because of decreased appetite: No Nutrition Risks: No Nutritional Risk Patient : No : No Poor oral hygiene: Yes (upper partial denture) service: No Current occupational status: retired Meds Allergies Allergy/AdvReac Type Severity Reaction Status Date / Time No Known Allergies Allergy Verified 07/29/24 07:04 Home Medications ?Medication ?Instructions ?Recorded ?Confirmed ?Last Taken ?Type amlodipine 5 mg tablet 5 mg PO DAILY 05/03/23 07/29/24 07/29/24 History celecoxib 200 mg capsule (Celebrex) 200 mg PO DAILY pain 06/30/24 07/29/24 07/28/24 History docusate sodium 100 mg capsule 100 mg PO Q OTHER DAY 06/30/24 07/29/24 07/28/24 History polyethylene glycol 3350 17 17 g PO 3XW 06/30/24 07/29/24 07/28/24 History gram/dose oral powder (Miralax) tramadol 50 mg tablet 50 mg PO Q8-10H 06/30/24 07/29/24 07/22/24 History Exam Airway Mallampati Class: II TM Dist: >3cm Neck ROM: Full Heart: rrr Lungs: cta Assessment and Plan Final Anesthetic Review NPO: Yes ASA Class: III Final Preanesthetic Review: No Changes in Pt Med Stat, Meds/Allgs Chart Reviewed, Consent Obtained/Reviewed and Anes Risks/Benef Reviewed Patient Risk: Intermediate Procedure Risk: Intermediate Anesthetic Plan Anesthetic Plan: GA Disposition: Standard PACU
[2024-07-29] VITALS (32 sets, daily range): BP systolic 122–163; BP diastolic 49–90; PULSE 63–90; RESP 8–18; TEMP 36.2–37; O2SAT 89–100; BMI 30.5
--- NOTE | ~2024-07-29 | XR_ITS ---
EXAMINATION: XR PELVIS CLINICAL INFORMATION: S/p R JERRY COMPARISON: 07/24/2024 TECHNIQUE: AP view of the pelvis. FINDINGS: The right total hip arthroplasty components are in the usual position and alignment without evidence of loosening or fracture. Skin tank overlie the operative site. XR/XR pelvis 1-2V IMPRESSION: Expected postoperative appearance of the right total hip arthroplasty. Electronically signed by: Sergio Nguyen MD 07/29/2024 05:44 PM JAYA
[2024-07-29] MEDS: oxyCODONE HCl ER 10 MG TAB.ER.12H PO ×2 (07:25→20:22)
--- NOTE | 2024-07-29 07:31 | MHC.SHP ---
Pre-Procedural Eval Section A - 24 Hr Update-Section A only Date of Service: 07/29/24 The patient is an INPATIENT: No Changes since office visit: No Cold of Flu in the past 2 weeks, No New Medical Problems, No Changes in Medication and No Patient answered all questions The patient has been examined within 24 hours of the surgical procedure. The History & Physical has been completed within 30 days and I have reviewed it.: Yes Section B - Complete if H&P > 30 days Chief Complaint: Unilateral primary osteoarthritis, right hip Allergies: Allergies Allergy/AdvReac Type Severity Reaction Status Date / Time No Known Allergies Allergy Verified 07/29/24 07:04 Plan I have reviewed the history and physical and performed a pertinent physical examination on my patient. No changes have occurred unless specified. Time Spent With Patient Time: Total time managing care of this patient today ____ minutes.
[2024-07-29] MEDS: Lactated Ringers 1,000 ML 100 ML IVCONT ×2 (07:44→16:59)
--- NOTE | 2024-07-29 11:07 | PM.OP ---
Brief Operative Note Date of Service: 07/29/24 Pre-op diagnosis: Right hip OA Post-op diagnosis: same Procedure: Right JERRY Implants: [place] Trident2 48/ 10 deg liner with Accolade2 #5 132 with +0/32 CoCr Surgeon: Suleiman Christopher MD Anesthesia: GETA and local Was an Lawn Sprinkler Installer used for this Procedure?: Yes Lawn Sprinkler Installer: Lisbeth Thurston Estimated blood loss (mL): 200 IV fluids (mL): 1,000 Pathology: other Condition: stable Disposition: PACU
--- NOTE | 2024-07-29 11:18 | P.OP_ITS ---
Operative Note Operative Note Date of Service: 07/29/24 Narrative: Date of Service: 07/29/24 Pre-op diagnosis: Right hip OA Post-op diagnosis: same Procedure: Right JERRY Implants: [place] Trident2 48/ 10 deg liner with Accolade2 #5 132 with +0/32 CoCr Surgeon: Suleiman Christopher MD Anesthesia: GETA and local Was an Friction Paint Machine Tender used for this Procedure?: Yes Friction Paint Machine Tender: Lisbeth Thurston Estimated blood loss (mL): 200 IV fluids (mL): 1,000 Pathology: other Condition: stable Disposition: PACU Procedure in detail: Patient was brought into the operating room and placed in the right lateral decubitus position. All bony prominences were well padded and the limb was prepped and draped in standard sterile fashion. A time-out was called to identify proper site procedure proper surgeon IV antibiotics and 1 g of tranexamic acid were administered. I began by making a curvilinear incision over the posterolateral aspect of the greater trochanter. Dissection was taken down to the tensor fascia which was incised in line with the incision and a Charnley retractor was placed. Cautery was used to maintain hemostasis. The hip was internally rotated and the external rotators were identified. The vessels were cauterized and a full-thickness capsular/external rotator layer was developed starting just proximal to the piriformis. This layer was tagged and a dull Hohmann retractor was placed underneath the neck in the hip was dislocated. A neck cut was made 1 cm proximal to the lesser trochanter and the head and neck were removed and measured 44 mm on the back table. The head was deformed and eburnated. I then removed the labrum and cauterized the fovea. I started with a 42reamer and medialized to the inner table. I sequentially reamed up to a size 48 and impacted a 48mm cup at 45 degrees of inclination and 25 degrees of version. I then placed a 20 deg posterior lipped liner and turned my attention to the femur. I identified the piriformis insertion and used this as a starting point for my george cutter. The medius tendon was protected with a Hibs retractor. A Charnley awl was inserted in the canal and a curved curette used to remove the lateral bone. I irrigated copiously. I then sequentially broached in the patient's natural version to a size 5 and placed my trial implants. I used a #5/132/+0 based on my pre-operative template. I removed all instrumentation and copiously irrigated. I placed my final femoral implant and again took the hip through range of motion and was satisfied with the stability and length. The final +0 implant was impacted in place and the hip reduced. I then irrigated copiously and placed 1 g of local tranexamic acid. I performed a capsular closure with 2.0 fiberwire, Sherwin's fascia with 0 Vicryl, subcuticular with 2-0 Vicryl and the skin with tank. Patient was placed into a sterile dressing. Patient was extubated brought to the recovery room in stable condition. There were no known complications.
[2024-07-29] MEDS: HYDROmorphone HCl 0.5 MG/0.5 ML SYRINGE 0.25 MG IVPUSH ×9 (11:41→12:22)
[2024-07-29] MEDS: fentaNYL citrate/PF 100 MCG/2 ML VIAL 50 MCG IVPUSH (12:31)
--- NOTE | 2024-07-29 12:46 | P.DS_ITS ---
DS: Providers Provider Date of Service: 07/30/24 Primary care physician: Moses Haywood MD DS: Summary Hospital Course Hospital Course: The patient underwent a successful right total hip arthroplasty, they were t ransferred to PACU and then to the floor to recover. During their stay, their vitals were stable, afebrile at 97.6. Labs were unremarkable, H/H 10.9/31.9. POD 1 they were started on Aspirin 325mg po bid for DVT ppx, they also received Physical Therapy services twice a day. Prior to discharge, their dressing was clean dry and intact, and the plan was to be discharged home with VNA services. Time Attestation Discharge Coordination Time (in mins): 30 Quality: Safe Use of Opioids Does Pt have an Active Cancer Diagnosis on the Problem List?: No Quality: Stroke Does the patient have a stroke diagnosis?: No Physical Exam Vital Signs: Vital Signs: Last Vital Signs Temp 97.3 F 07/29/24 11:28 Pulse 66 07/29/24 12:40 Resp 12 07/29/24 12:40 BP 141/71 H 07/29/24 12:40 Pulse Ox 98 07/29/24 12:40 O2 Del Method Nasal Cannula wit h Capnography 07/29/24 12:40 O2 Flow Rate 2 07/29/24 12:40 BMI result Body Mass Index 30.5 Const: General: cooperative, healthy appearing and no acute distress Resp: Effort & Inspection: normal respiratory effort and able to speak in complete sentences Cardio: Rate: regular rate Peripheral pulses: Peripheral pulses 2+ throughout GI: Palpation (GI): Soft to palpation Skin: Lesions: no lesions Rashes: no rashes Extrem: Other: right hip dressing is c/d/i. Able to dorsi/plantar flex. Calf is supple and nontender. Sensation intact. Pedal pulse intact. DS: Data Data Completed and Pending Completed studies during hospitalization [Text1]: Procedures Replacement of Left Hip Joint with Ceramic on Polyethylene Synthetic Substitute, Cemented, Open Approach (06/18/23) Pending studies at discharge: Pending at discharge 07/29/24 10:13 Surgical [PTH] Routine Discharge Plan Discharge Patient Disposition: Home Health Service Referrals: Lisha Ko PA-C [Physician District Attorney] - 08/14/24 11:30 am Discharge Medications: No Action (DME) walker Misc See Rx Instructions .ROUTE .MEDSUPPLY Qty: 1 0RF Rx Instructions: Folding front wheeled walker polyethylene glycol 3350 [Miralax] 17 gram/dose Powder 17 g PO 3XW celecoxib [Celebrex] 200 mg capsule 200 mg PO DAILY docusate sodium 100 mg capsule 100 mg PO Q OTHER DAY acetaminophen 325 mg Tablet 650 mg PO Q6H PRN (Reason: Pain, Mild (Pain Scale 1-3)) 30 Days Qty: 240 0RF tramadol 50 mg tablet 50 mg PO Q8H amlodipine 5 mg tablet 5 mg PO DAILY Discharge Orders: Discharge Order (Routine); Ordered 07/30/24 Ordered By: Lisbeth Thurston Diet: Advance to usual diet Activity on Discharge: Use cane or walker Activity Restrictions/Additional Instructions: Physical Therapy for total hip arthroplasty: posterior precautions, gait training, ROM, strength Limit stair climbing No showering, no tub bath-keep dressing clean, dry and intact No driving x6 weeks Continue anticoagulant x 6 weeks Follow up with [facility] [place] Orthopedics in 2 weeks Print Language: Italian
--- NOTE | 2024-07-29 12:47 | W.MHC.F2F ---
Service Date Service Date: 07/29/24 Encounter Date of encounter: 07/30/24 Reasons for Services Signs and symptoms assessed: s/p RTHA Pt. is considered homebound due to recent surgery. Unable to drive, poor balance, poor gait mechanics. Reason for physical therapy: home safety and mobility, therapeutic exercises, restore joint function, gait/transfer training and ADL training Reason for occupational therapy: home safety and mobility, therapeutic exercises, restore joint function, gait/transfer training and ADL training Homebound: Leaving the home is medically contraindicated at this time without the asist of a device and/or another person due th the listed conditions above and below. Reason homebound: unsteady gait / fall risk, leg weakness, pain with ambulation, poor balance / fall risk and unable to drive Certification: Based on the above findings, I certify that this patient is confined to the home and needs intermittent half-way care, physical therapy and/or speech therapy, or continues to need occupational therapy. The patient is under my care, and I have initiated the establishment of the plan of care. The patient will be followed by a physician who will periodically review the plan of care. Time Spent With Patient Time: Total time managing care of this patient today ____ minutes.
--- NOTE | 2024-07-29 12:57 | PHA.MEDREC ---
Addendum entered by Rito Gerber 07/29/24 13:06: reviewed Original Note: Pharmacy Consult ? Medication Reconciliation Pharmacy has reviewed the medication reconciliation done by nursing. Claims match med list.
--- NOTE | 2024-07-29 15:20 | PM.IMHP ---
History of Present Illness Date of Service: 07/29/24 Chief Complaint: htn 79F PMH htn, osteoarthritis admitted for elective right total hip arthroplasty. Medical consultation requested for hypertension. Normally well controlled on amlodipine 5 mg daily. Review of Systems Review of Systems: Yes all other systems are reviewed and are negative [facility] Medical History Bronchitis L1 vertebral fracture History of vertebral fracture Eczema HTN (hypertension) Osteoarthritis Arthritis of left hip Family History Mother Breast cancer Sister Dementia Leukemia Father Emphysema of lung Surgical History History of total left hip arthroplasty (06/18/23) History of Hx of colonoscopy History of back surgery History of total right knee replacement (TKR) History of total left knee replacement (TKR) Social History Household Members: Significant Other Housing: [facility] Are you a primary animal care giver to a significant other at home: No Do you presently have visiting nurse or other home services: No Alcohol intake: current Alcohol intake frequency: holidays/special occasions only Comment: all counts correct Patient Tobacco Use Status: Never used Tobacco Use of substances other than those prescribed or required for medical reasons: No Have you been hit, kicked, punched, or otherwise hurt by someone within the past year? If so, by whom?: No Are you DNR?: No Advance Directives: No Advance Directives Information Provided: Yes Advance Directives on File: No Recently lost weight without trying: No Eating poorly because of decreased appetite: No Nutrition Risks: No Nutritional Risk Patient : No : No Poor oral hygiene: Yes (upper partial denture) service: No Current occupational status: retired Meds Allergies Allergy/AdvReac Type Severity Reaction Status Date / Time No Known Allergies Allergy Verified 07/29/24 07:04 Active Medications: Current Medications Acetaminophen (Acetaminophen 325 Mg Tablet) 650 mg PO Q6H PRN PRN Reason: Pain, Mild (Pain Scale 1-3), fever or headache Amlodipine Besylate (Amlodipine Besylate 5 Mg Tablet) 5 mg PO DAILY [facility]; Protocol Aspirin (Aspirin 325 Mg Tablet) 325 mg PO BID [facility] Celecoxib (Celecoxib 200 Mg Capsule) 200 mg PO BID [facility] Docusate Sodium (Docusate Sodium 100 Mg Capsule) 100 mg PO BID [facility] Fentanyl (Fentanyl Citrate/Pf 100 Mcg/2 Ml Vial) 50 mcg IVPUSH Q5M PRN PRN Reason: Pain, Moderate to Severe (Pain Scale 4-10) Stop: 07/29/24 18:27 Last Admin: 07/29/24 12:31 Dose: 50 mcg Hydromorphone HCl (Hydromorphone Hcl 0.5 Mg/0.5 Ml Syringe) 0.25 mg IVPUSH Q4H PRN; Protocol PRN Reason: Pain, Severe (Pain Scale 7-10) Cefazolin Sodium/Dextrose (Ancef) 2 gm in 50 mls @ 100 mls/hr IV POSTOP ONE Stop: 07/29/24 15:43 Lactated Ringer's (Lr) 1,000 mls @ 100 mls/hr IVCONT .Q10H [facility] Stop: 07/30/24 12:00 Ondansetron HCl (Ondansetron Hcl 4 Mg/2 Ml Vial) 4 mg IVPUSH Q8H PRN PRN Reason: Nausea and Vomiting Oxycodone HCl (Oxycodone Hcl Immed Release 5 Mg Tablet) 5 mg PO Q4H PRN PRN Reason: Pain, Moderate(Pain Scale 4-6) Oxycodone HCl (Oxycodone Hcl Er 10 Mg Tab.Er.12h) 10 mg PO BID [facility] Sodium Chloride (0.9 % Sodium Chloride Flush 3 Ml Syringe) 3 ml IVFLUSH QSHIFT [facility] Home Medications ?Medication ?Instructions ?Recorded ?Confirmed ?Last Taken ?Type amlodipine 5 mg tablet 5 mg PO DAILY 05/03/23 07/29/24 07/29/24 History celecoxib 200 mg capsule (Celebrex) 200 mg PO DAILY pain 06/30/24 07/29/24 07/28/24 History docusate sodium 100 mg capsule 100 mg PO Q OTHER DAY 06/30/24 07/29/24 07/28/24 History polyethylene glycol 3350 17 17 g PO 3XW 06/30/24 07/29/24 07/28/24 History gram/dose oral powder (Miralax) tramadol 50 mg tablet 50 mg PO Q8H 11/07/29/24 07/22/24 History Physical Exam Vital Signs and Narrative: Vital Signs: Last Vital Signs Temp 98.6 F 07/29/24 15:13 Pulse 74 07/29/24 15:13 Resp 16 07/29/24 15:13 BP 145/71 H 07/29/24 15:13 Pulse Ox 96 07/29/24 15:13 O2 Del Method Nasal Cannula 07/29/24 15:13 O2 Flow Rate 2.0 07/29/24 15:13 BMI result Body Mass Index 30.5 General: AO X 3, no acute distress Resp: CTA bilateral, no accessory muscles used CVS: S1,S2,RRR GI: soft, non tender, non distended Psych: appropriate affect, appropriate insight Assessment and Plan (1) Arthritis of right hip: Status: Acute Plan 79F PMH htn, osteoarthritis admitted for elective right total hip arthroplasty Hypertension Continue with amlodipine Monitor We will sign off for now please recall if needed Quality Stroke Does the patient have a stroke diagnosis?: No VTE Prior VTE?: No VTE Risk Level:: Medical - moderate - high VTE Device Contraindication: Treatment Not Indicated VTE Drug Contraindication: N/A - Med Ordered
[2024-07-29] MEDS: ceFAZolin Sodium/Dextrose,Iso 2 GM/50 ML PIGGYBACK IV (16:59)
[2024-07-29] MEDS: 0.9 % Sodium Chloride Flush 3 ML SYRINGE IVFLUSH (17:06)
[2024-07-29] MEDS: oxyCODONE HCl Immed Release 5 MG TABLET PO (17:48)
[2024-07-29] MEDS: Celecoxib 200 MG CAPSULE PO (20:21)
[2024-07-29] MEDS: Docusate Sodium 100 MG CAPSULE PO (20:21)
[2024-07-30] VITALS (8 sets, daily range): BP systolic 118–143; BP diastolic 57–84; PULSE 77–88; RESP 16–18; TEMP 36–37; O2SAT 93–98
[2024-07-30] MEDS: oxyCODONE HCl Immed Release 5 MG TABLET PO ×4 (02:47→14:37)
[2024-07-30] MEDS: Lactated Ringers 1,000 ML 100 ML IVCONT (02:47)
[2024-07-30 05:54] LABS: MANUAL DIFF FLAG NO
[2024-07-30 05:59] LABS: Basophils Percent Auto 0.2 % (0-2); Hematocrit 31.9 % (37.0-47.0); Hemoglobin 10.9 g/dl (12.0-16.0); Imm Gran Abs Auto 0.06 X10*3/uL (0.00-0.03); Imm Gran Pct Auto 0.4 % (0.0-0.4); Lymphocytes Absolute Auto 2.5 X10*3/uL (1.2-4.9); Lymphocytes Percent Auto 16.1 % (20-40); Mean Corpuscular HGB Conc 34.2 g/dl (31.0-35.0); Mean Corpuscular Hemoglobin 30.3 pg (27.0-33.0); Mean Corpuscular Volume 88.6 fL (80.0-98.0); Mean Platelet Volume 9.8 fL (9.4-12.3); Monocytes Absolute Auto 1.2 X10*3/uL (0.1-1.2); Monocytes Percent Auto 7.6 % (2-11); Neutrophils Absolute Auto 11.6 x10*3/uL (2.0-8.3); Neutrophils Percent Auto 75.7 % (45-73); Platelet Count 219 X10*3/uL (160-400); Red Cell Distribution Width 12.5 % (11.0-16.0); White Blood Count 15.3 X10*3/uL (4.8-10.8)
[2024-07-30 06:20] LABS: Anion Gap 14 (12-20); Blood Urea Nitrogen 16 mg/dL (9-16); Calcium 9.1 mg/dL (8.4-10.2); Carbon Dioxide 25 mmol/L (22-29); Chloride 103 mmol/L (96-108); Creatinine Clr Calc Pharmacy 64.9; Estimated Glomerular Filt Rate > 60; Glucose Fasting 123 mg/dL (60-99); Potassium 4.5 mmol/L (3.3-5.1); Sodium 137 mmol/L (135-145)
[2024-07-30] MEDS: Docusate Sodium 100 MG CAPSULE PO ×2 (06:50→20:17)
[2024-07-30] MEDS: amLODIPine Besylate 5 MG TABLET PO (06:50)
[2024-07-30] MEDS: Celecoxib 200 MG CAPSULE PO ×2 (06:50→20:17)
[2024-07-30] MEDS: Aspirin 325 MG TABLET PO ×2 (06:51→20:17)
[2024-07-30] MEDS: oxyCODONE HCl ER 10 MG TAB.ER.12H PO ×2 (06:51→20:17)
--- NOTE | 2024-07-30 08:14 | PM.PNORT ---
Subjective Subjective Date of Service: 07/30/24 Interval history: POD1 s/p RTHA Patient is resting in bed comfortably No overnight events Pain is managed No additional complaints Physical Exam Vital Signs: Vital Signs: Last Vital Signs Temp 97.6 F 07/30/24 07:00 Pulse 82 07/30/24 07:00 Resp 16 07/30/24 07:00 BP 133/84 07/30/24 07:00 Pulse Ox 97 07/30/24 07:00 O2 Del Method Room Air 07/30/24 07:00 O2 Flow Rate 2.0 07/29/24 19:26 BMI result Body Mass Index 30.5 Extrem: Other: rt hip dressing is c/d/i. Able to dorsi/plantar flex. Calf is supple and nontender. Sensation intact. Pedal pulse intact. Procedures Date of Service Date of Service: 07/30/24 Progress Note: A&P Assessment and plan (1) Status post total hip replacement, right: Status: Acute Plan Continue pain mgmnt Begin ASA for dvt ppx begin PT/OT for RTHA - posterior precautions Dispo planning-Pending PT eval, pain mgmnt, Patient would benefit from additional physical therapy for safe discharge home Time Spent With Patient Time: Total time managing care of this patient today ____ minutes. Quality Stroke Does the patient have a stroke diagnosis?: No VTE Prior VTE?: No VTE Risk Level:: Medical - moderate - high VTE Device Contraindication: Treatment Not Indicated VTE Drug Contraindication: N/A - Med Ordered
--- NOTE | 2024-07-30 09:50 | MHC.CM.PN ---
PT LIVES WITH S/O HAS OWN RIDE HOME HAD NO PREVIOUS SERVICES WILL BE DCD HOME WITH [facility]
[2024-07-30] MEDS: HYDROmorphone HCl 0.5 MG/0.5 ML SYRINGE 0.25 MG IVPUSH ×2 (10:20→20:16)
[2024-07-30] MEDS: Acetaminophen 325 MG TABLET 650 MG PO ×2 (10:48→17:14)
--- NOTE | 2024-07-30 10:55 | HO.POSTANES ---
Post Anesthesia Evaluation Post Anesthesia Evaluation Date of Service: 07/30/24 Vital Signs: Vital Signs Temp Pulse Resp BP Pulse Ox O2 Del Method 07/30/24 09:36 Room Air 07/30/24 08:12 82 133/84 97 07/30/24 07:00 97.6 F 82 16 133/84 97 Room Air 07/30/24 03:45 96.8 F 77 18 143/65 H 98 Room Air 07/29/24 23:31 97.1 F 76 16 160/77 H 93 Room Air Anesthesia: General Endotracheal-GETA Mental Status: Awake Pain Control: Satisfactory Nausea/Vomiting: None Hydration: Adequate Anesthesia-Related Issues: No Anes. Related Issues
[2024-07-30] MEDS: 0.9 % Sodium Chloride Flush 3 ML SYRINGE IVFLUSH ×2 (14:39→20:18)
[2024-07-31] VITALS (9 sets, daily range): BP systolic 117–144; BP diastolic 55–72; PULSE 79–96; RESP 16–18; TEMP 36.6–37.6; O2SAT 95–100
[2024-07-31 06:19] LABS: MANUAL DIFF FLAG NO
[2024-07-31 06:43] LABS: Anion Gap 12 (12-20); Blood Urea Nitrogen 13 mg/dL (9-16); Calcium 9.1 mg/dL (8.4-10.2); Carbon Dioxide 27 mmol/L (22-29); Chloride 105 mmol/L (96-108); Creatinine Clr Calc Pharmacy 71.1; Estimated Glomerular Filt Rate > 60; Glucose Fasting 93 mg/dL (60-99); Sodium 140 mmol/L (135-145)
[2024-07-31 07:06] LABS: Basophils Percent Auto 0.3 % (0-2); Eosinophils Absolute Auto 0.1 X10*3/uL (0.0-0.4); Eosinophils Percent Auto 1.1 % (0-4); Hematocrit 30.4 % (37.0-47.0); Hemoglobin 10.4 g/dl (12.0-16.0); Imm Gran Abs Auto 0.07 X10*3/uL (0.00-0.03); Imm Gran Pct Auto 0.6 % (0.0-0.4); Lymphocytes Absolute Auto 2.4 X10*3/uL (1.2-4.9); Lymphocytes Percent Auto 19.8 % (20-40); Mean Corpuscular HGB Conc 34.2 g/dl (31.0-35.0); Mean Corpuscular Hemoglobin 30.7 pg (27.0-33.0); Mean Corpuscular Volume 89.7 fL (80.0-98.0); Mean Platelet Volume 9.8 fL (9.4-12.3); Monocytes Absolute Auto 0.9 X10*3/uL (0.1-1.2); Monocytes Percent Auto 7.5 % (2-11); Neutrophils Absolute Auto 8.4 x10*3/uL (2.0-8.3); Neutrophils Percent Auto 70.7 % (45-73); Platelet Count 179 X10*3/uL (160-400); Red Blood Count 3.39 X10*6/uL (4.20-5.50); Red Cell Distribution Width 12.7 % (11.0-16.0); White Blood Count 11.8 X10*3/uL (4.8-10.8)
[2024-07-31] MEDS: HYDROmorphone HCl 0.5 MG/0.5 ML SYRINGE 0.25 MG IVPUSH ×2 (07:32→13:37)
[2024-07-31] MEDS: Docusate Sodium 100 MG CAPSULE PO ×2 (09:17→20:30)
[2024-07-31] MEDS: Celecoxib 200 MG CAPSULE PO ×2 (09:17→20:29)
[2024-07-31] MEDS: Aspirin 325 MG TABLET PO ×2 (09:17→20:30)
[2024-07-31] MEDS: amLODIPine Besylate 5 MG TABLET PO (09:17)
[2024-07-31] MEDS: oxyCODONE HCl ER 10 MG TAB.ER.12H PO ×2 (09:18→20:29)
[2024-07-31] MEDS: 0.9 % Sodium Chloride Flush 3 ML SYRINGE IVFLUSH ×3 (09:18→20:30)
--- NOTE | 2024-07-31 13:09 | PM.PNORT ---
Subjective Subjective Date of Service: 07/31/24 Interval history: POD2 s/p RTHA Patient is resting in bed comfortably No overnight events Reports intense pain No additional complaints Physical Exam Vital Signs: Vital Signs: Last Vital Signs Temp 97.9 F 07/31/24 11:00 Pulse 84 07/31/24 11:00 Resp 16 07/31/24 11:00 BP 122/59 L 07/31/24 11:00 Pulse Ox 100 07/31/24 11:49 O2 Del Method Room Air 07/31/24 11:49 O2 Flow Rate 2.0 07/29/24 19:26 BMI result Body Mass Index 30.5 Const: General: cooperative, healthy appearing and no acute distress Resp: Effort & Inspection: normal respiratory effort and able to speak in complete sentences Cardio: Rate: regular rate Peripheral pulses: Peripheral pulses 2+ throughout GI: Palpation (GI): Soft to palpation Skin: Lesions: no lesions Rashes: no rashes Extrem: Other: rt hip dressing is c/d/i. Able to dorsi/plantar flex. Calf is supple and nontender. Sensation intact. Pedal pulse intact. Procedures Date of Service Date of Service: 07/31/24 Progress Note: A&P Assessment and plan (1) Status post total hip replacement, right: Status: Acute Plan Continue pain mgmnt Begin ASA for dvt ppx Continue PT/OT for RTHA - posterior precautions Dispo planning-Pain mgmnt, P.T. recommending rehab - CM to begin rehab bed search Time Spent With Patient Time: Total time managing care of this patient today ____ minutes. Quality Stroke Does the patient have a stroke diagnosis?: No VTE Prior VTE?: No VTE Risk Level:: Medical - moderate - high VTE Device Contraindication: Treatment Not Indicated VTE Drug Contraindication: N/A - Med Ordered
[2024-08-01 03:00] VITALS: BP 131/63; PULSE 83; RESP 16; TEMP 36; O2SAT 97
[2024-08-01 06:16] LABS: MANUAL DIFF FLAG NO
[2024-08-01 06:39] LABS: Anion Gap 12 (12-20); Blood Urea Nitrogen 13 mg/dL (9-16); Carbon Dioxide 27 mmol/L (22-29); Chloride 105 mmol/L (96-108); Creatinine Clr Calc Pharmacy 78.8; Estimated Glomerular Filt Rate > 60; Glucose Fasting 97 mg/dL (60-99); Potassium 3.7 mmol/L (3.3-5.1); Sodium 140 mmol/L (135-145)
[2024-08-01 06:51] LABS: Basophils Absolute Auto 0.1 X10*3/uL (0.0-0.2); Basophils Percent Auto 0.5 % (0-2); Eosinophils Absolute Auto 0.5 X10*3/uL (0.0-0.4); Hematocrit 30.4 % (37.0-47.0); Hemoglobin 10.3 g/dl (12.0-16.0); Imm Gran Abs Auto 0.07 X10*3/uL (0.00-0.03); Imm Gran Pct Auto 0.6 % (0.0-0.4); Lymphocytes Absolute Auto 2.4 X10*3/uL (1.2-4.9); Lymphocytes Percent Auto 20.4 % (20-40); Mean Corpuscular HGB Conc 33.9 g/dl (31.0-35.0); Mean Corpuscular Hemoglobin 30.6 pg (27.0-33.0); Mean Corpuscular Volume 90.2 fL (80.0-98.0); Mean Platelet Volume 9.9 fL (9.4-12.3); Monocytes Absolute Auto 0.8 X10*3/uL (0.1-1.2); Monocytes Percent Auto 7.2 % (2-11); Neutrophils Absolute Auto 7.8 x10*3/uL (2.0-8.3); Neutrophils Percent Auto 67.3 % (45-73); Platelet Count 196 X10*3/uL (160-400); Red Blood Count 3.37 X10*6/uL (4.20-5.50); Red Cell Distribution Width 12.7 % (11.0-16.0); White Blood Count 11.6 X10*3/uL (4.8-10.8)
[2024-08-01 07:00] VITALS: BP 137/67; PULSE 78; RESP 18; TEMP 37.3; O2SAT 100
[2024-08-01] MEDS: Aspirin 325 MG TABLET PO (08:08)
[2024-08-01] MEDS: Celecoxib 200 MG CAPSULE PO (08:08)
[2024-08-01] MEDS: oxyCODONE HCl ER 10 MG TAB.ER.12H PO (08:08)
[2024-08-01] MEDS: Docusate Sodium 100 MG CAPSULE PO (08:08)
[2024-08-01] MEDS: amLODIPine Besylate 5 MG TABLET PO (08:09)
[2024-08-01] MEDS: 0.9 % Sodium Chloride Flush 3 ML SYRINGE IVFLUSH (08:09)
--- NOTE | 2024-08-01 09:51 | W.MHC.F2F ---
Service Date Service Date: 08/01/24 Encounter Date of encounter: 08/01/24 Reasons for Services Signs and symptoms assessed: s/p RTHA Pt. is considered homebound due to recent surgery. Unable to drive, poor balance, poor gait mechanics. Reason for physical therapy: home safety and mobility, therapeutic exercises, restore joint function, gait/transfer training and ADL training Reason for occupational therapy: home safety and mobility, therapeutic exercises, restore joint function, gait/transfer training and ADL training Homebound: Leaving the home is medically contraindicated at this time without the asist of a device and/or another person due th the listed conditions above and below. Reason homebound: unsteady gait / fall risk, leg weakness, pain with ambulation, pain with transfers, poor balance / fall risk and unable to drive Certification: Based on the above findings, I certify that this patient is confined to the home and needs intermittent senior living care, physical therapy and/or speech therapy, or continues to need occupational therapy. The patient is under my care, and I have initiated the establishment of the plan of care. The patient will be followed by a physician who will periodically review the plan of care. Time Spent With Patient Time: Total time managing care of this patient today ____ minutes.
--- NOTE | 2024-08-01 09:52 | P.DS_ITS ---
DS: Providers Provider Date of Service: 08/01/24 Primary care physician: Moses Haywood MD Consults: 07/29/24 15:14 Consult to Hospitalist Routine Comment: Consulting Provider: [facility] [facility] Hospitalists Reason For Exam: Medical management s/p R JERYR DS: Diagnosis Discharge Diagnosis (1) Status post total hip replacement, right: Status: Acute DS: Summary Hospital Course Hospital Course: The patient underwent a successful right total hip arthroplasty, they were transferred to PACU and then to the floor to recover. During their stay, their vitals were stable, afebrile at 97.6. Labs were unremarkable, H/H 10.3/30.4. POD 1 they were started on Aspirin 325mg po bid for DVT ppx, they also received Physical Therapy services twice a day. Prior to discharge, their dressing was clean dry and intact, and the plan was to be discharged home with VNA services. Time Attestation Discharge Coordination Time (in mins): 30 Quality: Safe Use of Opioids Does Pt have an Active Cancer Diagnosis on the Problem List?: No Quality: Stroke Does the patient have a stroke diagnosis?: No Physical Exam Vital Signs: Vital Signs: Last Vital Signs Temp 99.1 F 08/01/24 07:00 Pulse 78 08/01/24 07:00 Resp 18 08/01/24 07:00 BP 137/67 08/01/24 07:00 Pulse Ox 100 08/01/24 07:00 O2 Del Method Room Air 08/01/24 07:00 O2 Flow Rate 2.0 07/29/24 19:26 BMI result Body Mass Index 30.5 Extrem: Other: right hip dressing is c/d/i. Able to dorsi/plantar flex. Calf is supple and nontender. Sensation intact. Pedal pulse intact. DS: Data Data Completed and Pending Completed studies during hospitalization [Text1]: Pending at discharge 07/29/24 10:13 Surgical [PTH] Routine Procedures Replacement of Left Hip Joint with Ceramic on Polyethylene Synthetic Substitute, Cemented, Open Approach (06/18/23) Labs on day of discharge: Laboratory Results - last 24 hr 08/01/24 05:10 WBC 11.6 H RBC 3.37 L Hgb 10.3 L Hct 30.4 L MCV 90.2 MCH 30.6 MCHC 33.9 RDW 12.7 Plt Count 196 MPV 9.9 Immature Gran % (Auto) 0.6 H Neut % (Auto) 67.3 Lymph % (Auto) 20.4 Bucks % (Auto) 7.2 Eos % (Auto) 4.0 Baso % (Auto) 0.5 Lymph # (Auto) 2.4 Bucks # (Auto) 0.8 Eos # (Auto) 0.5 H Baso # (Auto) 0.1 Abs Immat Gran (auto) 0.07 H Absolute Neuts (auto) 7.8 Absolute Nucleated RBC 0.000 Nucleated RBC % (auto) 0.0 Sodium 140 Potassium 3.7 Chloride 105 Carbon Dioxide 27 Anion Gap 12 BUN 13 Creatinine 0.56 Estim Creat Clear Calc 78.8 Estimated GFR > 60 Fasting Glucose 97 Calcium 9.0 Discharge Plan Discharge Patient Disposition: Home Health Service Referrals: Lisha Ko PA-C [Physician Education Director] - 08/14/24 11:30 am Discharge Medications: New aspirin 325 mg Tablet 325 mg PO BID 42 Days Qty: 84 0RF celecoxib 200 mg Capsule 200 mg PO BID 30 Days Qty: 60 0RF docusate sodium 100 mg Capsule 100 mg PO BID 30 Days Qty: 60 0RF oxycodone 5 mg Tablet 5 mg PO Q4H PRN (Reason: Pain, Moderate(Pain Scale 4-6)) 7 Days Qty: 42 0RF Rx Instructions: Partial Fill upon patient request. Continued (DME) walker Misc See Rx Instructions .ROUTE .MEDSUPPLY Qty: 1 0RF Rx Instructions: Folding front wheeled walker polyethylene glycol 3350 [Miralax] 17 gram/dose Powder 17 g PO 3XW celecoxib [Celebrex] 200 mg capsule 200 mg PO DAILY acetaminophen 325 mg Tablet 650 mg PO Q6H PRN (Reason: Pain, Mild (Pain Scale 1-3)) 30 Days Qty: 240 0RF tramadol 50 mg tablet 50 mg PO Q8H amlodipine 5 mg tablet 5 mg PO DAILY Discontinued docusate sodium 100 mg capsule 100 mg PO Q OTHER DAY Discharge Orders: Discharge Order (Routine); Ordered 08/01/24 Ordered By: Lisbeth Thurston Diet: Advance to usual diet Activity on Discharge: Use cane or walker Activity Restrictions/Additional Instructions: Physical Therapy for total hip arthroplasty: posterior precautions, gait training, ROM, strength Limit stair climbing No showering, no tub bath-keep dressing clean, dry and intact No driving x6 weeks Continue anticoagulant x 6 weeks Follow up with [facility] [place] Orthopedics in 2 weeks Print Language: Armenian
[2024-08-01 09:53] VITALS: BP 137/67; PULSE 78; O2SAT 100
--- NOTE | 2024-08-01 12:10 | PC.NURSE ---
Pt DC'd home with VNA. Pt understands DC instructions, IV removed.
== END 2024-08-01 12:11 | disposition home health service (06) ==
LOC: HO.SSS 06:49 → HO.S3 12:13
PROVIDERS: Physician Assistant; PCP Internal Medicine Pulmonary Disease; Visit Provider Orthopaedic Surgery
PROC: (CPT 27130; principal; 2024-07-29 09:30)
DX: M16.11 Unilateral primary osteoarthritis, right hip (principal); M25.551 Pain in right hip; R26.2 Difficulty in walking, not elsewhere classified; R94.31 Abnormal electrocardiogram [ECG] [EKG]; J40 Bronchitis, not specified as acute or chronic; I10 Essential (primary) hypertension; L30.9 Dermatitis, unspecified; Z99.89 Dependence on other enabling machines and devices; Z96.642 Presence of left artificial hip joint; Z96.653 Presence of artificial knee joint, bilateral; Z79.899 Other long term (current) drug therapy; Z98.890 Other specified postprocedural states
CPT/HCPCS: 27130; 36415; 72170; 80048; 85025; 86850; 86900; 86901; 87640; 87641; 88304; 88305; 88311; 97110; 97116; 97162; 97166; 97530; 97535; C1776; J0131; J0690; J1100; J1171; J2003; J2405; J2704; J2795; J3010; J7120

== ENCOUNTER → 2024-07-29 06:48 | Outpatient (BNV) | payer MEDICARE, SELFPAY | PROVIDERS: PCP Internal Medicine Pulmonary Disease; Visit Provider Internal Medicine | DX: I10 Essential (primary) hypertension (principal); M16.11 Unilateral primary osteoarthritis, right hip | CPT/HCPCS: 99221 ==

== ENCOUNTER → 2024-07-29 06:48 | Outpatient (BNV) | payer MEDICARE, SELFPAY | PROVIDERS: PCP Internal Medicine Pulmonary Disease; Visit Provider Orthopaedic Surgery | DX: Z47.1 Aftercare following joint replacement surgery (principal); Z96.641 Presence of right artificial hip joint | CPT/HCPCS: 27130; 99024; G0180 ==

== ENCOUNTER 2024-08-14 11:17 | Outpatient (AMB) | payer OTHER, SELFPAY ==
--- NOTE | 2024-08-14 08:47 | MHC.OFFVIS ---
Intake Visit Reasons: 2WK PO: R JERRY w/NE 07/29/24 Intake Note: Rosibel a 79 year old female who presents today for a post operative RT JERRY, DOS 07/29/24 NE. Patient reports a lot more soreness than her previous left hip surgery. Allergies No Known Allergies Allergy (Verified 08/14/24 11:35) Medication List - Last Reconciled 08/14/24 by Lisha Ko PA-C acetaminophen 650 mg (2 x 325 mg) PO Q6H PRN 30 days amlodipine 5 mg PO DAILY aspirin 325 mg PO BID 42 days celecoxib 200 mg PO BID 30 days docusate sodium 100 mg PO BID 30 days polyethylene glycol 3350 (Miralax) 17 grams PO 3XW walker Folding front wheeled walker HPI HPI 2WK PO: R JERRY w/NE 07/29/24: Details: 79-year-old female returns to the office today status post right total hip arthroplasty with Dr. Christopher on 07/29/2024. She is ambulating with a walker. Continues to work with home PT. she has discontinued the use of the oxycodone. She still has difficulty finding a comfortable position while sleeping. [facility] Medical History Bronchitis L1 vertebral fracture History of vertebral fracture Eczema HTN (hypertension) Osteoarthritis Arthritis of left hip Surgical History (Reviewed 08/14/24 @ 11:39 by Kely Dumont COUNTS INCLUDE 234 BEDS AT THE [facility]) History of total left hip arthroplasty (06/18/23) History of Hx of colonoscopy History of back surgery History of total right knee replacement (TKR) History of total left knee replacement (TKR) Family History Mother Breast cancer Sister Dementia Leukemia Father Emphysema of lung Social History Household Members: Spouse Housing: Condominium Are you a primary gericare aide teacher to a significant other at home: No Do you presently have visiting nurse or other home services: No 75 years or older and lives alone: No Alcohol intake: current Alcohol intake frequency: holidays/special occasions only Comment: all counts correct Patient Tobacco Use Status: Never used Tobacco Substance Use Type: Marijuana service: No Current occupational status: retired Review of Systems Const All systems reviewed & are unremarkable except as noted in HPI and below Physical Exam Extrem Other: Right hip incision clean dry and intact. No erythema. Mild swelling. Calf supple nontender. Neurovascularly intact. Results Reviewed Results Reviewed: Brief Operative Note Date of Service: 07/29/24 Pre-op diagnosis: Right hip OA Post-op diagnosis: same Procedure: Right JERRY Implants: [place] Trident2 48/ 10 deg liner with Accolade2 #5 132 with +0/32 CoCr Surgeon: Suleiman Christopher MD Assessment & Plan Assessment & Plan (1) Status post total hip replacement, right: Code(s): Z96.641 - Presence of right artificial hip joint Category: Surgical Plan: Naseem removed today Steri-Strips applied. She will begin showering but no soaking or scrubbing the area. She will continue with therapy exercises to improve her glute strength and gait mechanics. No driving for another 4 weeks. She will continue with anticoagulant therapy for another 4 weeks and see us back on September [address] Christopher. Coding Level of Care Code Global (47368) Diagnoses Status post total hip replacement, right Z96.641
== END 2024-08-14 12:05 | disposition home or self-care (01) ==
PROVIDERS: PCP Internal Medicine Pulmonary Disease; Visit Provider Physician Assistant
DX: Z96.641 Presence of right artificial hip joint (principal)
CPT/HCPCS: 99024

== ENCOUNTER 2024-09-04 10:37 | Outpatient (REF) | payer OTHER, SELFPAY ==
--- NOTE | ~2024-09-04 | XR_ITS ---
EXAMINATION: XR PELVIS 1-2 VIEWS HISTORY: M25.559 - Pain in unspecified hip COMPARISON: Comparison is made with the prior examination dated 07/29/2024. FINDINGS: A single AP view of the pelvis is submitted. Patient's hands overlie the upper pelvis. The patient is status post bilateral total hip arthroplasty. The orthopedic elements are in anatomic alignment on this single AP view. No acute fracture is seen. There are old healed fractures of the left superior and inferior pubic rami. XR/XR pelvis 1-2V IMPRESSION: Status post bilateral total hip arthroplasty. Electronically signed by: Ganesh Horn MD 09/05/2024 02:31 PM JAYA
== END 2024-09-04 10:38 | disposition home or self-care (01) ==
LOC: HO.HOSX 10:37
PROVIDERS: Visit Provider Orthopaedic Surgery
DX: M25.559 Pain in unspecified hip (principal); Z96.643 Presence of artificial hip joint, bilateral
CPT/HCPCS: 72170

== ENCOUNTER 2024-09-04 11:21 | Outpatient (AMB) | payer OTHER, SELFPAY ==
--- NOTE | 2024-09-04 11:40 | MHC.OFFVIS ---
Intake Visit Reasons: PO - Right JERRY w/NE 07/29/24 Intake Note: Rosibel is a 79 year old female who presents today for a post operative visit, six weeks s/p Right JERRY 07/29/24. Patient reports that she is doing well, she does not report any pain or discomfort. Allergies No Known Allergies Allergy (Verified 09/04/24 11:42) HPI HPI PO - Right JERRY w/NE 07/29/24: Details: Rosibel is a 79 year old female who presents today for a post operative visit, six weeks s/p Right JERRY 07/29/24. Patient reports that she is doing well, she does not report any pain or discomfort. [facility] Medical History Bronchitis L1 vertebral fracture History of vertebral fracture Eczema HTN (hypertension) Osteoarthritis Arthritis of left hip Surgical History History of total left hip arthroplasty (06/18/23) History of Hx of colonoscopy History of back surgery History of total right knee replacement (TKR) History of total left knee replacement (TKR) Family History Mother Breast cancer Sister Dementia Leukemia Father Emphysema of lung Social History Household Members: [facility] Are you a primary residential care officer to a significant other at home: No Do you presently have visiting nurse or other home services: No 75 years or older and lives alone: No Alcohol intake: current Alcohol intake frequency: holidays/special occasions only Comment: all counts correct Patient Tobacco Use Status: Never used Tobacco Substance Use Type: Marijuana service: No Current occupational status: retired Physical Exam Extrem Other: Normal gait. No pain with hip range of motion. Results Reviewed Results Reviewed: I personally reviewed relevant radiographs. Right JERRY in expected post operative position with no hardware complications or evidence of loosening Assessment & Plan Assessment & Plan (1) Status post total hip replacement, right: Code(s): Z96.641 - Presence of right artificial hip joint Category: Surgical Plan: Doing well 6 weeks postop. Follow up 6 weeks. Continue PT exercises and hip precautions. Orders: Orders XR pelvis 1-2V 09/04/24 M25.559 - Pain in unspecified hip Coding Level of Care Code Global (04920) Diagnoses Status post total hip replacement, right Z96.641
--- OUTSIDE RECORDS SUMMARY | 2024-09-04 13:43 | XMS_ITS | Clinical Summary ---
Author Organization [facility] Address [address] [place] [address] Care Team Providers Care Manager Transportation Planning Name Role Phone Moses Haywood MD Primary Care Provider [phone] Allergies Active Allergy Reactions Criticality Noted Date Comments Lisinopril Other (See Comments) 12/04/2014 Pantoprazole Rash Low 08/16/2017 Pravastatin 07/02/2018 Other reaction(s): Myalgia, unspecified site Medications Medication Sig Dispensed Refills Start Date End Date Status nirmatrelvir & ritonavir (PAXLOVID) 20 x 150 MG & 10 x 100MG TBPK tablet therapy pack Take 3 tablets ( 2 of Nirmatrelvir and 1 of ritonavir) together po bid for 5 days per package directions 30 tablet 0 02/24/2022 Active amLODIPine (NORVASC) tablet 5 mg Take 1 tablet (5 mg total) by mouth daily. 0 08/23/2022 Active amoxicillin (AMOXIL) 500 MG capsule TAKE 4 CAPSULES BY MOUTH 1 HOUR BEFORE PROCEDURE 0 09/14/2022 Active azithromycin (ZITHROMAX) 250 MG tablet 0 07/26/2022 Active Biotin 10 MG TABS Take 10 mg by mouth. 0 06/23/2020 Active hydrOXYzine (ATARAX) 10 MG tablet Take 1 tablet (10 mg total) by mouth. 0 06/23/2020 Active meclizine (ANTIVERT) 25 MG tablet Take 1 tablet (25 mg total) by mouth 3 (three) times a day. 0 07/26/2022 Active naproxen (EC NAPROSYN) 500 MG EC tablet TAKE 1 TABLET BY MOUTH TWICE DAILY FOR 2 WEEKS 0 09/29/2022 Active psyllium (KONSYL) 33 % POWD Take 1.7 g by mouth. 0 06/23/2020 Acti ve methylPREDNISolone (MEDROL DOSEPACK) 4 MG tablet follow package directions 21 tablet 0 10/04/2022 Active Family History Medical History Relation Name Comments Breast cancer Maternal Grandmother Breast cancer Mother Cancer Mother Ovarian cancer Paternal Cousin Cancer Sister Relation Name Status Comments Maternal Grandmother Mother Paternal Cousin Sister Social History Tobacco Use Types Packs/Day Years Used Date Smoking Tobacco: Never Smokeless Tobacco: Never Tobacco Cessation:Counseling Given: Not Answered Alcohol Use Standard Drinks/Week Comments Yes 0 (1 standard drink = 0.6 oz pur e alcohol) Sex and Gender Information Value Date Recorded Sex Assigned at Female 06/06/2021 9:17 AM EDT Gender Identity Female 06/06/2021 9:17 AM EDT Sexual Orientation Not on file Job Start Date Occupation Industry Not on file Not on file Not on file Last Filed Vital Signs Vital Sign Reading Time Taken Comments Blood Pressure - - Pulse - - Temperature - - Respiratory Rate - - Oxygen Saturation - - Inhaled Oxygen Concentration - - Weight 81.6 kg (180 lb) 10/04/2022 1:25 PM EST Height 157.5 cm (5' 2 ) 10/04/2022 1:25 PM EST Body Mass Index 32.92 10/04/2022 1:25 PM EST Plan of Treatment Health Maintenance Due Date Last Done Comments Hepatitis C Screening 1945 COVID-19 Vaccine (#1) 1946 Depression Screening 1958 BMI Counseling 1964 Preventative Health Evaluation 1964 Shingrix-Zoster Vaccine (1 of 2) 1996 Fall Risk Assessment 2011 DTap / Tdap / Td (2 - Tdap) 10/26/2016 10/26/2006 RSV Adult > 60+ Yrs or (1 - 1-dose 75+ series) 2021 Influenza Vaccine (#1) 2024 9, 05/29/2018, 06/11/2014, Additional history exists Osteoporosis Screening (DEXA Scan) 03/05/2026 03/05/2024 Pneumococcal Vaccine Completed 05/17/2015, 03/24/20 13 Hepatitis B Vaccines Aged Out No long er eligible based on patient's age to complete this topic RSV Ped < 20 months Aged Out No longe r eligible based on patient's age to complete this topic Care Teams Manager Transportation Planning Relationship Specialty Start Date End Date Moses Haywood MD [address] [place] [address] PCP - General Pulmonary Disease 10/04/22
--- OUTSIDE RECORDS SUMMARY | 2024-09-04 13:43 | XMS_ITS | Clinical Summary ---
Author Organization [facility] [address] [facility] Address [address] [place] [address] Phone Care Team Providers Care Ticket Sorter Name Role Phone Moses Haywood MD Primary Care Provider [phone] Surgical History Surgery Date Site/Laterality Comments BACK SURGERY PROCEDURE:BACK SURGERY KNEE SURGERY PROCEDURE:KNEE SURGERY HAND SURGERY PROCEDURE:HAND SURGERY Medical History Medical History Date Comments Hypertension DX:Hypertension Family History Medical History Relation Name Comments Breast cancer Maternal Grandmother Breast cancer Mother Cancer Mother Ovarian cancer Paternal Cousin Cancer Sister Relation Name Status Comments Maternal Grandmother Mother Paternal Cousin Sister Social History Tobacco Use Types Packs/Day Years Used Date Smoking Tobacco: Never Smokeless Tobacco: Never Alcohol Use Standard Drinks/Week Comments Yes 0 (1 standard drink = 0.6 oz pur e alcohol) Sex and Gender Information Value Date Recorded Sex Assigned at Not on file Gender Identity Not on file Sexual Orientation Not on file Obstetrics History Last Filed Vital Signs Vital Sign Reading Time Taken Comments Blood Pressure - - Pulse - - Temperature - - Respiratory Rate - - Oxygen Saturation - - Inhaled Oxygen Concentration - - Weight 81.6 kg (180 lb) 11/21/2022 1:52 PM EDT Height 157.5 cm (5' 2 ) 11/21/2022 1:52 PM EDT Body Mass Index 32.92 11/21/2022 1:52 PM EDT Plan of Treatment Health Maintenance Due Date Last Done Comments Zoster Vaccines (1 of 2) 1996 RSV Immunization Patients 60+ Years Old (1 - 1-dose 75+ series) 2021 Depression Screening 07/16/2022 Falls Risk Assessment 07/16/2022 Hepatitis C Screening 07/16/2022 Medicare Annual Wellness Visit 07/16/2022 Social Influencers of Health Screening 07/16/2022 DTaP,Tdap,and Td Vaccines (3 - Td or Tdap) 03/24/2023 03/24/2013, 10/26/2006 COVID-19 Vaccine (4 - season) 2024 08/22/2022, 11/27/2020, 10/30/2020 Influenza Vaccine (#1) 2024 9, 05/29/2018, 06/11/2014, Additional history exists Hypertension/CHF/CAD Annual BMP Blood Test 07/07/2025 07/07/2024 Cholesterol Screening (Lipid Panel) 06/06/2026 06/06/2021 Osteoporosis Screening (Bone Density Screening) 03/05/2034 03/05/2024 Pneumococcal Vaccine: 65+ Years Completed 05/17/2015, 03/24/2013 HIB Vaccines Aged Out No longer eligi ble based on patient's age to complete this topic HPV Vaccines Aged Out No longer eligi ble based on patient's age to complete this topic Hepatitis A Vaccines Aged Out No long er eligible based on patient's age to complete this topic Hepatitis B Vaccines Aged Out No long er eligible based on patient's age to complete this topic IPV Vaccines Aged Out No longer eligi ble based on patient's age to complete this topic MMR Vaccines Aged Out No longer eligi ble based on patient's age to complete this topic Meningococcal ACWY Vaccine Aged Out N o longer eligible based on patient's age to complete this topic RSV Immunization Patients Under 20 months Aged Out No longer eligible based on patient's age to complete this topic Varicella Vaccines Aged Out No longer eligible based on patient's age to complete this topic Procedures Procedure Name Priority Date/Time Associated Diagnosis Comments GUERRERO URINE CULTURE TUBE Routine 07/07/2024 9:37 AM EST Preop examination URINALYSIS WITH REFLEX MICROSCOPIC AND CULTURE Routine 07/07/2024 9:37 AM EST Preop examination CBC WITH AUTO DIFFERENTIAL Routine 07/07/2024 9:37 AM EST Preop examination URINALYSIS WITH REFLEX MICROSCOPIC AND CULTURE Routine 07/07/2024 9:37 AM EST Preop examination GLUCOSE, FASTING Routine 07/07/2024 9:37 AM EST Preop examination BUN Routine 07/07/2024 9:37 AM EST Preop examination CREATININE, SERUM Routine 07/07/2024 9:3 7 AM EST Preop examination CBC AND DIFFERENTIAL Routine 07/07/2024 9:37 AM EST Preop examination ELECTROLYTE PANEL Routine 07/07/2024 9:3 7 AM EST Preop examination BONE DENSITY STUDY Routine 03/05/2024 12 :11 PM EDT Asymptomatic menopausal state Encounter for screening for osteoporosis from Last 3 Months or Most Recently Relevant to Health Maintenance Results * (ABNORMAL) Urinalysis with reflex microscopic and culture (07/07/2024 9:37 AM EST) Color, Urine Yellow Yellow, Colorless LAB URINALYSIS - AUTOMATED METHOD 07/07/2024 7:47 PM [facility] Clarity, Urine Clear Clear LAB URINALYSIS - AUTOMATED METHOD 07/07/2024 7:47 PM [facility] Specific [place] Urine 1.020 1.005 - 1.030 LAB URINALYSIS - AUTOMATED METHOD 07/07/2024 7:47 PM [facility] pH, Urine 5.0(A) 5.0 - 8.0 pH LAB URINALYSIS - AUTOMATED METHOD 07/07/2024 7:47 PM [facility] Leukocytes, Urine Negative Negative WBCs/mcL LAB URINALYSIS - AUTOMATED METHOD 07/07/2024 7:47 PM [facility] Nitrite, Urine Negative Negative LAB URINALYSIS - AUTOMATED METHOD 07/07/2024 7:47 PM [facility] Protein, Urine Negative Negative mg/dL LAB URINALYSIS - AUTOMATED METHOD 07/07/2024 7:47 PM [facility] Glucose, Urine Negative Negative mg/dL LAB URINALYSIS - AUTOMATED METHOD 07/07/2024 7:47 PM [facility] Ketones, Urine Negative Negative mg/dL LAB URINALYSIS - AUTOMATED METHOD 07/07/2024 7:47 PM [facility] Blood, Urine Negative Negative mg/dL LAB URINALYSIS - AUTOMATED METHOD 07/07/2024 7:47 PM [facility] Urine Urine specimen obtained by clean catch procedure / Unknown Non-blood Collection / Unknown 07/07/2024 9:37 AM EST 07/07/2024 3:44 PM EST Moses Haywood MD LAB URINE ORDERABLES Performing Organization Address City/[facility]/ZIP Co de Phone Number [facility] [address] [place] [address], * [place] urine culture tube (07/07/2024 9:37 AM EST) Extra Tube Hold for add-ons. 07/07/2024 7:01 PM EST [facility] Comment:Auto resulted. Urine Urine specimen obtained by clean catch procedure / Unknown Non-blood Collection / Unknown 07/07/2024 9:37 AM EST 07/07/2024 3:44 PM EST Moses Haywood MD LAB URINE ORDERABLES [facility] [address] [place] [address], [place] [phone] * CBC auto differential (07/07/2024 9:37 AM EST) WBC 7.4 4.0 - 10.5 K/[facility] LAB HEMETOLOGY METHOD 07/07/2024 2:53 PM [facility] RBC 4.48 4.20 - 5.40 M/[facility] LAB HEMETOLOGY METHOD 07/07/2024 2:53 PM [facility] Hemoglobin 14.0 12.5 - 16.0 g/dL LAB HEMETOLOGY METHOD 07/07/2024 2:53 PM [facility] Hematocrit 40.6 37.0 - 47.0 % LAB HEMETOLOGY METHOD 07/07/2024 2:53 PM [facility] MCV 90.7 78.0 - 100.0 FL LAB HEMETOLOGY METHOD 07/07/2024 2:53 PM [facility] MCH 31.2 25.0 - 33.0 pcg LAB HEMETOLOGY METHOD 07/07/2024 2:53 PM [facility] MCHC 34.4 32.0 - 36.0 g/dL LAB HEMETOLOGY METHOD 07/07/2024 2:53 PM [facility] RDW 12.9 12.1 - 16.2 % LAB HEMETOLOGY METHOD 07/07/2024 2:53 PM [facility] Platelets 227 150 - 450 K/mcL LAB HEMETOLOGY METHOD 07/07/2024 2:53 PM [facility] MPV 8.6 7.4 - 11.4 FL LAB HEMETOLOGY METHOD 07/07/2024 2:53 PM [facility] Neutrophils Relative 51.6 44.0 - 74.0 % LAB HEMETOLOGY METHOD 07/07/2024 2:53 PM [facility] Lymphocytes Relative 39.2 20.0 - 48.0 % LAB HEMETOLOGY METHOD 07/07/2024 2:53 PM [facility] Monocytes Relative 5.4 2.0 - 12.0 % LAB HEMETOLOGY METHOD 07/07/2024 2:53 PM [facility] Eosinophils Relative 3.1 0.0 - 6.0 % LAB HEMETOLOGY METHOD 07/07/2024 2:53 PM EST [facility] Basophils Relative 0.7 0.0 - 2.0 % LAB HEMETOLOGY METHOD 07/07/2024 2:53 PM EST [facility] Neutrophils Absolute 3.80 1.80 - 7.80 K/mcL LAB HEMETOLOGY METHOD 07/07/2024 2:53 PM EST [facility] Lymphocytes Absolute 2.90 1.00 - 3.20 K/mcL LAB HEMETOLOGY METHOD 07/07/2024 2:53 PM EST [facility] Monocytes Absolute 0.40 0.00 - 0.80 K/mcL LAB HEMETOLOGY METHOD 07/07/2024 2:53 PM EST [facility] Eosinophils Absolute 0.20 0.00 - 0.50 K/mcL LAB HEMETOLOGY METHOD 07/07/2024 2:53 PM EST [facility] Basophils Absolute 0.00 0.00 - 0.20 K/mcL LAB HEMETOLOGY METHOD 07/07/2024 2:53 PM EST [facility] Blood Venous blood specimen / Unknown Venipuncture / Unknown 07/07/2024 9:37 AM EST 07/07/2024 12:20 PM EST Moses Haywood MD LAB BLOOD ORDERABLES [facility] [address] [place] [address], * Creatinine (07/07/2024 9:37 AM EST) Creatinine 0.70 0.50 - 1.00 mg/dL LAB CHEMISTRY METHOD 07/07/2024 3:05 PM EST [facility] eGFR 89 >=60 mL/min/1. 73m2 LAB CHEMISTRY METHOD 07/07/2024 3:05 PM [facility] Comment:Calculation based on the??Chronic Kidney Disease Epidemiology Collaboration (CKD-EPI) equation refit??without adjustment for race. Blood Venous blood specimen / Unknown Venipuncture / Unknown 07/07/2024 9:37 AM EST 07/07/2024 12:20 PM EST Moses Haywood MD LAB BLOOD ORDERABLES Performing Organization Address City/[facility]/ZIP Co de Phone Number [facility] [address] [place] [address], * (ABNORMAL) BUN (07/07/2024 9:37 AM EST) BUN 20(H) 7 - 17 mg/dL LAB CHEMISTRY METHOD 07/07/2024 3:05 PM EST [facility] Blood Venous blood specimen / Unknown Venipuncture / Unknown 07/07/2024 9:37 AM EST 07/07/2024 12:20 PM EST Moses Haywood MD LAB BLOOD ORDERABLES Performing Organization Address City/[facility]/ZIP Co de Phone Number [facility] [address] [place] [address], * Glucose, fasting (07/07/2024 9:37 AM EST) Glucose, Fasting 86 70 - 99 mg/dL LAB CHEMISTRY METHOD 07/07/2024 3:05 PM EST [facility] Blood Venous blood specimen / Unknown Venipuncture / Unknown 07/07/2024 9:37 AM EST 07/07/2024 12:20 PM EST Moses Haywood MD LAB BLOOD ORDERABLES [facility] [address] [place] [address], [place] [phone] * Electrolyte panel (07/07/2024 9:37 AM EST) Sodium 139 135 - 145 mmol/L LAB CHEMISTRY METHOD 07/07/2024 3:05 PM [facility] Potassium 4.3 3.5 - 5.1 mmol/L LAB CHEMISTRY METHOD 07/07/2024 3:05 PM EST [facility] Chloride 103 98 - 107 mmol/L LAB CHEMISTRY METHOD 07/07/2024 3:05 PM [facility] CO2 31 24 - 32 mmol/L LAB CHEMISTRY METHOD 07/07/2024 3:05 PM EST [facility] Anion Gap 5 5 - 14 LAB CHEMISTRY METHOD 07/07/2024 3:05 PM [facility] Blood Venous blood specimen / Unknown Venipuncture / Unknown 07/07/2024 9:37 AM EST 07/07/2024 12:20 PM EST Moses Haywood MD LAB BLOOD ORDERABLES Performing Organization Address City/State/[facility] Co de Phone Number [facility] [address] [place] [address], * BONE DENSITY STUDY (03/05/2024 12:11 PM EDT) Anatomical Region Laterality Modality Bone Densitometr y 02/27/2024 2:29 PM EDT Narrative 03/05/2024 12:15 PM EDT Bone density study Indication and risk factors: Postmenopausal female. ??Screening for osteoporosis. ??No priors. Study acquired on a [employer] Spine densitometer. Imaging of the lumbar spine and hip was completed. FINDINGS: LUMBAR SPINE Averaged L1 through L4: Bone density: 1.34 g/cm2 Z score: 2.7 T score: 1.3 RIGHT HIP Right total hip: Bone density: 0.81 g/cm2 Z score: 0.0 T score: -1.6 CONCLUSION: 1. ??Lumbar spine: ??Normal bone density. 2. ??Right hip hip: ??Osteopenia. FRAX: 10 year probability of fracture based on femoral neck BMD, when considering patient's personal risk factors: Major osteoporotic fracture: 17% Hip fracture: 3% SESSION: Not applicable World Health Organization Definitions of Osteoporosis: T score at or below -1.0: Normal BMD T score between -1.0 and -2.5: Osteopenia T score at or below -2.5: Osteoporosis DEXA guidelines: Diagnosis : Treatment : Follow-up DEXA Normal BMD : Prevention : 2-3 years Osteopenia : Prevention/therapy :1-2 years Osteoporosis : Therapy : Yearly Report reviewed and signed by : Dr. Bailey Swann on 03/05/2024 12:15 PM. Workstation Name - [email or web address] Procedure Note Bailey Swann MD - 05/27/2024 Bone density study Indication and risk factors: Postmenopausal female. Screening forosteoporosis. No priors. Study acquired on a [employer] Spine densitometer. Imaging of thelumbar spine and hip was completed. FINDINGS: LUMBAR SPINE Averaged L1 through L4: Bone density: 1.34 g/cm2 Z score: 2.7 T score: 1.3 RIGHT HIP Right total hip: Bone density: 0.81 g/cm2 Z score: 0.0 T score: -1.6 CONCLUSION: 1. Lumbar spine: Normal bone density. 2. Right hip hip: Osteopenia. FRAX: 10 year probability of fracture based on femoral neck BMD, whenconsidering patient's personal risk factors: Major osteoporotic fracture: 17% Hip fracture: 3% SESSION: Not applicable World Health Organization Definitions of Osteoporosis: T score at or below -1.0: Normal BMD T score between -1.0 and -2.5: Osteopenia T score at or below -2.5: Osteoporosis DEXA guidelines: Diagnosis : Treatment : Follow-up DEXA Normal BMD : Prevention : 2-3 years Osteopenia : Prevention/therapy :1-2 years Osteoporosis : Therapy : Yearly Report reviewed and signed by : Dr. Bailey Swann on 03/05/2024 12:15 PM.Workstation Name - [employer] Moses Haywood MD IMG DXA PROCEDURES from Last 3 Months or Most Recently Relevant to Health Maintenance Care Teams Ticket Sorter Relationship Specialty Start Date End Date Moses Haywood MD [address] [place] [address] PCP - General 10/04/22
== END 2024-09-04 12:28 | disposition home or self-care (01) ==
PROVIDERS: PCP Internal Medicine Pulmonary Disease; Visit Provider Orthopaedic Surgery
DX: Z96.641 Presence of right artificial hip joint (principal)
CPT/HCPCS: 99024

== ENCOUNTER → 2024-09-04 11:35 | Outpatient (BNV) | payer OTHER, SELFPAY | PROVIDERS: Visit Provider Radiology Diagnostic Radiology | DX: M25.559 Pain in unspecified hip (principal); Z96.643 Presence of artificial hip joint, bilateral | CPT/HCPCS: 72170 ==

== ENCOUNTER 2024-10-16 13:02 | Outpatient (AMB) | payer OTHER, SELFPAY ==
--- NOTE | 2024-10-16 13:05 | MHC.OFFVIS ---
Intake Visit Reasons: PO - Right JERRY 07/29/24 Intake Note: Rosibel is a 79 year old female who presents today for a post operative appointment about 2.5 months s/p Right JERRY 07/29/24. Patient reports that she is doing very well with no pain in the hip. She has had increased right knee pain - she had a Right TKA ~15 years ago. Allergies No Known Allergies Allergy (Verified 09/04/24 11:42) HPI HPI PO - Right JERRY 07/29/24: Details: Rosibel is a 79 year old female who presents today for a post operative appointment about 2.5 months s/p Right JERRY 07/29/24. Patient reports that she is doing very well with no pain in the hip. She has had increased right knee pain - she had a Right TKA ~15 years ago. [facility] Medical History Bronchitis L1 vertebral fracture History of vertebral fracture Eczema HTN (hypertension) Osteoarthritis Arthritis of left hip Surgical History History of total left hip arthroplasty (06/18/23) History of Hx of colonoscopy History of back surgery History of total right knee replacement (TKR) History of total left knee replacement (TKR) Family History Mother Breast cancer Sister Dementia Leukemia Father Emphysema of lung Social History Household Members: [facility] Are you a primary hearing care practitioner to a significant other at home: No Do you presently have visiting nurse or other home services: No 75 years or older and lives alone: No Alcohol intake: current Alcohol intake frequency: holidays/special occasions only Comment: all counts correct Patient Tobacco Use Status: Never used Tobacco Substance Use Type: Marijuana service: No Current occupational status: retired Physical Exam Extrem Other: inc c/d/i no pain with hip ROM + Trendelenberg gait Assessment & Plan Assessment & Plan (1) Status post total hip replacement, right: Code(s): Z96.641 - Presence of right artificial hip joint Category: Surgical Plan: s/p Right JERRY doing well. Ipsilateral knee pain that is mild. Continue gait training and gentle ambulation. F/u 6 weeks Coding Level of Care Code Global (19127) Diagnoses Status post total hip replacement, right Z96.641
--- OUTSIDE RECORDS SUMMARY | 2024-10-16 15:43 | XMS_ITS | Clinical Summary ---
Author Organization [facility] [address] [facility] Address [address] [place] [address] Phone Care Team Providers Care Accounts Payables Clerk Name Role Phone Moses Haywood MD Primary Care Provider [phone] Surgical History Surgery Date Site/Laterality Comments BACK [...] drink = 0.6 oz pur e alcohol) Comments Unknown Sex and Gender Information Value Date Recorded Sex Assigned at Not on file Legal Sex Female 5:26 AM EST Gender Identity Not on file Sexual Orientation [...] (Bone Density Screening) 03/05/2034 03/05/2024 Pneumococcal Vaccine: 50+ Years Completed 05/17/2015, 03/24/2013 HIB Vaccines Aged [...] patient's age to complete this topic Meningococcal B Vacine Aged Out No lo nger eligible based on patient's age to complete this topic RSV Immunization Patients Under 20 months Aged Out No longer eligible based on patient's age to complete this topic Varicella Vaccines Aged Out No longer eligible based on patient's age to complete this topic Procedures Procedure Name Priority Date/Time Associated Diagnosis Comments CREATININE, SERUM Routine 07/07/2024 9:3 7 AM EST Preop examination BONE DENSITY STUDY Routine 03/05/2024 12 :11 PM EDT Asymptomatic menopausal state Encounter for screening for osteoporosis from Last 3 Months or Most Recently Relevant to Health Maintenance Results * Creatinine (07/07/2024 9:37 AM EST) Creatinine 0.70 0.50 - 1.00 mg/dL LAB CHEMISTRY METHOD 07/07/2024 3:05 PM EST [facility] eGFR 89 >=60 mL/min/1. 73m2 LAB CHEMISTRY METHOD 07/07/2024 3:05 PM EST [facility] Comment:Calculation based on the??Chronic Kidney Disease Epidemiology Collaboration (CKD-EPI) equation refit??without adjustment for race. Blood Venous blood specimen / Unknown Venipuncture / Unknown 07/07/2024 9:37 AM EST 07/07/2024 12:20 PM EST us Moses Haywood MD LAB BLOOD ORDERABLES Final Res ult [facility] [address] [place] [address], * BONE DENSITY STUDY (03/05/2024 12:11 PM EDT) Anatomical Region Laterality Modality Bone Densitometr y 02/27/2024 2:29 PM EDT Narrative 03/05/2024 12:15 PM EDT Bone density study Indication and risk factors: Postmenopausal female. ??Screening for osteoporosis. ??No priors. Study acquired on a [employer] densitometer. Imaging of the lumbar spine and [...] on 03/05/2024 12:15 PM. Workstation Name - [email or web address] Procedure Note Bailey Swann MD - 05/27/2024 Bone density study Indication and risk factors: Postmenopausal female. Screening forosteoporosis. No priors. Study acquired on a [employer] densitometer. Imaging of thelumbar spine and hip [...] Swann on 03/05/2024 12:15 PM.Workstation Name - [employer] Moses Haywood MD IMG DXA PROCEDURES Final Resul t from Last 3 Months or Most Recently Relevant to Health Maintenance Insurance [employer] MED[employer]ARE Care Teams Accounts Payables Clerk Relationship Specialty Start Date End Date Moses Haywood MD [address] [place] [address] [place] [address] PCP - General 10/04/22
--- OUTSIDE RECORDS SUMMARY | 2024-10-16 15:44 | XMS_ITS | Clinical Summary ---
Author Organization [facility] Address [address] [place] [address] Care Team Providers Care Laborer Filter Plant Name Role Phone Moses Haywood MD Primary Care Provider [phone] Allergies Active Allergy Reactions Criticality Noted Date [...] age to complete this topic Care Teams Laborer Filter Plant Relationship Specialty Start Date End Date Moses Haywood MD [address] [place] [address] PCP - General Pulmonary Disease 10/04/22
== END 2024-10-16 13:42 | disposition home or self-care (01) ==
PROVIDERS: PCP Internal Medicine Pulmonary Disease; Visit Provider Orthopaedic Surgery
DX: Z96.641 Presence of right artificial hip joint (principal)
CPT/HCPCS: 99024

== ENCOUNTER → 2024-10-16 13:02 | Outpatient (BNVA) | payer OTHER, SELFPAY | PROVIDERS: PCP Internal Medicine Pulmonary Disease; Visit Provider Orthopaedic Surgery ==

== ENCOUNTER 2025-02-05 10:41 | Outpatient (AMB) | payer OTHER, SELFPAY ==
--- NOTE | 2025-02-05 10:44 | A.OFFVIS_ITS ---
Intake Visit Reasons: OV - low back pain Intake Note: Rosibel is a 79 year old female who presents today for follow up of lower back pain. Patient was seen at last visit on 05/08/24 and was told that she will need to see NE. Patient was then seen by NE for Right JERRY on 10/16/24. Today patient reports that her lower back pain is now radiating down both legs. Patient states she has had back pain since 07/06 when she had her left JERRY. She noted that she was never offered an injections but she did have physical therapy for her hips. Patient states that she takes Tylenol but mild to no relief. Allergies No Known Allergies Allergy (Verified 02/05/25 10:50) Medication List - Last Reconciled 02/05/25 by Zuly Mullins MD acetaminophen 650 mg (2 x 325 mg) PO Q6H PRN 30 days amlodipine 5 mg PO DAILY walker Folding front wheeled walker HPI Comments Details: I last saw patient 05/08/2024. History of chronic L1 fracture. Found to have severe spinal stenosis L3-4 and L4-5. Saw neuro spine: The severe stenosis seen at L3-4, L4-5 is certainly something that is operable; however the patient would have to be much less functional and ideally would treat the confounding factors (hip) before we attempted a surgical intervention. She had right hip replacement by Dr. Christopher 10/16/2024. The hips are great Having pain on both back of her legs, when she turnsover in bed or when getting up from seated. It is not bad once she gets walking. Because it hurts, she notes she walks bent forward more. Tries to do exercises in the morning. No recent fall or injury. No bladder/bowel changes. No foot drop. [facility] Medical History Bronchitis L1 vertebral fracture History of vertebral fracture Eczema HTN (hypertension) Osteoarthritis Arthritis of left hip Surgical History History of total left hip arthroplasty (06/18/23) History of Hx of colonoscopy History of back surgery History of total right knee replacement (TKR) History of total left knee replacement (TKR) Family History Mother Breast cancer Sister Dementia Leukemia Father Emphysema of lung Social History Household Members: Spouse Housing: Condominium Are you a primary healthcare applications analyst to a significant other at home: No Do you presently have visiting nurse or other home services: No 75 years or older and lives alone: No Alcohol intake: current Alcohol intake frequency: holidays/special occasions only Comment: all counts correct Patient Tobacco Use Status: Never used Tobacco Substance Use Type: Marijuana service: No Current occupational status: retired Physical Exam Constitutional: Patient appears to be in no acute distress, well nourished and well developed. Patient was appropriately conversant and oriented. Good historian. MSK/Neurological: No pinpoint tenderness over spinous processes. Reflexes symmetric. Salazar?s negative bilaterally. Babinski was down going bilaterally. Clonus was negative. Gait is antalgic without loss of balance, using cane. Results Reviewed Results Reviewed: EXAMINATION: 02/07/2024 XR LUMBOSACRAL SPINE CLINICAL INFORMATION: Dorsalgia COMPARISON: None available. TECHNIQUE: Three views of the lumbosacral spine. FINDINGS: Bones are osteopenic. Mild leftward curvature of the spine. There is severe compression deformity of L1 vertebral body. This of indeterminate age. Grade 1 anterolisthesis of L4 on L5. Multilevel disc degenerative changes, with disc height loss, endplate osteophytes in the visualized lower thoracic and the lumbar spine. Bilateral SI joint arthritis. Left hip arthroplasty is partially imaged. Prominent vascular calcification. Nonobstructive bowel gas pattern. Study is assigned for dictation on February 22, 2024 XR/XR lumbar spine 2-3V IMPRESSION: Severe compression deformity/fracture of the L1 vertebral body. This of indeterminate age. Clinically correlate, correlate with prior imaging. Further evaluation with MRI as clinically indicated. Grade 1 anterolisthesis of L4 on L5. Multilevel moderate spondylosis in the visualized spine. Reviewed notes from: Ortho Neuro spine Assessment & Plan Assessment & Plan (1) Lumbar spinal stenosis: Code(s): M48.061 - Spinal stenosis, lumbar region without neurogenic claudication Category: Medical Qualifiers: Neurogenic claudication status: with neurogenic claudication Qualified Code(s): M48.062 - Spinal stenosis, lumbar region with neurogenic claudication Plan Fairly healthy 79-year-old who continue to have claudication symptoms from severe lumbar spinal stenosis. Fortunately no neurologic deficits at this time. But this pain prevents her from being fully functional. She did recover well from previous hip replacements. Now considering minimally invasive lumbar surgery. Referring back to neuro spine. Assessment and plan discussed with patient, and patient was agreeable. All questions were answered thoroughly. Total of 30 minutes spent today including chart review, results review, history taking, physical examination, discussion of assessment and plan, and coordination of care. Zuly Mullins MD, JUAN Board Certified, [place] Board of Physical Medicine and Rehabilitation (ABPMR) Board Certified, [place] Board of Electrodiagnostic Medicine (ABEM) Orders: Referrals Neurosurgery Referral M48.062 - Spinal stenosis, lumbar region with neurogenic claudication Coding Level of Care Code Est Pt Level 4 (94083) Diagnoses Spinal stenosis of lumbar region with neurogenic claudication M48.062 Neurogenic claudication status: with neurogenic claudication
--- OUTSIDE RECORDS SUMMARY | 2025-02-05 12:32 | XMS_ITS ---
Author Name [facility] Organization Unknown Encounters Encounter Type Encounter Reason Primary Diagnosis Location Date Ambulatory [facility] [place] 10/30/2022 Ambulatory [facility] 10/30/2022
== END 2025-02-05 12:12 | disposition home or self-care (01) ==
LOC: HO.HOS 10:41
PROVIDERS: PCP Internal Medicine Pulmonary Disease; Visit Provider Physical Medicine & Rehabilitation
DX: M48.062 Spinal stenosis, lumbar region with neurogenic claudication (principal)
CPT/HCPCS: 99214

== ENCOUNTER 2025-03-13 13:12 | Outpatient (AMB) | payer OTHER, SELFPAY ==
--- OUTSIDE RECORDS SUMMARY | 2025-03-13 13:15 | XMS_ITS | Clinical Summary ---
Author Organization [facility] Address [address] [place] [address] Care Team Providers Care Utility Worker Roller Shop Name Role Phone Moses Haywood MD Primary Care Provider [phone] Allergies Active Allergy Reactions Criticality Noted Date [...] 1-dose 75+ series) 2021 Influenza Vaccine (#1) 2025 9, 05/29/2018, 06/11/2014, Additional history exists Osteoporosis Screening (DEXA Scan) 03/05/2026 03/05/2024 Pneumococcal Vaccine Completed 05/17/2015, 03/24/20 13 Hepatitis B Vaccines Aged Out No long er eligible based on patient's age to complete this topic RSV Ped < 20 months Aged Out No longe r eligible based on patient's age to complete this topic Care Teams Utility Worker Roller Shop Relationship Specialty Start Date End Date Moses Haywood MD [address] [place] [address] PCP - General Pulmonary Disease 10/04/22
--- OUTSIDE RECORDS SUMMARY | 2025-03-13 13:15 | XMS_ITS ---
Author Name [facility] Organization Unknown Encounters Encounter Type Encounter Reason Primary Diagnosis Location Date Ambulatory [facility] [place] 10/30/2022 Ambulatory [facility] [place] 10/30/2022
--- OUTSIDE RECORDS SUMMARY | 2025-03-13 13:15 | XMS_ITS | Clinical Summary ---
Author Organization [facility] [address] [facility] Address [address] [place] [address] Phone Care Team Providers Care Edger Machine Setter Name Role Phone Moses Haywood MD Primary Care Provider [phone] Surgical History Surgery Date Site/Laterality Comments BACK [...] Vaccines (1 of 2) 1996 RSV Immunization Adult Patients (1 - 1-dose 75+ series) 2021 Falls Risk Assessment 07/16/2022 Hepatitis C Screening 07/16/2022 Medicare Annual Wellness Visit 07/16/2022 Social Influencers of Health Screening 07/16/2022 DTaP,Tdap,and Td Vaccines (3 - Td or Tdap) 03/24/2023 03/24/2013, 10/26/2006 COVID-19 Vaccine (4 - 2023- season) 2024 08/22/2022, 11/27/2020, 10/30/2020 Depression Screening 08/13/2024 Influenza Vaccine (#1) 2025 9, 05/29/2018, 06/11/2014, Additional history exists Hypertension/CHF/CAD [...] age to complete this topic Meningococcal B Vaccine Aged Out No l onger eligible based on patient's age to complete [...] LAB CHEMISTRY METHOD 07/07/2024 3:05 PM EST [facility] eGFR 89 >=60 mL/min/1. 73m2 LAB CHEMISTRY METHOD 07/07/2024 3:05 PM EST [facility] Comment:Calculation based on the Chronic Kidney Disease Epidemiology Collaboration (CKD-EPI) equation refit without adjustment for race. Blood Venous blood specimen / Unknown Venipuncture / Unknown 07/07/2024 9:37 AM EST 07/07/2024 12:20 PM EST us Moses Haywood MD LAB BLOOD ORDERABLES Final Res ult [facility] [address] [place] [address], * BONE DENSITY STUDY (03/05/2024 12:11 PM EDT) Anatomical Region Laterality Modality Bone Densitometr y 02/27/2024 2:29 PM EDT Narrative 03/05/2024 12:15 PM EDT Bone density study Indication and risk factors: Postmenopausal female. Screening for osteoporosis. No priors. Study acquired on a [employer] densitometer. Imaging of the lumbar spine and [...] on 03/05/2024 12:15 PM. Workstation Name - [id number] Procedure Note Bailey Swann MD - 05/27/2024 Bone density study Indication and risk factors: Postmenopausal female. Screening forosteoporosis. No priors. Study acquired on a [employer] densitometer. Imaging of thelumbar spine and hip [...] Swann on 03/05/2024 12:15 PM.Workstation Name - [email or web address] Moses Haywood MD IMG DXA PROCEDURES Final Resul t from Last 3 Months or Most Recently Relevant to Health Maintenance Insurance [employer] [place] [address] Care Teams Edger Machine Setter Relationship Specialty Start Date End Date Moses Haywood MD [address] [place] [address] [place] [address] PCP - General 10/04/22
--- NOTE | 2025-03-13 13:38 | A.SPINEOV_ITS ---
Intake Visit Reasons: discuss surgery Intake Note: Ms. Cormier is here today to Discuss Surgery. Funeral Home Attendant Required: No Allergies No Known Allergies Allergy (Verified 03/13/25 13:38) Assessment & Plan Assessment & Plan (1) Lumbar stenosis with neurogenic claudication: Code(s): M48.062 - Spinal stenosis, lumbar region with neurogenic claudication Category: Medical Plan Dear colleague, On 03/13/2025 I saw Tawana Cormier for symptoms of neurogenic claudication. She was seen in March 2024 in our office with similar complaints. She was also having right hip pathology and she was advised to undergo a right hip replacement 1st before considering decompression of the lumbar spine. She has come back today stating that she can not walk or stand. Sitting down laying down or leaning forward improves her symptoms. The symptoms radiate into her buttocks down to the outside of her ankles. The symptoms are debilitating. She is taking Celebrex and Tylenol. We reviewed the MRI of the lumbar spine of 2023 that shows severe L4-5 spinal stenosis, [id number] L3-4 spinal stenosis and mild L2-3 spinal stenosis. In summary, this patient is suffering from neurogenic claudication due to spinal stenosis L3-4 and L4-5. There is a minimal spondylolisthesis L4-5 that is stable on x-rays. Therefore I recommended a two-level lumbar decompression. She is tentatively scheduled for 04/28/2025. I spent 30 minutes in his visit to review imaging and discussing plan of care. Con Celaya MD, PhD Spine Fellowship Trained Neurosurgeon Director, [facility] Coding Level of Care Code Est Pt Level 4 (36138) Diagnoses Lumbar stenosis with neurogenic claudication M48.062
== END 2025-03-13 14:45 | disposition home or self-care (01) ==
LOC: HO.HNS 13:13
PROVIDERS: PCP Internal Medicine Pulmonary Disease; Visit Provider Neurological Surgery
DX: M48.062 Spinal stenosis, lumbar region with neurogenic claudication (principal)
CPT/HCPCS: 99214

== ENCOUNTER 2025-04-28 11:34 | Day surgery (SDC) | payer MEDICARE, SELFPAY ==
--- OUTSIDE RECORDS SUMMARY | 2025-04-22 14:12 | XMS_ITS | Clinical Summary ---
Author Organization [facility] Address [address] [place] [address] Care Team Providers Care Sole Cementer Name Role Phone Moses Haywood MD Primary Care Provider [phone] Allergies Active Allergy Reactions Criticality Noted Date [...] age to complete this topic Care Teams Sole Cementer Relationship Specialty Start Date End Date Moses Haywood MD [address] [place] [address] PCP - General Pulmonary Disease 10/04/22
--- OUTSIDE RECORDS SUMMARY | 2025-04-22 14:12 | XMS_ITS | Clinical Summary ---
Author Organization [facility] [address] [facility] Address [address] [place] [address] Phone Care Team Providers Care Deck Engineer Name Role Phone Moses Haywood MD Primary Care Provider [phone] Surgical History Surgery Date Site/Laterality Comments BACK [...] - Td or Tdap) 03/24/2023 03/24/2013, 10/26/2006 Depression Screening 08/13/2024 COVID-19 Vaccine (4 - season) 2025 08/22/2022, 11/27/2020, 10/30/2020 Influenza Vaccine (#1) 2025 9, 05/29/2018, 06/11/2014, [...] LAB CHEMISTRY METHOD 07/07/2024 3:05 PM EST [facility] eGFR 89 >=60 mL/min/1. 73m2 LAB CHEMISTRY METHOD 07/07/2024 3:05 PM EST [facility] Comment:Calculation based on the Chronic Kidney Disease Epidemiology Collaboration (CKD-EPI) equation refit without adjustment for race. Blood Venous blood specimen / Unknown Venipuncture / Unknown 07/07/2024 9:37 AM EST 07/07/2024 12:20 PM EST us Moses Haywood MD LAB BLOOD ORDERABLES Final Res ult [facility] [address] [place] [address], * BONE DENSITY STUDY (03/05/2024 12:11 PM EDT) Anatomical Region Laterality Modality Bone Densitometr y 02/27/2024 2:29 PM EDT Narrative 03/05/2024 12:15 PM EDT Bone density study Indication and risk factors: Postmenopausal female. Screening for osteoporosis. No priors. Study acquired on a [employer] densitometer. Imaging of the lumbar spine and [...] on 03/05/2024 12:15 PM. Workstation Name - [employer] Procedure Note Bailey Swann MD - 05/27/2024 Bone density study Indication and risk factors: Postmenopausal female. Screening forosteoporosis. No priors. Study acquired on a [employer] densitometer. Imaging of thelumbar spine and hip [...] Swann on 03/05/2024 12:15 PM.Workstation Name - [employer] Moses Haywood MD IMG DXA PROCEDURES Final Resul t from Last 3 Months or Most Recently Relevant to Health Maintenance Insurance [employer] MED[employer] Care Teams Deck Engineer Relationship Specialty Start Date End Date Moses Haywood MD [address] [place] [address] [place] [address] PCP - General 10/04/22
[2025-04-23 12:18] VITALS: BP 144/74; PULSE 64; RESP 18; O2SAT 98; BMI 32.5
--- NOTE | 2025-04-23 12:30 | HO.ANESPROP2 ---
Documented by User: Concha Vidales NP 04/23/25 12:42 HPI - Anesthesia Eval Consult details Narrative: 80yo F for L2-3, L3-4 Decompression, 04/28/25 s/p JERRY 06/2024 with GA-ETT 7 - no anesthetic issues - medically and cardiac optimized prior and no change in health status since No recent illness No CP/SOB within limits of pain PMFSH Active Problems Active Problems: All Active Problems (Updated 04/23/25 @ 12:15 by Evelyne Cavazos RN) Lumbar stenosis with neurogenic claudication (Acute) Status post total hip replacement, right (Acute) Primary osteoarthritis of right hip (Acute) Abnormal EKG (Acute) Preoperative cardiovascular examination (Acute) Lumbar spinal stenosis (Acute) History of vertebral fracture (Acute) Left hip pain (Acute) Fracture of left inferior pubic ramus (Acute ~08/22/23) Fracture of left superior pubic ramus (Acute ~08/22/23) L1 vertebral fracture (Acute) History of total left hip arthroplasty (Acute 06/18/23) Past Medical History Medical History Arthritis L1 vertebral fracture Eczema HTN (hypertension) Osteoarthritis Family History Family History Mother Breast cancer Sister Dementia Leukemia Father Emphysema of lung Family history of problems with anesthesia: No Surgical History Surgical History History of total right hip replacement History of total left hip arthroplasty (06/18/23) History of Hx of colonoscopy History of back surgery History of total right knee replacement (TKR) History of total left knee replacement (TKR) History of Problems with Anesthesia: No Social History Social History Household Members: Spouse Housing: Condominium Are you a primary healthcare network pricing consultant to a significant other at home: No Do you presently have visiting nurse or other home services: No Alcohol intake: current Alcohol intake frequency: holidays/special occasions only Comment: all counts correct Patient Tobacco Use Status: Never used Tobacco Use of substances other than those prescribed or required for medical reasons: No Substance Use Type: Marijuana Have you been hit, kicked, punched, or otherwise hurt by someone within the past year? If so, by whom?: No Spiritual Healthcare Practices: no Pentecostal Healthcare Practices: no Cultural Healthcare Practices: no Are you DNR?: No Advance Directives: No Advance Directives Information Provided: Yes Advance Directives on File: Yes Advance Directives Date on File: 06/21/23 FDLMP: n/a Poor oral hygiene: No (upper partial / one crown) service: No Current occupational status: retired [employer] Allergies Allergy/AdvReac Type Severity Reaction Status Date / Time No Known Allergies Allergy Verified 03/13/25 13:38 Home Medications ?Medication ?Instructions ?Recorded ?Confirmed ?Last Taken ?Type amlodipine 5 mg tablet 5 mg PO QAM 05/03/23 04/28/25 04/28/25 08:00 History acetaminophen 650 mg 650 mg PO Q12H 04/23/25 04/23/25 Unknown History tablet,extended release celecoxib 200 mg capsule 200 mg PO DAILY pain 04/23/25 04/23/25 04/23/25 08:00 History multivitamin 1 tab PO QAM 04/23/25 04/23/25 Unknown History Exam Height,Weight and Vital Signs: Height 5 ft 2 in Weight 80.5 kg Last Vital Signs Pulse 64 04/23/25 12:18 Resp 18 04/23/25 12:18 BP 144/74 H 04/23/25 12:18 Pulse Ox 98 04/23/25 12:18 O2 Del Method Room Air 04/23/25 12:18 Pertinent Lab Results Pertinent Lab Results: CBC and BMP 06/2024 from outside facility WNL Narrative Narrative: EKG 06/2024 Details: EKG with underlying sinus rhythm at 71/Min; low-voltage QRS complexes; nonspecific ST-T changes in the anterior leads as well as inferior leads. Normal UT and corrected QT. ECHO 07/2024 Conclusions: - The left ventricular systolic function is normal. The calculated ejection fraction is 59% by biplane method. - No obvious valvular pathology seen on this study. Airway Mallampati Class: II TM Dist: >3cm Neck ROM: Full Partial: Upper Heart: RRR Lungs: CTAB Assessment and Plan Assessment Anesthesia Assessment: Anesthesia Plan Discussed and PAT Visit Final Anesthetic Review Family History of Problems with Anesthesia: No History of Problems with Anesthesia: No Documented by User: Selina Chauhan MD 04/28/25 14:08 PMFSH Past Medical History Medical History Arthritis L1 vertebral fracture Eczema HTN (hypertension) Osteoarthritis Family History Family History Mother Breast cancer Sister Dementia Leukemia Father Emphysema of lung Surgical History Surgical History History of total right hip replacement History of total left hip arthroplasty (06/18/23) History of Hx of colonoscopy History of back surgery History of total right knee replacement (TKR) History of total left knee replacement (TKR) Social History Social History Household Members: Spouse [facility] Are you a primary healthcare network pricing consultant to a significant other at home: No Do you presently have visiting nurse or other home services: No Alcohol intake: current Alcohol intake frequency: holidays/special occasions only Comment: all counts correct Patient Tobacco Use Status: Never used Tobacco Use of substances other than those prescribed or required for medical reasons: No Substance Use Type: Marijuana Have you been hit, kicked, punched, or otherwise hurt by someone within the past year? If so, by whom?: No Spiritual Healthcare Practices: no Pentecostal Healthcare Practices: no Cultural Healthcare Practices: no Are you DNR?: No Advance Directives: No Advance Directives Information Provided: Yes Advance Directives on File: Yes Advance Directives Date on File: 06/21/23 FDLMP: n/a Poor oral hygiene: No (upper partial / one crown) service: No Current occupational status: retired Meds Allergies Allergy/AdvReac Type Severity Reaction Status Date / Time No Known Allergies Allergy Verified 03/13/25 13:38 Home Medications ?Medication ?Instructions ?Recorded ?Confirmed ?Last Taken ?Type amlodipine 5 mg tablet 5 mg PO QAM 05/03/23 04/28/25 04/28/25 08:00 History acetaminophen 650 mg 650 mg PO Q12H 04/23/25 04/23/25 Unknown History tablet,extended release celecoxib 200 mg capsule 200 mg PO DAILY pain 04/23/25 04/23/25 04/23/25 08:00 History multivitamin 1 tab PO QAM 04/23/25 04/23/25 Unknown History Assessment and Plan Final Anesthetic Review NPO: Yes ASA Class: III Final Preanesthetic Review: No Changes in Pt Med Stat, Meds/Allgs Chart Reviewed, Consent Obtained/Reviewed and Anes Risks/Benef Reviewed Patient Risk: Intermediate Procedure Risk: Intermediate Anesthetic Plan Anesthetic Plan: GA Disposition: Standard PACU
[2025-04-28] VITALS (9 sets, daily range): BP systolic 125–145; BP diastolic 62–79; PULSE 68–89; RESP 12–17; TEMP 36.1–37; O2SAT 96–99
--- NOTE | ~2025-04-28 | FL_ITS ---
EXAMINATION: FL GUIDANCE ONLY HISTORY: L3-4, L4-5 Decompression COMPARISON: None available. TECHNIQUE: Fluoroscopy time: 3.8 seconds. Cumulative Dose: 3.8939 mGy. DAP: 1.4714 mGym2 Images: 1. FINDINGS: A single fluoroscopic spot film of the lumbar spine in the lateral projection demonstrates a probe directed toward the L4-5 intervertebral disc space from a posterior approach. FL/FL guidance in OR IMPRESSION: Fluoroscopy during procedure. Please see procedure report for additional information. Electronically signed by: Ganesh Horn MD 04/28/2025 03:53 PM EDT
[2025-04-28] MEDS: Lactated Ringers 1,000 ML 100 ML IVCONT (12:30)
--- NOTE | 2025-04-28 13:36 | MHC.SHP ---
Pre-Procedural Eval Section A - 24 Hr Update-Section A only Date of Service: 04/28/25 The patient is an INPATIENT: No Section B - Complete if H&P > 30 days Chief Complaint: Spinal stenosis, lumbar region with neurogenic Details of Present Illness: Bilateral leg pain Allergies: Allergies Allergy/AdvReac Type Severity Reaction Status Date / Time No Known Allergies Allergy Verified 03/13/25 13:38 Review of Systems Sugical H&P ROS: Negative: Constitution, Cardiovascular, Respiratory, Neurological, Psychiatric, Hem-Onc, Allergic/Immunologic, Gastrointestinal, Genitourinary, Musculoskeletal, Integumentary, Endocrine and Eyes/Ears/Nose/Throat Exam Surgical H&P Exam: Normal: HEENT, Normal: Heart, Normal: Lungs, Normal: Extremities, Normal: Abdomen, Normal: Skin and Normal: Neurological (Wake, alert) Plan Diagnosis/Plan: Unchanged I have reviewed the history and physical and performed a pertinent physical examination on my patient. No changes have occurred unless specified. Lumbar decompression L3-4, L4-5 Time Spent With Patient Time: Total time managing care of this patient today __5__ minutes.
--- NOTE | 2025-04-28 16:04 | W.PM.OPN ---
Operative Note Operative Note Date of Service: 04/28/25 Narrative: Preoperative Diagnosis: L3-4, L4-5 spinal stenosis/lateral recess stenosis/neural foraminal stenosis Operation: L3-4, L4-5 Laminotomy, Partial facetectomy and foraminotomy with use of microscope Consent Informed Consent was obtained for this operation. I have explained the nature, purpose and benefits of the operation. I have discussed the risks and benefit of the operation including possible complications or adverse events with patient/family. Alternative(s) were discussed with the patient with their relative benefits and risks as well as the consequences of not accepting the operation were included in obtaining consent. Surgeon: WING HANSON MD, PHD Procedure Assisted By: Brodie Duran Description of Procedure This patient is suffering from neurogenic claudication due to spinal stenosis at L3-4 and L4-5. There is a grade 1 L4-5 spondylolisthesis that is stable with a dynamic x-rays and therefore resumed a decompression appropriate.. The patient was offered a decompression. The procedure complications were explained. The patient was consented. The patient was brought to the operating room and endotracheally intubated. The patient was turned in prone position on the Ed frame. Prep and drape was done followed by timeout. The Physician assistant store director provided access. A mid lumbar incision was made followed by release of the paravertebral muscle on the right side to expose the L3-L5 lamina and facet joints. An intraoperative x-ray was obtained to confirm the correct level. The microscope was brought in. I took over the procedure. The high-speed drill was used to do a L3-4 laminotomy until flavum ligament was reached. A #2 Kerrison was used to expand the laminotomy near flush to the pedicles and to include a partial facetectomy. The flavum ligament was opened and resected with a #3 Kerrison to decompress the underlying thecal sac. The flavum ligament was removed to decompress the lateral recess and the exiting L4 nerve root. The patient was turned contralaterally. Spinous process was undercut and and this way I was able to retrieve flavum ligament contralaterally to decompress the contralateral side. A long nerve hook could be easily passed along the medial side of the pedicle as a sign of adequate decompression. A similar procedure was done for the L4-5 interspace. Again significant stenosis was encountered. Hypertrophied flavum ligament was resected to decompress the thecal sac and exiting nerve root. Spinous process was undercut and the contralateral side was decompressed. Hemostasis was done. The microscope was removed. Hemostasis was done again. The physician assistant store director close the incision in 2 layers. Steri-Strips were used to approximate incision. An OpSite with Tegaderm was used to cover the incision. All sponge needle counts were correct. Patient was extubated and transported in stable is to recovery room. Anesthesia: General Estimated Blood Loss (ml): 15 Complications: None Duration of Surgery: Under 60 Minutes Postoperative Plan: Discharge to home
--- NOTE | 2025-04-28 16:16 | P.DS_ITS ---
DS: Providers Provider Date of Service: 04/28/25 Date of discharge: 04/28/25 Primary care physician: Moses Haywood MD Admitting clinician: Con Celaya DS: Diagnosis Discharge Diagnosis (1) Lumbar stenosis with neurogenic claudication: Status: Acute DS: Summary Time Attestation Discharge Coordination Time (in mins): 5 Quality: Safe Use of Opioids Does Pt have an Active Cancer Diagnosis on the Problem List?: No Quality: Stroke Does the patient have a stroke diagnosis?: No Physical Exam Vital Signs: Vital Signs: Last Vital Signs Temp 98.6 F 04/28/25 12:30 Pulse 68 04/28/25 12:30 Resp 16 04/28/25 12:30 BP 145/79 H 04/28/25 12:30 Pulse Ox 98 04/28/25 12:30 O2 Del Method Room Air 04/28/25 12:30 BMI result Body Mass Index 32.5 DS: Data Data Completed and Pending Completed studies during hospitalization [Text1]: Procedures Replacement of Left Hip Joint with Ceramic on Polyethylene Synthetic Substitute, Cemented, Open Approach (06/18/23) Discharge Plan Discharge Patient Disposition: Home, Self-Care Referrals: Moses Haywood MD [Primary Care Provider, Internal Medicine] - 1 Week Discharge Medications: New oxycodone 5 mg tablet 5 mg PO Q6H PRN (Reason: pain) Qty: 14 0RF Rx Instructions: Partial Fill upon patient request. docusate sodium [Colace] 100 mg capsule 100 mg PO BID Qty: 20 0RF Continued (DME) walker Misc See Rx Instructions .ROUTE .MEDSUPPLY Qty: 1 0RF Rx Instructions: Folding front wheeled walker celecoxib 200 mg capsule 200 mg PO DAILY acetaminophen 650 mg Tablet Extended Release 650 mg PO Q12H multivitamin Tablet 1 tab PO QAM amlodipine 5 mg tablet 5 mg PO QAM Discharge Orders: Discharge Order (Routine); Ordered 04/28/25 Ordered By: Brodie Dumont Diet: Advance to usual diet Activity on Discharge: As tolerated Activity Restrictions/Additional Instructions: After your spinal surgery we ask you to observe the following restrictions/guidelines: Activity: It is normal to feel some discomfort as you increase your activity, but that will improve with time. We ask you avoid heavy lifting or acitivities that cause pain. As a general rule, 8lbs is a safe limit for lifting right after surgery. Walk as much as you feel comfortable but not to exhaustion. You will feel extra tired the first few days after surgery. Stay well hydrated. It is OK to walk up and down stairs You may return to driving when you are off narcotics (such as vicodin, oxycodone, dilaudid, etc), and you are back to normal functional capacity. If you have any concerns please check with office before driving. Return to work is specific to each patient and each surgery, so please speak with your doctor/PA at first follow up. Please bring paperwork such as FMLA at that time if you need it filled out. Medications: For optimum pain control, it is best to start with a combination of 500 mg of Tylenol every 4 hours with 600 mg of Motrin every 8 hours, and use narcotics as needed in between for breakthrough pain. We will give you a short supply of narcotics after surgery (usually one weeks worth). If you need more please call the office but do not use more than prescr ibed. You will need to give our office 48 hours notice if you need narcotics refilled and we do not fill narcotics on weekends or evenings. If you are on a narcotic, it is a good idea to take a stool softener such as colace or senna to avoid constipation If you take blood thinner such as aspirin, Plavix, Coumadin, Effient, Eliquis etc for conditions such as Afib, DVT, Pulmonary embolus, coronary disease, stents etc please speak with your surgeon about specific details as to when you can resume these medications. Follow up: Please call the office, , after surgery to arrange a 3 week follow up for wound check. Wound Care: You may remove your dressing on the first day after surgery. ?You may ?leave open to air. Please do not remove the steri strips underneath. they will fall off on their own in one week. IT IS NORMAL FOR THE WOUND TO OOZE OR BE BLOODY FOR A FEW DAYS AFTER SURGERY. ?IF THIS HAPPENS JUST PLACE NEW DRESSING OVER IT TO AVOID STAINING CLOTHES. You may shower on post op day # 1 We ask that you do not let the water soak the wound. If it does get wet, just towel dry lightly. Please do not scrub your incision or place any type of chemical/ointment on the wound. No tub baths, pools or jacuzzis for one month. If you have any leaking or redness from your wound, or fevers, please call office Print Language: Citizen Of [place]
[2025-04-28] MEDS: oxyCODONE HCl Immed Release 5 MG TABLET PO (16:50)
== END 2025-04-28 17:21 | disposition home or self-care (01) ==
PROVIDERS: PCP Internal Medicine Pulmonary Disease; Visit Provider Neurological Surgery
PROC: (CPT 63047; principal; 2025-04-28 14:10)
DX: M48.062 Spinal stenosis, lumbar region with neurogenic claudication (principal); M43.16 Spondylolisthesis, lumbar region; M79.605 Pain in left leg; M79.604 Pain in right leg; Z79.899 Other long term (current) drug therapy
CPT/HCPCS: 63047; J0131; J0690; J1100; J1171; J1885; J2003; J2405; J2704; J3010

== ENCOUNTER → 2025-04-28 11:34 | Outpatient (BNV) | payer MEDICARE, SELFPAY | PROVIDERS: PCP Internal Medicine Pulmonary Disease; Visit Provider Neurological Surgery | DX: M48.062 Spinal stenosis, lumbar region with neurogenic claudication (principal) | CPT/HCPCS: 63047; 63048; 99499 ==

== ENCOUNTER 2025-05-13 08:53 | Outpatient (REF) | payer MEDICARE, SELFPAY ==
--- NOTE | ~2025-05-13 | XR_ITS ---
EXAMINATION: XR LUMBAR SPINE 4 OR MORE VIEWS HISTORY: Z98.890 - Other specified postprocedural states COMPARISON: Comparison is made with the prior examination dated 02/07/2024. FINDINGS: AP, and neutral, flexion, and extension lateral views of the lumbar spine are submitted. The bones are osteopenic. Again seen is a severe compression deformity of L1. The remaining vertebral bodies maintain normal height. There is grade I spondylolisthesis of L4 on L5. This does not change with flexion or extension. There is mild to moderate degenerative disc disease with disc space narrowing and osteophyte formation. There is degenerative change of the posterior elements. The patient is status post bilateral total hip arthroplasty. There is an old healed fracture deformity of the pubic symphysis. XR/XR lumbar spine 4V min IMPRESSION: 1. Severe compression deformity of L1 without change. 2. Grade I spondylolisthesis of L4 on L5 without change with flexion or extension. Electronically signed by: Ganesh Horn MD 05/13/2025 03:04 PM EDT
--- OUTSIDE RECORDS SUMMARY | 2025-05-13 09:33 | XMS_ITS | Clinical Summary ---
Author Organization [facility] Address [address] [place] [address] Care Team Providers Care Parts Specialist Name Role Phone Moses Haywood MD Primary Care Provider [phone] Allergies Active Allergy Reactions Criticality Noted Date [...] age to complete this topic Care Teams Parts Specialist Relationship Specialty Start Date End Date Moses Haywood MD [address] [place] [address] PCP - General Pulmonary Disease 10/04/22
--- OUTSIDE RECORDS SUMMARY | 2025-05-13 09:33 | XMS_ITS | Clinical Summary ---
Author Organization [facility] [address] [facility] Address [address] [place] [address] Phone Care Team Providers Care Electrician Chief Name Role Phone Moses Haywood MD Primary Care Provider [phone] Surgical History Surgery Date Site/Laterality Comments BACK [...] LAB CHEMISTRY METHOD 07/07/2024 3:05 PM EST [facility] eGFR 89 >=60 mL/min/1. 73m2 LAB CHEMISTRY METHOD 07/07/2024 3:05 PM EST [facility] Comment:Calculation based on the Chronic Kidney Disease Epidemiology Collaboration (CKD-EPI) equation refit without adjustment for race. Blood Venous blood specimen / Unknown Venipuncture / Unknown 07/07/2024 9:37 AM EST 07/07/2024 12:20 PM EST us Moses Haywood MD LAB BLOOD ORDERABLES Final Res ult [facility] [address] [place] [address], * BONE DENSITY STUDY (03/05/2024 12:11 PM EDT) Anatomical Region Laterality Modality Bone Densitometr y 02/27/2024 2:29 PM EDT Narrative 03/05/2024 12:15 PM EDT Bone density study Indication and risk factors: Postmenopausal female. Screening for osteoporosis. No priors. Study acquired on a Hi-Dis(Mosen) densitometer. Imaging of the lumbar spine and [...] on 03/05/2024 12:15 PM. Workstation Name - [id number] Procedure Note Bailey Swann MD - 05/27/2024 Bone density study Indication and risk factors: Postmenopausal female. Screening forosteoporosis. No priors. Study acquired on a Hi-Dis(Mosen) densitometer. Imaging of thelumbar spine and hip [...] Swann on 03/05/2024 12:15 PM.Workstation Name - [email or web address] Moses Haywood MD IMG DXA PROCEDURES Final Resul t from Last 3 Months or Most Recently Relevant to Health Maintenance Insurance [employer] MEDICARE Care Teams Electrician Chief Relationship Specialty Start Date End Date Moses Haywood MD [address] [place] [address] [place] [address] PCP - General 10/04/22
== END 2025-05-13 08:54 | disposition home or self-care (01) ==
LOC: HO.HOSX 08:53
PROVIDERS: Visit Provider Physician Assistant
DX: Z47.89 Encounter for other orthopedic aftercare (principal); M54.50 Low back pain, unspecified; Z98.890 Other specified postprocedural states
CPT/HCPCS: 72110; 99212

== ENCOUNTER 2025-05-13 14:08 | Outpatient (AMB) | payer MEDICARE, SELFPAY ==
--- NOTE | 2025-05-13 14:32 | A.SPINEOV_ITS ---
Intake Visit Reasons: postop wound check with Xrays Intake Note: Ms. Cormier is here today for a Post op and wound check with x-rays. [employer] Media Specialist Required: No Allergies No Known Allergies Allergy (Verified 05/13/25 14:33) Assessment & Plan Assessment & Plan (1) Status post lumbar spine operative procedure for decompression of spinal cord: Code(s): Z98.890 - Other specified postprocedural states Category: Surgical Plan Procedure: L3-4, L4-5 lumbar decompression Rosibel comes in today as an acute add on visit after calling the clinic reporting that she has been experiencing acute onset severe low back pain since about Wednesday 05/09. She underwent surgery with Dr. Celaya on 04/28/25. She reports that for the first 10 days after surgery she felt great, then on Sunday morning she awoke with severe low back pain and I have recurrence of shooting pain down the posterior / lateral aspect of her left lower extremity. In addition to this she reports she has been experiencing chills, and some light nausea. Despite this she has been able to maintain fairly regular p.o. intake including regular water consumption, and regular consumption of basic foods, such as toast, yogurt, and cereal. She denies any at home fever, sweating, emesis, or diarrhea. She reports her pain is the worst with positional changes and ambulation, and better with rest such as sitting / lying down. Despite this she has not been sleeping at night, averaging only a couple of hours due to the pain. The patient is in no acute distress, however is in obvious pain. She is sitting in a wheelchair for the duration of this visit, however typically ambulates with the cane. She has no back pain elicited to direct pressure on her shoulders. No pain to lateral palpation of lumbar spine. Minimal pain elicited to palpation of edges of posterior incision site. The patients wound is well approximated with no signs of drainage. No erythema near wound edges. No palpable fluctuance. Rosibel is a pleasant elderly female who underwent L3-5 lumbar decompression on 04/28/25. She was doing very well in the immediate postoperative period, up until Tuesday 05/08. When she awoke Sunday she experienced severe low back pain, accompanied by chills and low grade nausea. No fever, emesis, or diarrhea at home. No drainage from her wound or evidence of infection on external examination. The patient reports she does not feel ill like she has a virus or upper respiratory issue. No coughing at home, no sputum production. We would like to send Rosibel for a urgent lumbar MRI with gado to evaluation for postoperative changes contributing to her pain, and to rule out an infectious origin for her pain. Given this, we have an overall low clinical suspision for infection given the acute (vs. gradual) onset of pain directly after feeling completely normal the day before, the lack of fever / constitutional symptoms, and the appearance of her incision site. I will call and update her with the results of the MRI. This patient was evaluated alongside my attending neurosurgeon Dr. Celaya, who wishes for the patient to undergo urgent MRI of the lumbar spine with contrast. Karl Celaya MD,PhD [facility] Orders: Orders MR lumbar spine wo/w con Today Z98.890 - Other specified postprocedural states Coding Level of Care Code Global (57538) Diagnoses Status post lumbar spine operative procedure for decompression of spinal cord Z98.890
== END 2025-05-13 15:20 | disposition home or self-care (01) ==
LOC: HO.HNS 14:08
PROVIDERS: PCP Internal Medicine Pulmonary Disease; Visit Provider Physician Assistant
DX: Z98.890 Other specified postprocedural states (principal)
CPT/HCPCS: 99024

== ENCOUNTER → 2025-05-13 14:18 | Outpatient (BNV) | payer MEDICARE, SELFPAY | PROVIDERS: Visit Provider Radiology Diagnostic Radiology | DX: M43.8X6 Other specified deforming dorsopathies, lumbar region (principal); Z98.890 Other specified postprocedural states | CPT/HCPCS: 72110 ==

== ENCOUNTER 2025-05-14 11:29 | Outpatient (REF) | payer MEDICARE, SELFPAY ==
--- NOTE | ~2025-05-14 | MR_ITS ---
EXAMINATION: MR LUMBAR SPINE WITH AND WITHOUT CONTRAST CLINICAL INFORMATION: Severe acute low back pain and left leg pain beginning after lumbar spine surgery performed 04/28/2025 COMPARISON: No prior available. Lumbar plane films 05/13/2025. TECHNIQUE: Multiplanar multisequence MR imaging of the lumbar spine was done both before and after the administration of 7.5 mL IV Gadavist. Examination was performed on a 1.5 Yadira Siemens magnet, utilizing standard sequences. FINDINGS: CORONAL ALIGNMENT: -Normal. SAGITTAL ALIGNMENT: - Mildly exaggerated lordosis. -There is a 5 mm degenerative anterolisthesis of L4 on L5. -Sagittal alignment is otherwise anatomic. LUMBOSACRAL JUNCTION: -Normal. There are 5 chp-irw-egquzks lumbar-type vertebral bodies. POSTOPERATIVE CHANGES: -Recent postoperative changes noted consisting of right hemilaminotomies at L3-4, and L4-5. There is associated paraspinous edema and enhancement. There is a small fluid collection to the right of the L3 spinous process, extending into the subcutaneous fat, measuring approximately 3.6 x 2.7 x 3.2 cm, presumably a postoperative seroma. VERTEBRAL BODIES/BONE MARROW: -Severe chronic compression deformity of L1 again noted. There is no gross bone marrow edema, or abnormal infiltrating bone marrow signal. -No edematous endplate changes. There are fatty type endplate changes at T11-T12. There is a large Schmorl's node in the superior endplate of T12. -Mild edema is present in the right pedicle of L5, presumably stress response. DISCS: -Severe loss of disc height and signal at L1-2, and L5-S1, with disc vacuum phenomenon. -There is otherwise mild to moderate loss of disc height and signal at the other levels. SPINAL CANAL: -There appears to be congenital spinal canal narrowing, with short pedicles, findings which will exacerbate acquired spondylosis. CONUS MEDULLARIS: -Terminates at L2. Morphology and signal is normal. INTRADURAL NERVE ROOTS: - No abnormal nerve root enhancement, clumping, or mass lesion. Axial Disc Space Images: T11-T12: There is a diffuse disc bulge present, right greater than left hypertrophic facet changes, posterior ligamentous thickening/infolding, resulting in mild to moderate central canal narrowing, moderate right lateral recess narrowing, and moderate to severe right neural foraminal stenosis. T12-L1: There is mild retropulsion of bone from the L1 superior endplate into the central canal by approximately 2 mm. There is a shallow diffuse bulging disc, asymmetrically prominent into the left foramen and lateral to foramen. Mild to moderate hypertrophic degenerative facet changes bilaterally, with posterior ligamentous thickening/infolding. There is mild to moderate central canal narrowing, no significant subarticular recess narrowing, and mild to moderate bilateral neural foraminal narrowing. L1-L2: There is a diffuse bulging disc extending into both foraminal zones, moderate to severe hypertrophic degenerative facet changes bilaterally, posterior ligamentous thickening/infolding, resulting in moderate central canal stenosis, moderate bilateral subarticular recess stenosis, and moderate bilateral neural foraminal stenosis. L2-L3: There is a small epidural fluid collection within the dorsal epidural fat, measuring approximately 4 x 4 x 10 mm. Coupled with a diffuse disc bulge and severe hypertrophic degenerative facet changes, the findings are resulting in severe central canal stenosis with central nerve root crowding and impingement. (Series 14, image 17; series 17, image 9; series 16, image 25). There is moderate bilateral subarticular recess stenosis. There is moderate left and mild right neural foraminal narrowing. L3-L4: Right hemilaminotomy and medial facetectomy. Diffuse bulging disc, severe bilateral hypertrophic degenerative facet changes, posterior ligamentous thickening/infolding, resulting in moderate central canal stenosis, moderate to severe left greater than right subarticular recess stenosis, and mild to moderate bilateral neural foraminal narrowing. L4-L5: Right hemilaminotomy and medial facetectomy. There is mild disc uncovering secondary to anterolisthesis. There is a diffuse bulging disc present extending into both foraminal zones. There are severe bilateral hypertrophic facet changes, with posterior ligamentous thickening/infolding. Combination of findings is resulting in severe central canal stenosis with reduction of the thecal sac to 4 mm AP diameter (series 14, image 29). There is severe left greater than right subarticular recess stenosis. There is moderate right greater than left neural foraminal stenosis. L5-S1: Minimal disc osteophytic bulge with a superimposed right lateral and foraminal disc protrusion. Moderate hypertrophic degenerative facet changes bilaterally, with mild posterior ligamentous thickening/infolding. There is no significant central canal or lateral recess stenosis. There is moderate bilateral neural foraminal stenosis. IMAGED SI JOINTS: -Lkgu-rk-gnzbjyfc degenerative changes bilaterally. PARAVERTEBRAL AND INCLUDED EXTRASPINAL SOFT TISSUES: -Expected postoperative changes, edema, and enhancement in the paraspinous musculature and soft tissues. Small seroma as detailed above. -There are numerous bilateral parapelvic renal cysts. -There is mild ectasia of the abdominal aorta without aneurysm. MR/MR lumbar spine wo/w con IMPRESSION: 1. Severe multilevel lumbar spondylosis. Recent right hemilaminotomy and right facetectomy at L3-4 and L4-5. Expected postoperative changes and enhancement. There is a small presumed postoperative seroma in the operative bed as discussed. 2. There is a small 4 x 4 x 10 mm epidural fluid collection, presumably a hematoma (although abscess is not excluded in the appropriate clinical context), within the dorsal central epidural fat at L2-3, which when combined with spondylotic changes is resulting in severe central canal stenosis and impingement at this level. 3. Severe central canal stenosis at L4-5 as discussed, despite recent decompressive changes. 4. Please see the body the report for details on individual levels. Electronically signed by: Iván Guardado MD 05/14/2025 01:17 PM EDT
--- OUTSIDE RECORDS SUMMARY | 2025-05-14 13:22 | XMS_ITS | Clinical Summary ---
Author Organization [facility] [address] [facility] Address [address] [place] [address] Phone Care Team Providers Care Psychologist Clinical Name Role Phone Moses Haywood MD Primary Care Provider [phone] Surgical History Surgery Date Site/Laterality Comments BACK [...] LAB CHEMISTRY METHOD 07/07/2024 3:05 PM EST [facility] eGFR 89 >=60 mL/min/1. 73m2 LAB CHEMISTRY METHOD 07/07/2024 3:05 PM EST [facility] Comment:Calculation based on the Chronic Kidney Disease Epidemiology Collaboration (CKD-EPI) equation refit without adjustment for race. Blood Venous blood specimen / Unknown Venipuncture / Unknown 07/07/2024 9:37 AM EST 07/07/2024 12:20 PM EST us Moses Haywood MD LAB BLOOD ORDERABLES Final Res ult [facility] [address] [place] [address], * BONE DENSITY STUDY (03/05/2024 12:11 PM EDT) Anatomical Region Laterality Modality Bone Densitometr y 02/27/2024 2:29 PM EDT Narrative 03/05/2024 12:15 PM EDT Bone density study Indication and risk factors: Postmenopausal female. Screening for osteoporosis. No priors. Study acquired on a [employer] densitometer. Imaging of the lumbar spine and [...] on 03/05/2024 12:15 PM. Workstation Name - [id number] [employer] Procedure Note Bailey Swann MD - 05/27/2024 Bone density study Indication and risk factors: Postmenopausal female. Screening forosteoporosis. No priors. Study acquired on a [employer] densitometer. Imaging of thelumbar spine and hip [...] Swann on 03/05/2024 12:15 PM.Workstation Name - [id number] Moses Haywood MD IMG DXA PROCEDURES Final Resul t from Last 3 Months or Most Recently Relevant to Health Maintenance Insurance [employer] MED[employer] Care Teams Psychologist Clinical Relationship Specialty Start Date End Date Moses Haywood MD [address] [place] [address] [place] [address] PCP - General 10/04/22
--- OUTSIDE RECORDS SUMMARY | 2025-05-14 13:22 | XMS_ITS | Clinical Summary ---
Author Organization [facility] Address [address] [place] [address] Care Team Providers Care Data Lead Name Role Phone Moses Haywood MD Primary Care Provider [phone] Allergies Active Allergy Reactions Criticality Noted Date [...] age to complete this topic Care Teams Data Lead Relationship Specialty Start Date End Date Moses Haywood MD [address] [place] [address] PCP - General Pulmonary Disease 10/04/22
== END 2025-05-14 11:30 | disposition home or self-care (01) ==
LOC: HO.MRI 11:29
PROVIDERS: PCP Family Medicine; Visit Provider Physician Assistant
DX: Z98.890 Other specified postprocedural states (principal)
CPT/HCPCS: 72158; A9585

== ENCOUNTER → 2025-05-14 11:42 | Outpatient (BNV) | payer MEDICARE, SELFPAY | PROVIDERS: PCP Family Medicine; Visit Provider Radiology Diagnostic Radiology | DX: M47.816 Spondylosis without myelopathy or radiculopathy, lumbar region (principal); M48.061 Spinal stenosis, lumbar region without neurogenic claudication | CPT/HCPCS: 72158 ==

== ENCOUNTER 2025-05-20 02:35 | Emergency (ER) | payer MEDICARE, SELFPAY ==
--- NOTE | ~2025-05-20 | CT_ITS ---
CLINICAL HISTORY: post operative pain radicular sxs CT LUMBAR SPINE WITHOUT CONTRAST COMPARISON: MRI lumbar spine 05/14/2025. FINDINGS: Osteopenia lowers the sensitivity of the exam. Exam is limited due to osteopenia and lack of IV contrast. No evidence of an acute fracture or dislocation in the lumbar spine. Chronic compression deformity of the L1 vertebral body level is again noted, with keqhtzqq-ur-hgcyot loss of height anteriorly, and mild retropulsion into the central canal. This does not appear to be significantly changed. Grade 1 anterolisthesis of L4 on L5 is again noted. Right inferior hemilaminectomy changes are noted at the L3 and L4 vertebral body levels. Multilevel disc protrusions are faintly visualized. There are multilevel endplate degenerative changes and facet arthrosis. Ligamentum flavum hypertrophy is noted at L4-L5, as described on the prior MRI study. Central canal and neural foramina are better visualized on the prior MRI study, please see that report for further discussion. Postoperative fluid is again noted in the subcutaneous tissues posterior to the L3 and L4 vertebral body levels. This was also noted previously. Parapelvic cysts are noted in association with the bilateral kidneys. Small hiatal hernia is noted. Calcific plaque is noted in the abdominal aorta. There is mild ectasia of the infrarenal abdominal aorta without evidence of an aneurysm. IMPRESSION: 1. No evidence of an acute fracture or dislocation in the lumbar spine. Postoperative and degenerative changes are noted, please see above for details. 2. Additional findings are detailed above. This document has been electronically signed by: Rommel Tenorio M.D. on 05/20/2025 04:45:51
[2025-05-20 02:44] VITALS: BP 137/98; PULSE 99; O2SAT 99; BMI 32.3
[2025-05-20 03:10] LABS: Hematocrit 32.9 % (37.0-47.0); Hemoglobin 11.6 g/dl (12.0-16.0); Imm Gran Abs Auto 0.10 X10*3/uL (0.00-0.03); Imm Gran Pct Auto 0.8 % (0.0-0.4); Lymphocytes Absolute Auto 2.0 X10*3/uL (1.2-4.9); Mean Corpuscular HGB Conc 35.3 g/dl (31.0-35.0); Mean Corpuscular Hemoglobin 30.8 pg (27.0-33.0); Mean Corpuscular Volume 87.3 fL (80.0-98.0); NRBC Abs Auto 0.000 X10*3/uL (0.0-0.012); NRBC Pct Auto 0.0 /100WBC (0.0-0.2); Platelet Count 283 X10*3/uL (160-400); Red Blood Count 3.77 X10*6/uL (4.20-5.50); White Blood Count 11.8 X10*3/uL (4.8-10.8)
[2025-05-20 03:11] LABS: MANUAL DIFF FLAG NO
--- NOTE | 2025-05-20 03:22 | ED_ITS ---
HPI - General Adult General Chief complaint: Back Pain/Injury Stated complaint: LOWER BACK PAIN Time Seen by Provider: 05/20/25 03:30 Source: patient Limitations: no limitations History of Present Illness ED Provider: Evelyne Yusuf PA-C HPI narrative: 80-year-old female with a history of known L3-L4, L4-L5, spinal stenosis with lateral recess stenosis and neuroforaminal stenosis, now status postL3-4, L4-5 Laminotomy, Partial facetectomy and foraminotomy with use of microscope Dr. Celaya, presents with lumbar pain. Patient states after the procedure she felt well, her pain was much improved. She has subsequently developed new pain that has radiating down both lower extremities. Patient can not find a comfortable position. Denies paresthesia, weakness of lower extremity, urinary retention or bowel incontinence. The patient has an appointment with her surgeon tomorrow. She is here in the emergency room due to inability to manage her pain. Related Data Home Medications ?Medication ?Instructions ?Recorded ?Confirmed amlodipine 5 mg tablet 5 mg PO QAM 05/03/23 5 acetaminophen 650 mg 650 mg PO Q12H 04/23/2504/13 tablet,extended release celecoxib 200 mg capsule 200 mg PO DAILY pain 5 04/23/25 multivitamin 1 tab PO QAM 04/23/25 Previous Rx's ?Medication ?Instructions ?Recorded walker #1 ea 05/29/23 docusate sodium 100 mg capsule 100 mg PO BID #20 caps 04/28/25 (Colace) tramadol 50 mg tablet 50 mg PO Q6H pain #20 tabs 05/15/25 diazepam 5 mg tablet (Valium) 5 mg PO TID PRN pain, mo derate #10 05/20/25 tabs prednisone 10 mg tablets in a dose 10 mg PO DAILY #48 ea 05/20/25 pack Allergies Allergy/AdvReac Type Severity Reaction Status Date / Time No Known Allergies Allergy Verified 05/20/25 02:49 Review of Systems 2 Review of Systems: Yes all other systems are reviewed and are negative Constitutional: Constitutional: Denies fatigue and Denies fever(s) Cardiovascular: Cardiovascular: Denies chest pain and Denies dyspnea Respiratory: Respiratory: Denies dyspnea Musculoskeletal: Musculoskeletal: Reports back pain, Denies muscle weakness, Denies numbness, Reports radiating pain into limb and Denies tingling Neurologic: Denies numbness and Denies tingling Endocrine: Endocrine: Denies fatigue PMFSH Past Medical History Attestation statement: The following information was validated with the patient. Medical History Arthritis L1 vertebral fracture Eczema HTN (hypertension) Osteoarthritis Surgical History History of total right hip replacement History of total left hip arthroplasty (06/18/23) History of Hx of colonoscopy History of back surgery History of total right knee replacement (TKR) History of total left knee replacement (TKR) Family History Family History Mother Breast cancer Sister Dementia Leukemia Father Emphysema of lung Social History Social History Household Members: Spouse Housing: [facility] Are you a primary healthcare administrator to a significant other at home: No Do you presently have visiting nurse or other home services: No Alcohol intake: current Alcohol intake frequency: holidays/special occasions only Comment: medicated Patient Tobacco Use Status: Never used Tobacco Smoked in Last 30 Days: No Use of substances other than those prescribed or required for medical reasons: No Substance Use Type: Marijuana Advance Directives: Yes Advance Directives on File: Yes Advance Directives Date on File: 06/21/23 service: No Current occupational status: retired Physical Exam ED Vital Signs: Vital Signs - 24 hr 05/20/25 04:24 05/20/25 05:43 05/20/25 05:57 Temperature 97.6 F 97.6 F Pulse Rate 77 77 Respiratory Rate 16 16 16 Blood Pressure 140/67 H 140/67 H Pulse Oximetry 98 98 BMI result Body Mass Index 32.3 Const Other: Alert well-appearing Orientation/consciousness: patient oriented x3 Resp Effort & Inspection: normal respiratory effort Cardio Other: Normal peripheral perfusion Skin Other: Warm dry no rash Neuro Other: Antalgic gait General: patient oriented x3, no focal motor deficits and CN's II-XI intact bilaterally Extrem Other: Strength 5/5 bilateral lower extremities Psych Other: Cooperative Medications Administered Discontinued Medications Generic Name Dose Route Start Last Admin Trade Name Mary Ellen PRN Reason Stop Dose Admin Diazepam 5 mg 05/20/25 03:20 05/20/25 03:31 Diazepam 10 Mg/2 Ml Cartridge IVPUSH 05/20/25 03:21 5 mg STAT STA Administration Ketorolac Tromethamine 15 mg 05/20/25 03:23 05/20/25 03:31 Ketorolac Tromethamine 15 Mg/Ml Vial IVPUSH 05/20/25 03:24 15 mg ONCE ONE Administration Prednisone 10 mg 05/20/25 05:02 05/20/25 05:25 Prednisone 10 Mg Tablet PO 05/20/25 05:03 10 mg ONCE ONE Administration Medical Decision Making Medical Decision Making [facility] Narrative: 80-year-old female with a history of known L3-L4, L4-L5, spinal stenosis with lateral recess stenosis and neuroforaminal stenosis, now status postL3-4, L4-5 Laminotomy, Partial facetectomy and foraminotomy with use of microscope Dr. Celaya, presents with lumbar pain. Patient states after the procedure she felt well, her pain was much improved. She has subsequently developed new pain that has radiating down both lower extremities. Patient can not find a comfortable position. Denies paresthesia, weakness of lower extremity, urinary retention or bowel incontinence. The patient has an appointment with her surgeon tomorrow. She is here in the emergency room due to inability to manage her pain. Problem: Recent surgery History: Per patient I have considered the following differential diagnoses: Postoperative complication, lumbar strain, lumbar radiculopathy, cauda equina Plan: We will obtain a CT scan, giving Valium Toradol. No indication for screening labs at this point. To note she has no red flag signs symptoms concerning for cord compression, she likely is having postoperative inflammation/pain. I have independently reviewed the following tests: CT lumbar spine:IMPRESSION: 1. No evidence of an acute fracture or dislocation in the lumbar spine. Postoperative and degenerative changes are noted, please see above for details. 2. Additional findings are detailed above. As I am reviewing findings with the patient, she now states that she already had an MRI as an outpatient and that it was normal. I can see this in the chart now, she never verbalize this, I never would have obtain a CT scan. Differential Diagnosis Differential Diagnoses: The differential diagnosis associated with the presentation includes See medical decision-making Admission/Observation Consideration of admission/observation: Escalation of care including admission/observation considered Not applicable Lab Data 05/20/25 03:04 05/20/25 03:04 Labs: Lab Results 05/20/25 Range/Units 03:04 WBC 11.8 H (4.8-10.8) X10*3/uL RBC 3.77 L (4.20-5.50) X10*6/uL Hgb 11.6 L (12.0-16.0) g/dl Hct 32.9 L (37.0-47.0) % MCV 87.3 (80.0-98.0) fL MCH 30.8 (27.0-33.0) pg MCHC 35.3 H (31.0-35.0) g/dl RDW 12.3 (11.0-16.0) % Plt Count 283 D (160-400) X10*3/uL MPV 8.6 L (9.4-12.3) fL Immature Gran % (Auto) 0.8 H (0.0-0.4) % Neut % (Auto) 72.2 (45-73) % Lymph % (Auto) 16.6 L (20-40) % Amelia % (Auto) 8.7 (2-11) % Eos % (Auto) 1.4 (0-4) % Baso % (Auto) 0.3 (0-2) % Lymph # (Auto) 2.0 (1.2-4.9) X10*3/uL Amelia # (Auto) 1.0 (0.1-1.2) X10*3/uL Eos # (Auto) 0.2 (0.0-0.4) X10*3/uL Baso # (Auto) 0.0 (0.0-0.2) X10*3/uL Abs Immat Gran (auto) 0.10 H (0.00-0.03) X10*3/uL Absolute Neuts (auto) 8.5 H (2.0-8.3) x10*3/uL Absolute Nucleated RBC 0.000 (0.0-0.012) X10*3/uL Nucleated RBC % (auto) 0.0 (0.0-0.2) /100WBC Sodium 138 (135-145) mmol/L Potassium 3.8 (3.3-5.1) mmol/L Chloride 101 (96-108) mmol/L Carbon Dioxide 27 (22-29) mmol/L Anion Gap 14 (12-20) BUN 19 H (9-16) mg/dL Creatinine 0.57 (0.5-1.4) mg/dL Estim Creat Clear Calc 78.5 Estimated GFR > 60 Random Glucose 128 H (60-115) mg/dL Calcium 9.5 (8.4-10.2) mg/dL Total Bilirubin 0.6 (0.0-1.0) mg/dL AST 82 H (5-31) U/L ALT 90 H (0-31) U/L Alkaline Phosphatase 227 H (39-117) U/L Total Protein 6.8 (6.5-8.0) g/dL Albumin 3.9 (3.5-5.0) g/dL Radiology Impression Discussion of test interpretation with radiology: I have reviewed the radiologist's reading. Discharge Plan Discharge Clinical Impression: Lumbar back pain Patient Disposition: Home, Self-Care Additional Instructions: There were no acute abnormalities on the CT scan of your lumbar spine. Keep your appointment scheduled for tomorrow with your surgeon to discuss your postoperative pain. In the meantime, use the celecoxib as directed for pain this is an anti-inflammatory take it with food. Start the steroid taper tomorrow. Use the Valium as needed for further pain, this is a muscle relaxant, it will cause drowsiness. Do not drive while taking the medication. Prescriptions: New diazepam [Valium] 5 mg tablet 5 mg PO TID PRN (Reason: pain, moderate) Qty: 10 0RF prednisone 10 mg tablets,dose pack 10 mg PO DAILY Qty: 48 0RF Rx Instructions: Take per package instructions No Action (DME) juan Charles See Rx Instructions .ROUTE .MEDSUPPLY Qty: 1 0RF Rx Instructions: Folding front wheeled walker tramadol 50 mg tablet 50 mg PO Q6H Qty: 20 0RF celecoxib 200 mg capsule 200 mg PO DAILY acetaminophen 650 mg Tablet Extended Release 650 mg PO Q12H multivitamin Tablet 1 tab PO QAM docusate sodium [Colace] 100 mg capsule 100 mg PO BID Qty: 20 0RF amlodipine 5 mg tablet 5 mg PO QAM Interventions: ED Discharge Assessment Last Done: 05/20/25 05:57 Discharge Date/Time: 05/20/25 06:05 Print Language: Haitian
[2025-05-20] MEDS: diazePAM 10 MG/2 ML CARTRIDGE 5 MG IVPUSH (03:31)
--- OUTSIDE RECORDS SUMMARY | 2025-05-20 03:32 | XMS_ITS | Clinical Summary ---
Author Organization [facility] [address] [facility] Address [address] [place] [address] Phone Care Team Providers Care Secondary Teacher Name Role Phone Moses Haywood MD Primary Care Provider [phone] Surgical History Surgery Date Site/Laterality Comments BACK [...] LAB CHEMISTRY METHOD 07/07/2024 3:05 PM EST [facility] eGFR 89 >=60 mL/min/1. 73m2 LAB CHEMISTRY METHOD 07/07/2024 3:05 PM EST [facility] Comment:Calculation based on the Chronic Kidney Disease Epidemiology Collaboration (CKD-EPI) equation refit without adjustment for race. Blood Venous blood specimen / Unknown Venipuncture / Unknown 07/07/2024 9:37 AM EST 07/07/2024 12:20 PM EST us Moses Haywood MD LAB BLOOD ORDERABLES Final Res ult [facility] [address] [place] [address], * BONE DENSITY STUDY (03/05/2024 12:11 PM EDT) Anatomical Region Laterality Modality Bone Densitometr y 02/27/2024 2:29 PM EDT Narrative 03/05/2024 12:15 PM EDT Bone density study Indication and risk factors: Postmenopausal female. Screening for osteoporosis. No priors. Study acquired on a [employer] densitometer. Imaging of the lumbar spine and [...] on 03/05/2024 12:15 PM. Workstation Name - [id number] Procedure Note Bailey Swann MD - 05/27/2024 Bone density study Indication and risk factors: Postmenopausal female. Screening forosteoporosis. No priors. Study acquired on a [employer] densitometer. Imaging of thelumbar spine and hip [...] Swann on 03/05/2024 12:15 PM.Workstation Name - [id number] [employer] Moses Haywood MD IMG DXA PROCEDURES Final Resul t from Last 3 Months or Most Recently Relevant to Health Maintenance Insurance [employer] MED[employer] Care Teams Secondary Teacher Relationship Specialty Start Date End Date Moses Haywood MD [address] [place] [address] [place] [address] PCP - General 10/04/22
--- OUTSIDE RECORDS SUMMARY | 2025-05-20 03:32 | XMS_ITS | Clinical Summary ---
Author Organization [facility] Address [address] [place] [address] Care Team Providers Care Mattress Filler Name Role Phone Moses Haywood MD Primary Care Provider [phone] Allergies Active Allergy Reactions Criticality Noted Date [...] age to complete this topic Care Teams Mattress Filler Relationship Specialty Start Date End Date Moses Haywood MD [address] [place] [address] PCP - General Pulmonary Disease 10/04/22
[2025-05-20 03:34] LABS: Alanine Aminotransferase 90 U/L (0-31); Albumin Level 3.9 g/dL (3.5-5.0); Alkaline Phosphatase 227 U/L (39-117); Anion Gap 14 (12-20); Aspartate Amino Transferase 82 U/L (5-31); Blood Urea Nitrogen 19 mg/dL (9-16); Calcium 9.5 mg/dL (8.4-10.2); Carbon Dioxide 27 mmol/L (22-29); Chloride 101 mmol/L (96-108); Creatinine Clr Calc Pharmacy 78.5; Estimated Glomerular Filt Rate > 60; Potassium 3.8 mmol/L (3.3-5.1); Sodium 138 mmol/L (135-145); Total Protein 6.8 g/dL (6.5-8.0)
[2025-05-20 04:24] VITALS: RESP 16
[2025-05-20 05:43] VITALS: BP 140/67; PULSE 77; RESP 16; TEMP 36.4; O2SAT 98
[2025-05-20 05:57] VITALS: BP 140/67; PULSE 77; RESP 16; TEMP 36.4; O2SAT 98
== END 2025-05-20 06:05 | disposition home or self-care (01) ==
PROVIDERS: Emergency Provider Emergency Medicine; PCP Family Medicine
DX: M54.50 Low back pain, unspecified (principal); Z79.899 Other long term (current) drug therapy
CPT/HCPCS: 36415; 72131; 80053; 85025; 96374; 96375; 99284; J1885; J3360

== ENCOUNTER → 2025-05-20 03:20 | Outpatient (BNV) | payer MEDICARE, SELFPAY | PROVIDERS: Emergency Provider Emergency Medicine; PCP Family Medicine; Visit Provider Radiology Diagnostic Radiology | DX: M51.360 Other intervertebral disc degeneration, lumbar region with discogenic back pain only (principal) | CPT/HCPCS: 72131 ==

== ENCOUNTER 2025-05-21 13:38 | Outpatient (AMB) | payer MEDICARE, SELFPAY ==
--- OUTSIDE RECORDS SUMMARY | 2025-05-21 13:41 | XMS_ITS | Clinical Summary ---
Author Organization [facility] Address [address] [place] [address] Care Team Providers Care Certified Pharmacy Tech Name Role Phone Moses Haywood MD Primary Care Provider [phone] Allergies Active Allergy Reactions Criticality Noted Date [...] age to complete this topic Care Teams Certified Pharmacy Tech Relationship Specialty Start Date End Date Moses Haywood MD [address] [place] [address] PCP - General Pulmonary Disease 10/04/22
--- OUTSIDE RECORDS SUMMARY | 2025-05-21 13:41 | XMS_ITS | Clinical Summary ---
Author Organization [facility] [address] [facility] [place] Address [address] [place] [address] Phone Care Team Providers Care Mechanical Maintenance Worker Name Role Phone Moses Haywood MD Primary Care Provider [phone] Surgical History Surgery Date Site/Laterality Comments BACK [...] LAB CHEMISTRY METHOD 07/07/2024 3:05 PM EST [facility] eGFR 89 >=60 mL/min/1. 73m2 LAB CHEMISTRY METHOD 07/07/2024 3:05 PM EST [facility] Comment:Calculation based on the Chronic Kidney Disease Epidemiology Collaboration (CKD-EPI) equation refit without adjustment for race. Blood Venous blood specimen / Unknown Venipuncture / Unknown 07/07/2024 9:37 AM EST 07/07/2024 12:20 PM EST us Moses Haywood MD LAB BLOOD ORDERABLES Final Res ult [facility] [address] [place] [address], * BONE DENSITY STUDY (03/05/2024 12:11 PM EDT) Anatomical Region Laterality Modality Bone Densitometr y 02/27/2024 2:29 PM EDT Narrative 03/05/2024 12:15 PM EDT Bone density study Indication and risk factors: Postmenopausal female. Screening for osteoporosis. No priors. Study acquired on a [employer] densitometer. Imaging of the lumbar spine and [...] on 03/05/2024 12:15 PM. Workstation Name - JINGProxima Cancion Procedure Note Bailey Swann MD - 05/27/2024 Bone density study Indication and risk factors: Postmenopausal female. Screening forosteoporosis. No priors. Study acquired on a [employer] densitometer. Imaging of thelumbar spine and hip [...] Swann on 03/05/2024 12:15 PM.Workstation Name - JINGGlance App Moses Haywood MD IMG DXA PROCEDURES Final Resul t from Last 3 Months or Most Recently Relevant to Health Maintenance Insurance [place] [address] Care Teams Mechanical Maintenance Worker Relationship Specialty Start Date End Date Moses Haywood MD [address] [place] [address] [place] [address] PCP - General 10/04/22
--- NOTE | 2025-05-21 13:44 | A.SPINEOV_ITS ---
Intake Visit Reasons: f/up MRI Intake Note: Ms. Cormier is here to F/u on the results to her MRI. Outpatient Receptionist Required: No Allergies No Known Allergies Allergy (Verified 05/20/25 02:49) Assessment & Plan Assessment & Plan (1) Lumbar spinal stenosis: Code(s): M48.061 - Spinal stenosis, lumbar region without neurogenic claudication Category: Medical Qualifiers: Neurogenic claudication status: with neurogenic claudication Qualified Code(s): M48.062 - Spinal stenosis, lumbar region with neurogenic claudication Plan Mrs Cormier is following up from the emergency room. She was there few days ago because of the severity of the back pain and leg pain. She has been started on steroids in his feeling a bit better. She is able to stand up and walk in the hallways. She is also taking gabapentin as needed and tramadol. Her incision is well healed. She has full strength of bilateral lower extremities. Reflexes blunted secondary to knee replacement surgery. Overall she feels better and thinks that the steroids are helping. We talked about the fact that when she gets off them things may settle down. I would like to see her back in 2 weeks to re-evaluate. Brodie Celaya MD, PhD [facility] Coding Level of Care Code Global (75152) Diagnoses Spinal stenosis of lumbar region with neurogenic claudication M48.062 Neurogenic claudication status: with neurogenic claudication
== END 2025-05-21 14:26 | disposition home or self-care (01) ==
LOC: HO.HNS 13:39
PROVIDERS: PCP Family Medicine; Visit Provider Physician Assistant
DX: M48.062 Spinal stenosis, lumbar region with neurogenic claudication (principal)
CPT/HCPCS: 99024

== ENCOUNTER → 2025-05-21 13:38 | Outpatient (BNVA) | payer MEDICARE, SELFPAY | PROVIDERS: PCP Family Medicine; Visit Provider Physician Assistant | DX: M48.062 Spinal stenosis, lumbar region with neurogenic claudication (principal) | CPT/HCPCS: 99212 ==

== ENCOUNTER 2025-06-04 14:17 | Outpatient (AMB) | payer MEDICARE, SELFPAY ==
--- NOTE | 2025-06-04 14:46 | A.SPINEOV_ITS ---
Intake Visit Reasons: 2 wk follow up Intake Note: Mrs. Cormier is here today for her 2 week F/u. Account Clerk Required: No Allergies No Known Allergies Allergy (Verified 05/20/25 02:49) Assessment & Plan Assessment & Plan (1) Lumbar stenosis with neurogenic claudication: Code(s): M48.062 - Spinal stenosis, lumbar region with neurogenic claudication Category: Medical Plan Mrs Cormier is here in follow-up. Her preoperative right leg pain is gone, but she continues to have horrible left leg pain going down into her anterior lateral thigh ending at about her knee. It has been almost unbearable the amount of pain she is in. She is unable to sleep, stand or walk. She has been taking Tylenol. She can not take narcotics, or rather would prefer not to take narcotics, due to recent passing of her son from narcotic overdose. It just is not an option. Dr. Celaya and I met with her, and reviewed her postop MRI done at [place] again, and there is still lateral recess stenosis on the left at L3-4 and L4-5. We were hoping we could get her through this without surgery again , but it looks like the minimally invasive approach we attempted using a unilateral rights side approach for both sides was just not able to get enough of the lateral recess on the left, so we will have to go in and do a left-sided L3-4 and L4-5 decompression. We discussed it with the patient again and she wishes to proceed. She understands there is some risk for instability because she has a spondylolisthesis at L4-5, but hardware really is not an option secondary to osteoporosis. We will call her with the date for surgery. The patient was given risk and benefits of surgery including but not limited to infection, hematoma, nerve injury, durotomy, weakness, bowel/bladder injury, persistent pain,[ ]. We also discussed the option to continue with conservative treatment and patient wishes to proceed with surgery. They are aware they should stop NSAIDs 7 days prior to surgery. All questions were answered to the best of our ability. If there is anything about this patients medical history that we have overlooked or concerns you have about us proceeding with surgery we would appreciate any input you can offer Brodie Celaya MD,PhD [facility] Coding Level of Care Code Global (43623) Diagnoses Lumbar stenosis with neurogenic claudication M48.062
--- OUTSIDE RECORDS SUMMARY | 2025-06-04 18:09 | XMS_ITS | Clinical Summary ---
Author Organization [facility] Address [address] [place] [address] Care Team Providers Care Tool And Die Manager Name Role Phone Moses Haywood MD Primary Care Provider [phone] Allergies Active Allergy Reactions Criticality Noted Date [...] age to complete this topic Care Teams Tool And Die Manager Relationship Specialty Start Date End Date Moses Haywood MD [address] [place] [address] PCP - General Pulmonary Disease 10/04/22
--- OUTSIDE RECORDS SUMMARY | 2025-06-04 18:09 | XMS_ITS | Clinical Summary ---
Author Organization [facility] [address] [facility] Address [address] [place] [address] Phone Care Team Providers Care Sound Assistant Name Role Phone Moses Haywood MD Primary Care Provider [phone] Surgical History Surgery Date Site/Laterality Comments BACK [...] LAB CHEMISTRY METHOD 07/07/2024 3:05 PM EST [facility] eGFR 89 >=60 mL/min/1. 73m2 LAB CHEMISTRY METHOD 07/07/2024 3:05 PM EST [facility] Comment:Calculation based on the Chronic Kidney Disease Epidemiology Collaboration (CKD-EPI) equation refit without adjustment for race. Blood Venous blood specimen / Unknown Venipuncture / Unknown 07/07/2024 9:37 AM EST 07/07/2024 12:20 PM EST us Msoes Haywood MD LAB BLOOD ORDERABLES Final Res ult [facility] [address] [place] [address], * BONE DENSITY STUDY (03/05/2024 12:11 PM EDT) Anatomical Region Laterality Modality Bone Densitometr y 02/27/2024 2:29 PM EDT Narrative 03/05/2024 12:15 PM EDT Bone density study Indication and risk factors: Postmenopausal female. Screening for osteoporosis. No priors. Study acquired on a [employer] densitometer. Imaging of the lumbar spine and [...] on 03/05/2024 12:15 PM. Workstation Name - JINGHarri Procedure Note Bailey Swann MD - 05/27/2024 Bone density study Indication and risk factors: Postmenopausal female. Screening forosteoporosis. No priors. Study acquired on a [employer] densitometer. Imaging of thelumbar spine and hip [...] Swann on 03/05/2024 12:15 PM.Workstation Name - JINGInvivodata Moses Haywood MD IMG DXA PROCEDURES Final Resul t from Last 3 Months or Most Recently Relevant to Health Maintenance Insurance [employer] Care Teams Sound Assistant Relationship Specialty Start Date End Date Moses Haywood MD [address] [place] [address] [place] [address] PCP - General 10/04/22
== END 2025-06-04 15:23 | disposition home or self-care (01) ==
LOC: HO.HNS 14:18
PROVIDERS: PCP Family Medicine; Visit Provider Physician Assistant
DX: M48.062 Spinal stenosis, lumbar region with neurogenic claudication (principal)
CPT/HCPCS: 99024

== ENCOUNTER → 2025-06-04 14:17 | Outpatient (BNVA) | payer MEDICARE, SELFPAY | PROVIDERS: PCP Family Medicine; Visit Provider Physician Assistant | DX: M48.062 Spinal stenosis, lumbar region with neurogenic claudication (principal); Z98.890 Other specified postprocedural states | CPT/HCPCS: 99212 ==

== ENCOUNTER 2025-07-24 09:47 | Outpatient (AMB) | payer MEDICARE, SELFPAY ==
--- NOTE | 2025-07-24 09:54 | A.OFFPC_ITS ---
Vital Signs 07/24/25 10:16 Height 5 ft 2 in Weight 171 lb 4 oz BMI 31.3 BP 126/70 Blood Pressure Location Rt brachial Position Sitting Respiration 16 Pulse 69 Pulse Source Pulse Oximeter Temp 98.5 F Temp Source Temporal Artery Scan Pulse Oximetry (%) 98 Oxygen Delivery Method Room Air Intake Visit Reasons: CPE? Intake Note: Rosibel presents in the office today to establish care. Regulatory Affairs Coordinator Required: No Is last menstrual period known: No Post menopausal: Yes Patient : No Allergies No Known Allergies Allergy (Verified 07/24/25 09:54) Medication List - Last Reconciled 07/24/25 by Froilan Short MD acetaminophen ER 650 mg PO Q12H amlodipine 5 mg PO QAM celecoxib 200 mg PO DAILY docusate sodium (Colace) 100 mg PO BID multivitamin 1 tab PO QAM walker Folding front wheeled walker Tobacco use date assessed: 07/24/25 Fall risk assessment: No Falls in past year Last assessed Fall Risk: 07/24/25 Dental Screening Dental Screen Date: 07/24/25 Did you have a dental visit in the last 12 months?: Yes Did you have a dental problem in the last 6 months where you did not have access to dental care?: No Was dental information given to patient?: Patient has dentist HPI CPE? HPI Details New Patient? ?? Prior PCP:? [facility] in [place] Last office visit/CPE:? 3-4 mos ago. CPE in October Acute issue(s):? Lumbar stenosis and recent surgery - Pain improved. ?? PMHx:? Hypertension, lumbar stenosis, L1 Vertebral fracture. SurgHx:?Total Hips B/L, Lumbar spine decompression SocHx:? Nonsmoker, EtOH 1 drink every few mos. No drugs PFSH Medical History (Updated 07/24/25 @ 10:46 by Loi Gerard) H/O mammogram Sinusitis Arthritis L1 vertebral fracture Eczema HTN (hypertension) Osteoarthritis Surgical History (Updated 05/13/25 @ 08:54 by ABDULKADIR Pantoja) History of total right hip replacement History of total left hip arthroplasty (06/18/23) History of Hx of colonoscopy History of back surgery History of total right knee replacement (TKR) History of total left knee replacement (TKR) Family History (Updated 07/24/25 @ 10:15 by Bailey Villegas CMA) Mother Breast cancer Sister Dementia Leukemia Father Emphysema of lung Social History (Updated 07/24/25 @ 10:16 by Bailey Villegas CMA) Household Members: Spouse Housing: Condominium Are you a primary home child care provider to a significant other at home: No Do you presently have visiting nurse or other home services: No 75 years or older and lives alone: No Alcohol intake: current Alcohol intake frequency: holidays/special occasions on ly Comment: medicated Patient Tobacco Use Status: Never used Tobacco e-Cigarette/Vaping Use: Never Used Second Hand Smoke Exposure: No Use of substances other than those prescribed or required for medical reasons: No Substance Use Type: Marijuana Advance Directives Date on File: 06/21/23 Patient : No service: No Current occupational status: retired Current occupational exposures/hazards: No Cognitive needs: No Hearing needs: No Vision needs: No Questionnaire PHQ-9 Over the last 2 weeks, how often have you been bothered by any of the following problems? 1. Little interest or pleasure in doing things: not at all 2. Feeling down, depressed, or hopeless: not at all 3. Trouble falling or staying asleep, or sleeping too much: not at all 4. Feeling tired or having little energy: not at all 5. Poor appetite or overeating: not at all 6. Feeling bad about yourself - or that you are a failure or have let yourself or your family down: not at all 7. Trouble concentrating on things, such as reading the newspaper or watching television: not at all 8. Moving or speaking so slowly that other people could have noticed. Or the opposite - being so fidgety or restless that you have been moving around a lot more than usual: not at all 9. Thoughts that you would be better off or of hurting yourself in some way: not at all Total score: 0 Depression Screening Interpretation: Negative Depression Screening Done: Yes 43052 - PHQ-9 Billing: Yes Source: Developed by Drs. Ganesh Webster, Anila Pacheco, Prabhu Torrez and colleagues, with an educational anabelle from [employer]. Thrive Questionnaire Date Thrive assessed: 07/24/25 I am a: Patient What is your living situation today?: I have a steady place to live Within the past 12 months, did the food you bought not last and you didn't have the money to get more?: Often true Within the past 12 months, did you worry whether your food would run out before you got money to buy more?: Often true Do you have trouble paying for medicines?: No Do you have trouble getting transportation to medical appointments?: No Do you have trouble paying your heating and electricity bill?: No Do you have trouble taking care of your child, family member or friend?: No Do you have trouble with day-to-day activities such as bathing, preparing meals, shopping, managing finances, etc.?: No Are you currently unemployed and looking for a job?: No Are you interested in more education?: No Please select the resources that you would like help with: None Currently or been in a relationship where the following occur: No concerns reported THRIVE Score: 2 AUDIT C Alcohol Use Questionnaire (AUDIT-C) 1. How often do you have a drink containing alcohol?: Monthly or less 2. How many drinks containing alcohol do you have on a typical day when you are drinking?: 1 or 2 3. How often do you have six or more drinks on one occasion?: Never Total Score: 1 DESHAUN-7 AMB Questionnaire DESHAUN-7 Date DESHAUN - 7 assessed: 07/24/25 Feeling nervous, anxious, or on edge: 0 = Not at all Not being able to stop or control worryin = Not at all Worrying too much about different things: 0 = Not at all Trouble relaxin = Not at all Being so restless that it is hard to sit still: 0 = Not at all Becoming easily annoyed or irritable: 0 = Not at all Feeling afraid as if something awful might happen: 0 = Not at all Total DESHAUN-7 score (0-4 normal; 5-9 mild; 10-14 moderate; 15-21 severe): 0 Source: Developed by Drs. Ganesh Webster, Anila Pacheco, Prabhu Torrez and colleagues, with an educational anabelle from [employer]. Review of Systems Const Denies chills, Denies fatigue, Denies fever(s), Denies headache(s) and Denies weakness ENT Denies dizziness and Denies headache(s) Card Denies chest pain, Denies lightheadedness, Denies dyspnea and Denies other (Palpitations) Resp Denies cough, Denies dyspnea, Denies wheezing and Denies other ( shortness of breath) Musc Denies numbness and Denies tingling Neuro Denies dizziness, Denies headache(s), Denies numbness, Denies tingling, Denies paresthesias and Denies weakness Psych Denies anxiety and Denies depression Endo Denies fatigue Aller/Immun Denies wheezing Physical exam (Primary Care) Vital Signs: Last Vital Signs Temp 98.5 F 07/24/25 10:16 Pulse 69 07/24/25 10:16 Resp 16 07/24/25 10:16 BP 126/70 07/24/25 10:16 Pulse Ox 98 07/24/25 10:16 Oxygen Delivery Method Room Air 07/24/25 10:16 BMI result Body Mass Index 31.3 Tobacco/Smoking Status: Tobacco use Status Tobacco use date assessed 07/24/25 07/24/25 10:19 Patient Tobacco Use Status Never used Tobacco 07/24/25 10:16 e-Cigarette/Vaping Use Never Used 07/24/25 10:19 PHQ-9: PHQ-9 Score PHQ-9: Total score 0 07/24/25 10:10 Depression Screening Interpretation: Negative Thrive Assessment: Date of Thrive Assessment Date Thrive assessed 07/24/25 07/24/25 09:55 Currently or been in a relationship where the following occur: No concerns reported Const General: no acute distress and well developed Nutritional Appearance: well nourished Orientation/consciousness: patient oriented x3 [facility] Head: Yes normocephalic and Yes atraumatic Eyes General: appearance normal, both eyes and all related structures Pupils: Equal, round and reactive pupils present EOM: EOMs intact bilaterally Resp Effort & Inspection: normal respiratory effort Auscultation: clear to auscultation bilaterally Cardio Rate: regular rate Rhythm: regular rhythm Heart sounds: S1 normal heart sound present, S2 normal heart sound present, no gallops, no murmurs and no rubs Neuro General: patient oriented x3 and gait normal Cranial nerves: Yes Equal, round and reactive pupils present Psych Affect: normal affect Coding Level of Care Code New Pt Level 3 (79112) Diagnoses HTN (hypertension) I10 Spinal stenosis of lumbar region with neurogenic claudication M48.062 Neurogenic claudication status: with neurogenic claudication History of vertebral fracture Z87.81 Laboratory exam ordered as part of routine general medical examination Z00.00 Additional Codes PHQ-9 - 81958 - PHQ-9 Billing: Yes ([id number]) Assessment & Plan Assessment & Plan (1) HTN (hypertension): Code(s): I10 - Essential (primary) hypertension Category: Medical Plan: Blood pressure is controlled. Goal is less than 140/90 Continue current medications (2) Lumbar spinal stenosis: Code(s): M48.061 - Spinal stenosis, lumbar region without neurogenic claudication Category: Medical Qualifiers: Neurogenic claudication status: with neurogenic claudication Qualified Code(s): M48.062 - Spinal stenosis, lumbar region with neurogenic claudication Plan: Lumbar spinal stenosis with some lower extremity weakness Patient says pain is currently well controlled after her recent surgery in April. She is taking celecoxib for back pain as well as arthritis pain and also uses some acetaminophen Continue current medication regimen I recommended she consider gentle exercises to keep abdominal and back muscles strong Follow-up with neuro spine as recommended (3) History of vertebral fracture: Code(s): Z87.81 - Personal history of (healed) traumatic fracture Category: Medical Plan: As above (4) Laboratory exam ordered as part of routine general medical examination: Code(s): Z00.00 - Encounter for general adult medical examination without abnormal findings Category: Medical Plan: Check labs Orders: Orders Comprehensive [place]. Panel Fast Today Z00.00 - Encounter for general adult medical examination without abnormal findings Lipid Panel Today Z00.00 - Encounter for general adult medical examination without abnormal findings Microalbumin, Random (w Creat) Today I10 - Essential (primary) hypertension TSH reflex Free T4 Today Z00.00 - Encounter for general adult medical examination without abnormal findings UA CC w/rflx Micro + Cult Today Z00.00 - Encounter for general adult medical examination without abnormal findings Vitamin B12 and Folate Today E53.8 - Deficiency of other specified B group vitamins Complete Blood Count Auto Diff Today Z00.00 - Encounter for general adult medical examination without abnormal findings Vitamin D 25-OH Total Today E55.9 - Vitamin D deficiency, unspecified
[2025-07-24 10:16] VITALS: BP 126/70; PULSE 69; RESP 16; TEMP 36.9; O2SAT 98; BMI 31.3
== END 2025-07-24 12:12 | disposition home or self-care (01) ==
LOC: HO.HMCFM 09:48
PROVIDERS: PCP Family Medicine; Visit Provider Family Medicine
DX: I10 Essential (primary) hypertension (principal); M48.062 Spinal stenosis, lumbar region with neurogenic claudication; Z87.81 Personal history of (healed) traumatic fracture; Z00.00 Encounter for general adult medical examination without abnormal findings

== ENCOUNTER → 2025-07-24 09:47 | Outpatient (BNVA) | payer MEDICARE, SELFPAY | PROVIDERS: PCP Internal Medicine Pulmonary Disease; Visit Provider Family Medicine | DX: I10 Essential (primary) hypertension (principal); M48.062 Spinal stenosis, lumbar region with neurogenic claudication; Z87.81 Personal history of (healed) traumatic fracture; Z13.31 Encounter for screening for depression; Z13.39 Encounter for screening examination for other mental health and behavioral disorders; E53.8 Deficiency of other specified B group vitamins | CPT/HCPCS: 96127; 99202 ==